=== PATIENT | female | born 1940 | race Caucasian/White ===

== ENCOUNTER 2019-05-05 06:55 | Inpatient (IN) ==
[2019-05-05] MEDS ORDERED: ONDANSETRON INJ 2 MG/ML 2 ML VIAL IV STA (07:12)
[2019-05-05] MEDS ORDERED: ASPIRIN CHEW 324 MG PO STA (07:12)
--- NOTE | 2019-05-05 07:17 | Emergency Department Note ---
History of Present Illness General Chief complaint: Arm Pain Stated complaint: LFT ARM PAIN Time Seen by Provider: 05/05/19 07:04 History of Present Illness Maximum Pain Intensity: 6 This 78-year-old female with a history of CAD with bypass and stent placement presents the ER with chief complaint of left arm and jaw pain and chest pain. The patient states that the chest pain is minimal. She is unable to give it a number on a scale of 1-10. The patient states that the pain is mainly at her elbow but also points to her shoulder and into her hand. She states the pain started at 5:00 this morning. The patient is not on any blood thinners. She normally takes an aspirin in the morning but did not take it this morning. The patient denies any increased shortness of breath. The daughter states that the patient was dizzy yesterday but the patient is not dizzy today. The patient is diabetic and after she ate yesterday she felt better. The patient denies any leg pain or swelling in her legs. The patient is followed by Dr. Gupta. The patient denies tobacco use. She has a history of hypertension and hyperlipidemia. Home Medications Home Medications Medication Instructions Recorded Confirmed Type aspirin [Aspir-81] 81 mg PO HS 06/12/18 05/05/19 History famotidine 10 mg PO BIDM 06/12/18 05/05/19 History omega 0-dty-xmu-fish oil [Fish Oil] 1,000 mg PO BIDM 06/12/18 05/05/19 History rosuvastatin 40 mg PO HS 06/12/18 05/05/19 History blood sugar diagnostic #10 ea 09/25/18 04/10/19 History blood-glucose meter #1 ea 09/25/18 04/10/19 History ranolazine 500 mg tablet,extended 500 mg PO Q12H #180 tab 11/13/18 05/05/19 Rx release,12 hr furosemide 20 mg tablet 10 mg PO QAM #30 tab 01/30/19 05/05/19 Rx insulin glargine 100 unit/mL (3 14 units SUBCUT BID #3 ml 01/30/19 05/05/19 Rx mL) subcutaneous pen insulin lispro 100 unit/mL 9 unit SUBCUT TID #3 ml 01/30/19 05/05/19 Rx subcutaneous pen levothyroxine 50 mcg tablet 50 mcg PO .COMPLEX #30 tab 01/30/19 05/05/19 Rx pen needle, diabetic 32 gauge x #600 ea 04/10/19 04/10/19 Rx 5/32" amlodipine 2.5 mg PO QAM 05/05/19 05/05/19 History losartan 50 mg PO QAM 05/05/19 05/05/19 History metoprolol succinate 50 mg PO HS 05/05/19 05/05/19 History Allergies Allergy/AdvReac Type Severity Reaction Status Date / Time risperidone [From Risperdal] Allergy Unknown ON [facility] Verified 05/05/19 07:41 LIST Past Med/Surg History Medical History Anemia Chronic kidney disease, stage IV (severe) CKD (chronic kidney disease) Coronary artery disease involving coronary bypass graft 1995 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 Diabetes Diabetic retinopathy, nonproliferative GERD without esophagitis History of breast cancer Lumpectomy plus radiation Hyperlipidemia Hypothyroidism Mild cardiomegaly 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 Surgical History H/O lumpectomy left breast 1984 History of appendectomy History of lumbar surgery Family History Brother Alcohol abuse Heart disease Diabetes Hypertension Kidney disease Myocardial infarction Father Myocardial infarction Hypertension Diabetes Heart disease Stroke, Onset Age: 56 of stroke at age 56 Mother Heart disease Diabetes Gallbladder disease Myocardial infarction Unknown Breast cancer Other Family history non-contributory Social History Preferred Language: Polish Communication Ability: Effective Visual Impairment: No Limitations Hearing Ability: Normal Beliefs That Will Affect Care: None marital status: / Current Living Situation: Alone current occupational status: retired Other Information That Helps Us Care for You: No Feels Safe at Home: Yes Safety Concerns: Feels Safe At This Time Smoking Status: Never smoker Hx Alcohol Use: No Hx Substance Use: No Childhood Exposure to Second-Hand Smoke: No Dental Care, Regularly: No Physical Activity Frequency: Daily Seatbelt Use: always Sunscreen Use: No Review of Systems A total of 10 systems reviewed and were otherwise negative Physical Exam Vital Signs Vital Signs - 24 hr 05/05/19 06:57 05/05/19 07:35 05/05/19 07:40 Temperature 36.7 C Temperature Source Oral Pulse Rate 64 63 Pulse Rate from SpO2 Sensor 64 Respiratory Rate 18 19 Respiratory Effort / Characteristics Non-Labored Respiratory Depth Normal Blood Pressure 157/80 H 149/73 H Blood Pressure Mean 105 115 Pulse Oximetry 99 99 97 Oxygen Delivery Method Room Air Room Air Room Air Sepsis Recent Fever Within 48 Hours No Sepsis Action Taken by Nursing No Action Required 05/05/19 08:00 05/05/19 08:30 05/05/19 09:00 Temperature Temperature Source Pulse Rate 62 63 62 Pulse Rate from SpO2 Sensor 69 63 62 Respiratory Rate 12 21 22 Respiratory Effort / Characteristics Respiratory Depth Blood Pressure 177/64 H 140/93 154/91 H Blood Pressure Mean 104 119 119 Pulse Oximetry 98 99 98 Oxygen Delivery Method Room Air Room Air Room Air Sepsis Recent Fever Within 48 Hours Sepsis Action Taken by Nursing 05/05/19 09:30 Temperature Temperature Source Pulse Rate 64 Pulse Rate from SpO2 Sensor 63 Respiratory Rate 17 Respiratory Effort / Characteristics Respiratory Depth Blood Pressure 135/62 Blood Pressure Mean 92 Pulse Oximetry 100 Oxygen Delivery Method Sepsis Recent Fever Within 48 Hours Sepsis Action Taken by Nursing GENERAL: 78-year-old female appears in no acute distress. MENTAL Status: Alert and oriented x3. Thought processes good. The patient answers questions appropriately. No slurring of speech. EYES: PERRLA. EOMs intact. EARS: Canals clear. TMs without fluid level noted. NECK: Supple, no lymphadenopathy noted. No carotid bruits noted. LUNGS: Clear auscultation without wheezes rales or rhonchi. CARDIAC: Regular rate and rhythm 2 out of 6 murmur noted at the right sternal border. Pulses is full and equal throughout. ABDOMEN: Positive bowel sounds all 4 quadrants. Soft, nontender to palpation without organomegaly or masses. LOWER EXTREMITIES: No cyanosis or edema noted. Mild tenderness palpation over both calves. NEURO:Cranial nerves two through 12 intact. Cerebellar function intact with [id number]. Fine motor intact with alternating finger motions. Course Administered Medications [facility]ip[facility] ([facility]asc) [facility] [place] Stop: 06/04/19 10:28 Last Admin: 05/05/19 11:22 Dose: 2.5 mg Documented by: [id number] Aspirin (Ecotrin Ectab) 81 mg PO HS [facility] Stop: 06/04/19 20:59 Last Admin: 05/05/19 20:36 Dose: 81 mg Documented by: [id number] Famotidine (Pepcid) 10 mg PO BIDM [facility] Stop: 06/04/19 16:59 Last Admin: 05/05/19 16:45 Dose: 10 mg Documented by: [id number] Fish Oil (Raymond-3 (Purified Fish Oil)) 1 gm PO BIDM [facility] Stop: 06/04/19 16:59 Last Admin: 05/05/19 16:45 Dose: 1 gm Documented by: [id number] Sodium Chloride (Nss 1000ml) 1,000 mls @ 75 mls/hr IV .[id number] [facility] Stop: 06/04/19 10:59 Last Admin: 05/06/19 00:58 Dose: 75 mls/hr Documented by: [id number] Infusion: 05/06/19 00:42 Dose: 75 mls/hr Documented by: [id number] Admin: 05/05/19 11:22 Dose: 75 mls/hr Documented by: [id number] Heparin Sodium/Dextrose (Heparin Sodium/Dextrose) 25,000 units in 500 mls @ 23 mls/hr IV .[id number] [facility]; Protocol Stop: 06/04/19 12:29 Last Admin: 05/05/19 13:24 Dose: 1,150 units/hr, 23 mls/hr Documented by: [id number] Cosigned by: [id number] Insulin Aspart (Novolog Flexpen) 0 units SC ACHS [facility] Stop: 06/04/19 11:29 Last Admin: 05/05/19 20:37 Dose: Not Given Documented by: [id number] Cosigned by: [id number] Admin: 05/05/19 16:47 Dose: 13 units Documented by: [id number] Cosigned by: [id number] Admin: 05/05/19 12:09 Dose: 5 units Documented by: [id number] Cosigned by: [id number] Levothyroxine Sodium (Synthroid) 50 mcg PO DAILYBB [facility] Stop: 06/04/19 10:28 Last Admin: 05/06/19 05:33 Dose: 50 mcg Documented by: [id number] Admin: 05/05/19 11:23 Dose: 50 mcg Documented by: [id number] Losartan Potassium (Cozaar) [facility] [place] Stop: 06/04/19 10:28 Last Admin: 05/05/19 11:23 Dose: 50 mg Documented by: [id number] Metoprolol Succinate (Toprol Xl) 50 mg PO [facility] Stop: 06/04/19 20:59 Last Admin: 05/05/19 20:36 Dose: 50 mg Documented by: [id number] Ranolazine (Ranexa) 500 mg PO Q12 [facility] Stop: 06/04/19 10:28 Last Admin: 05/05/19 20:36 Dose: 500 mg Documented by: [id number] Admin: 05/05/19 11:23 Dose: 500 mg Documented by: [id number] Rosuvastatin Calcium (Crestor) 40 mg PO [facility] Stop: 06/04/19 20:59 Last Admin: 05/05/19 20:36 Dose: 40 mg Documented by: [id number] Discontinued Medications Aspirin (Aspirin) 324 mg PO NOW STA Stop: 05/05/19 07:13 Last Admin: 05/05/19 07:42 Dose: 324 mg Documented by: [id number] Clopidogrel Bisulfate (Plavix) 300 mg PO NOW ONE Stop: 05/05/19 12:33 Last Admin: 05/05/19 14:33 Dose: 300 mg Documented by: [id number] Heparin Sodium/Dextrose () 1 ea IV Q1H [facility]; Protocol Stop: 06/04/19 12:24 Last Admin: 05/05/19 14:50 Dose: Not Given Documented by: [id number] Admin: 05/05/19 14:33 Dose: 1 ea Documented by: [id number] Admin: 05/05/19 13:24 Dose: Not Given Documented by: [id number] Nitroglycerin (Nitro-Bid 2%) 1 inch EXT NOW ONE Stop: 05/05/19 07:22 Last Admin: 05/05/19 07:42 Dose: 1 inch Documented by: [id number] Ondansetron HCl (Zofran) 4 mg IV NOW STA Stop: 05/05/19 07:13 Last Admin: 05/05/19 07:42 Dose: 4 mg Documented by: [id number] Medical Decision Making Differential Diagnosis Acute MA, angina, cervical radiculopathy Medical Records Attestation: I reviewed the patient's medical records. Home Medications Current Medication List: was personally reviewed by me Laboratory Data Attestation: I reviewed the patient's lab results. Result diagrams: 05/06/19 05:42 05/05/19 07:34 Lab Results 05/05/19 05/05/19 05/05/19 Range/Units 07:15 07:34 07:34 WBC 8.30 (4.8-10.8) K/uL RBC 3.68 L (4.2-5.4) M/uL Hgb 11.0 L (12.0-16.0) g/dL Hct 33.4 L (37-47) % MCV 90.8 (80-100) fL MCH 29.9 (25-34) pg MCHC 32.9 (32-36) g/dL RDW Std Deviation 45.1 (36.4-46.3) fL RDW Coeff of Shelli 13.6 (11.5-14.5) % Plt Count 212 (130-400) K/uL MPV 10.6 H (7.4-10.4) fL Immature Gran % (Auto) 0.5 % Neut % (Auto) 60.9 % Lymph % (Auto) 26.6 % Borden % (Auto) 8.2 % Eos % (Auto) 3.7 % Baso % (Auto) 0.1 % Immature Gran # (Auto) 0.04 H (0.00-0.02) K/uL Neut # (Auto) 5.05 (1.4-6.5) K/uL Lymph # (Auto) 2.21 (1.2-3.4) K/uL Borden # (Auto) 0.68 H (0.11-0.59) K/uL Eos # (Auto) 0.31 (0-0.5) K/uL Baso # (Auto) 0.01 (0-0.2) K/uL PT 10.9 (9.0-12.0) Seconds INR 1.0 (0.9-1.1) APTT 29.2 (21.0-31.0) Seconds PTT Ratio 1.0 Sodium (136-145) mmol/L Potassium (3.5-5.1) mmol/L Chloride (98-107) mmol/L Carbon Dioxide (21-32) mmol/L Anion Gap (3-11) BUN (7-18) mg/dl Creatinine (0.6-1.2) mg/dl Est Cr Clr Drug Dosing Est GFR ( Amer) Est GFR (Non-Af Amer) BUN/Creatinine Ratio (10-20) Glucose (70-99) mg/dl POC Glucose 211 H (70-99) mg/dl Calcium (8.5-10.1) mg/dl Total Bilirubin (0.2-1) mg/dl AST (15-37) U/L ALT (12-78) U/L Alkaline Phosphatase (45-117) U/L CK-MB (CK-2) (0.5-3.6) ng/ml Troponin I (0-0.045) ng/ml Total Protein (6.4-8.2) gm/dl Albumin (3.4-5.0) gm/dl Globulin (2.5-4.0) gm/dl Albumin/Globulin Ratio (0.9-2) Lipase (73-393) U/L 05/05/19 Range/Units 07:34 WBC (4.8-10.8) K/uL RBC (4.2-5.4) M/uL Hgb (12.0-16.0) g/dL Hct (37-47) % MCV (80-100) fL MCH (25-34) pg MCHC (32-36) g/dL RDW Std Deviation (36.4-46.3) fL RDW Coeff of Shelli (11.5-14.5) % Plt Count (130-400) K/uL MPV (7.4-10.4) fL Immature Gran % (Auto) % Neut % (Auto) % Lymph % (Auto) % Borden % (Auto) % Eos % (Auto) % Baso % (Auto) % Immature Gran # (Auto) (0.00-0.02) K/uL Neut # (Auto) (1.4-6.5) K/uL Lymph # (Auto) (1.2-3.4) K/uL Borden # (Auto) (0.11-0.59) K/uL Eos # (Auto) (0-0.5) K/uL Baso # (Auto) (0-0.2) K/uL PT (9.0-12.0) Seconds INR (0.9-1.1) APTT (21.0-31.0) Seconds PTT Ratio Sodium 136 (136-145) mmol/L Potassium 4.9 (3.5-5.1) mmol/L Chloride 101 (98-107) mmol/L Carbon Dioxide 28 (21-32) mmol/L Anion Gap 7.0 (3-11) BUN 43 H (7-18) mg/dl Creatinine 2.25 H (0.6-1.2) mg/dl Est Cr Clr Drug Dosing Not Reportable Est GFR ( Amer) 23.4 Est GFR (Non-Af Amer) 20.2 BUN/Creatinine Ratio 19.1 (10-20) Glucose 230 H (70-99) mg/dl POC Glucose (70-99) mg/dl Calcium 9.7 (8.5-10.1) mg/dl Total Bilirubin 0.5 (0.2-1) mg/dl AST 16 (15-37) U/L ALT 15 (12-78) U/L Alkaline Phosphatase 66 (45-117) U/L CK-MB (CK-2) < 1.0 (0.5-3.6) ng/ml Troponin I 0.099 H* (0-0.045) ng/ml Total Protein 8.5 H (6.4-8.2) gm/dl Albumin 3.2 L (3.4-5.0) gm/dl Globulin 5.2 H (2.5-4.0) gm/dl Albumin/Globulin Ratio 0.6 L (0.9-2) Lipase 94 (73-393) U/L Imaging Data Attestation: I personally reviewed and interpreted this imaging study as follows: My Impression: No acute infiltrate noted Radiologist's Impression: XR chest 1V portable CLINICAL HISTORY: 78 years-old Female presenting with Chest Pain. TECHNIQUE: Portable upright AP view of the chest was obtained. COMPARISON: 06/12/2018. FINDINGS: Median sternotomy wires and mediastinal surgical clips noted. Atherosclerosis of the thoracic aorta. Mitral annular calcification noted. Cardiac silhouette normal in size. Mildly low lung volumes and heterogeneity of lung parenchyma. Minimal peripheral left basilar opacity. No large effusion or pneumothorax. Degenerative changes of the thoracic spine. Upper abdomen normal. IMPRESSION: 1. Minimal left basilar opacity, possibly atelectasis or scarring. No convincing evidence of acute cardiopulmonary disease. ACT 112: Negative or not required by law. Electronically signed by: Jeff Gilbert M.D. 05/05/2019 7:45 AM Dictated: 05/05/1943 Transcribed: 05/05/19742 ECG Data Indication: + chest pain Rate (beats per minute): 64 Rhythm: + normal sinus ECG ST segments: + Nonspecific ST abnormalities Comparison ECG Date: from (June 12, 2018) Change: the following changes noted Additional Comments: New right bundle branch block MDM Narrative The patient was evaluated. The patient was placed on a manager cardiac with a rate of 68. Patient was placed on continuous pulse ox. IV access was obtained. EKG was ordered interpreted as above with new right bundle ramu block but no ST changes as compared to prior EKG of June 122018 see above. The patient was given 1 inch of Nitropaste. Patient was given 324 mg of chewable aspirin. She was given Zofran 4 mg IV for nausea. CBC differential, renal profile, LFTs, coags, troponin, CK-MB were ordered. Portable chest x-ray was ordered turbid by the radiologist and myself as above without any acute findings. White count was normal at 8.3, hemoglobin slightly low 11.0 hematocrit low at 33.4. Coags were normal. The patient was reevaluated and states that her chest pain was still intermittent but not current at this time. The patient also stated that this felt similar to when she had angina prior to her bypass surgery many years ago. The patient's troponin was bumped at 0.099. BUN was elevated at 43 and creatinine was 2.25. This is consistent with her chronic renal disease. , drinking water technician was contacted as well as the not any hospitalist for admission. The patient was independently evaluated by Dr. aPrker who agrees with treatment plan. Repeat EKG was ordered without any change from the first EKG. Impression & Plan Chest pain, CAD (coronary artery disease), Elevated troponin Discharge Plan Visit Data *Final* Discharge Date/Time: 05/05/19 10:00 Chief Complaint: Arm Pain Stated Complaint: LFT ARM PAIN ED Provider: [facility] ED Midlevel Provider: Sumaya Dunne Discharge Problem: Chest pain, CAD (coronary artery disease), Elevated troponin Patient Disposition: Admitted As Inpatient Condition: Good Discharge Instructions Interventions: ED Discharge Assessment Last Done: 05/05/19 10:00 Discharge Problem: Chest pain Qualifiers: Chest pain type: unspecified Qualified Code(s): R07.9 - Chest pain, unspecified CAD (coronary artery disease) Qualifiers: Coronary Disease-Associated Artery/Lesion type: unspecified vessel or lesion type [place] vs. transplanted heart: [place] heart Associated angina: angina presence unspecified Qualified Code(s): I25.10 - Atherosclerotic heart disease of [place] coronary artery without angina pectoris
[2019-05-05] MEDS ORDERED: NITROGLYCERIN 2% OINTMENT 30GM TUBE EXT ONE (07:21)
[2019-05-05 07:43] LABS: Basophils # (auto) 0.01 K/uL (0-0.2); Basophils % (auto) 0.1 %; Eosinophils # (auto) 0.31 K/uL (0-0.5); Eosinophils % (auto) 3.7 %; Hematocrit (blood only) 33.4 % (37-47); Immature Granulocytes # (auto) 0.04 K/uL (0.00-0.02); Immature Granulocytes % (auto) 0.5 %; Lymphocytes # (auto) 2.21 K/uL (1.2-3.4); Lymphocytes % (auto) 26.6 %; Mean Corpuscular Hemoglobin 29.9 pg (25-34); Mean Corpuscular Hgb Conc 32.9 g/dL (32-36); Mean Corpuscular Volume 90.8 fL (80-100); Mean Platelet Volume 10.6 fL (7.4-10.4); Monocytes # (auto) 0.68 K/uL (0.11-0.59); Monocytes % (auto) 8.2 %; Neutrophils # (auto) 5.05 K/uL (1.4-6.5); Neutrophils % (auto) 60.9 %; Platelet Count 212 K/uL (130-400); RDW Coefficient of Variation 13.6 % (11.5-14.5); RDW Standard Deviation 45.1 fL (36.4-46.3); Red Blood Count 3.68 M/uL (4.2-5.4)
--- NOTE | 2019-05-05 07:46 | XRay Report ---
XR chest 1V portable CLINICAL HISTORY: 78 years-old Female presenting with Chest Pain. TECHNIQUE: Portable upright AP view of the chest was obtained. COMPARISON: 06/12/2018. FINDINGS: Median sternotomy wires and mediastinal surgical clips noted. Atherosclerosis of the thoracic aorta. Mitral annular calcification noted. Cardiac silhouette normal in size. Mildly low lung volumes and he terogeneity of lung parenchyma. Minimal peripheral left basilar opacity. No large effusion or pneumot horax. Degenerative changes of the thoracic spine. Upper abdomen normal. IMPRESSION: 1. Minimal left basilar opacity, possibly atelectasis or scarring. No convincing evidence of acute c ardiopulmonary disease. ACT 112: Negative or not required by law. Electronically signed by: Jeff Gilbert M.D. 05/05/2019 7:45 AM
[2019-05-05 07:54] LABS: Partial Thromboplastin Time 29.2 Seconds (21.0-31.0); Prothrombin Time 10.9 Seconds (9.0-12.0)
[2019-05-05 08:01] LABS: Alanine Aminotransferase 15 U/L (12-78); Albumin Level 3.2 gm/dl (3.4-5.0); Aspartate Aminotransferase 16 U/L (15-37); BUN Creatinine Ratio 19.1 (10-20); Blood Urea Nitrogen 43 mg/dl (7-18); Calcium 9.7 mg/dl (8.5-10.1); Carbon Dioxide 28 mmol/L (21-32); Chloride 101 mmol/L (98-107); Est GFR (African American) 23.4; Est GFR (Non-African American) 20.2; Glucose 230 mg/dl (70-99); Lipase 94 U/L (73-393); Potassium 4.9 mmol/L (3.5-5.1); Sodium 136 mmol/L (136-145)
[2019-05-05 08:11] LABS: Albumin Globulin Ratio 0.6 (0.9-2); Alkaline Phosphatase 66 U/L (45-117); Bilirubin,Total 0.5 mg/dl (0.2-1); Creatine Kinase MB < 1.0 ng/ml (0.5-3.6); Globulin 5.2 gm/dl (2.5-4.0); Total Protein 8.5 gm/dl (6.4-8.2); Troponin I 0.099 ng/ml (0-0.045)
--- NOTE | 2019-05-05 08:25 | Emergency Department Note ---
ED Visit Note Patient was seen by our PA/ORTHOPEDIC PHYSICAL THERAPIST. I was involved in the patient's care and did evaluate the patient myself. I was involved in the care throughout the ER stay. Patient presents with chest and left arm pain. She does have a coronary history. She has a mild elevation to her cardiac troponin, her EKG does not show any acute ST changes. Hospitalization is warranted. She has received aspirin and nitroglycerin paste. .
--- NOTE | 2019-05-05 08:31 | History & Physical Report ---
Date of Service May 05, 2019 History of Present Illness Primary Care Provider: JERONIMO Raines Allergies Allergy/AdvReac Type Severity Reaction Status Date / Time risperidone [From Risperdal] Allergy Unknown ON [facility] Verified 05/05/19 07:41 LIST Home Medications Home Medications Medication Instructions Recorded Confirmed Type aspirin [Aspir-81] 81 mg PO HS 06/12/18 05/05/19 History famotidine 10 mg PO BIDM 06/12/18 05/05/19 History omega 2-ziy-zfs-fish oil [Fish Oil] 1,000 mg PO BIDM 06/12/18 05/05/19 History rosuvastatin 40 mg PO HS 06/12/18 05/05/19 History blood sugar diagnostic #10 ea 09/25/18 04/10/19 History blood-glucose meter #1 ea 09/25/18 04/10/19 History ranolazine 500 mg tablet,extended 500 mg PO Q12H #180 tab 11/13/18 05/05/19 Rx release,12 hr furosemide 20 mg tablet 10 mg PO QAM #30 tab 01/30/19 05/05/19 Rx insulin glargine 100 unit/mL (3 14 units SUBCUT BID #3 ml 01/30/19 05/05/19 Rx mL) subcutaneous pen insulin lispro 100 unit/mL 9 unit SUBCUT TID #3 ml 01/30/19 05/05/19 Rx subcutaneous pen levothyroxine 50 mcg tablet 50 mcg PO .COMPLEX #30 tab 01/30/19 05/05/19 Rx pen needle, diabetic 32 gauge x #600 ea 04/10/19 04/10/19 Rx 5/32" amlodipine 2.5 mg PO QAM 05/05/19 05/05/19 History losartan 50 mg PO QAM 05/05/19 05/05/19 History metoprolol succinate 50 mg PO HS 05/05/19 05/05/19 History Past Med/Surg History Medical History Anemia Chronic kidney disease, stage IV (severe) CKD (chronic kidney disease) Coronary artery disease involving coronary bypass graft 1995 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 Diabetes Diabetic retinopathy, nonproliferative GERD without esophagitis Hyperlipidemia Hypothyroidism Mild cardiomegaly 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 Surgical History H/O lumpectomy left breast 1985 History of appendectomy History of lumbar surgery Family History Brother Alcohol abuse Heart disease Diabetes Hypertension Kidney disease Myocardial infarction Father Myocardial infarction Hypertension Diabetes Heart disease Mother Heart disease Diabetes Gallbladder disease Myocardial infarction Unknown Breast cancer Other Family history non-contributory Social History Preferred Language: [place] Communication Ability: Effective Visual Impairment: No Limitations Hearing Ability: Normal Beliefs That Will Affect Care: None marital status: / Current Living Situation: Alone current occupational status: retired Feels Safe at Home: Yes Smoking Status: Never smoker Hx Alcohol Use: No Hx Substance Use: No Childhood Exposure to Second-Hand Smoke: No Dental Care, Regularly: No Physical Activity Frequency: Daily Seatbelt Use: always Sunscreen Use: No Results & Data Vital Signs (Past 12 Hours) Vital Signs Temp Pulse Resp BP Pulse Ox 05/05/19 07:40 97 05/05/19 07:35 63 19 149/73 H 99 05/05/19 06:57 36.7 C 64 18 157/80 H 99 PG Care Time/CCT Total # of Minutes Spent Total Time Spent with Patient: Total time spent is greater than 50% in coordination of care (as documented) at patient's floor/unit and/or counseling patient: Coding
--- NOTE | 2019-05-05 09:30 | History & Physical Report ---
Date of Service May 05, 2019 Assessment & Plan (1) Chest pain: Patient presents with chest pain which started this morning. Currently Nitropaste in place and chest pain is resolved Elevated troponin at 0.099 EKG with new right bundle branch block and some J-point transition Check serial isodose Consult cardiology for evaluation and is much as patient has had previous history of four-vessel CABG and subsequent stent placement CT head is negative We will discuss heparin drip with Dr. Echavarria. In the meantime we will start heparin every 8 hours (2) CAD (coronary artery disease): History of four-vessel CABG 24 years ago Patient then reports catheterization with PCI with multiple stents placed approximately 12 years ago No further intervention over the last 10 years Continue cardioprotective meds including metoprolol, aspirin Patient states that she has never been on an anticoagulant or antiplatelet agent other than aspirin. Monitor on telemetry (3) Hypertension: Home medications include metoprolol, amlodipine, losartan. We will give a.m. doses of those medications now Follow on telemetry Cardiology consult pending. (4) Type 2 diabetes mellitus with complications: Poorly controlled with diabetic complications including retinopathy, neph ropathy, cardiomyopathy Most previous hemoglobin A1c was from 11/2018 and was 9.6 Check hemoglobin A1c with 1:00 labs Continue with NovoLog sliding scale insulin Continue with baseline insulin other than Lantus. We will resume Lantus tomorrow morning once patient's diet is resumed if no catheterization is needed. (5) GERD without esophagitis: Continue on famotidine (6) Chronic kidney disease, stage IV (severe): Patient reports that this is secondary to her poorly controlled diabetes Currently creatinine is 2.25 We will start normal saline solution at 75 mL an hour and follow serial labs Follow urine output Potassium is currently 4.9 No history of dialysis or consideration of dialysis in the past (7) Anemia: MCV is within normal limits Hemoglobin is currently stable above 11 Follow serial labs (8) Hypothyroidism: Continue levothyroxine (9) Hyperlipidemia: Continue rosuvastatin (10) DVT prophylaxis: Patient may require heparin drip For now, heparin 5000 units subcu every 8 hours History of Present Illness Primary Care Provider: JERONIMO Raines Attending: Dr. Lee This is a 78-year-old female with a past medical history of CAD with four-vessel CABG, subsequent stenting, chronic anemia, hypertension, diabetes mellitus type 2 requiring insulin, elevated hemoglobin A1c of 9.6, hypertension, hyperlipidemia, hypothyroidism, CKD stage IV, diabetic retinopathy, and GERD. She states that she woke up this morning with chest pain that was intermittent.She reports that yesterday she had some confusion in the morning that was transient. She states that she had a headache at that time. This morning she states that she woke up about 530 and had chest pain rated 6 out of 10 with pain radiating into the left arm. She denied any shortness of breath. She had no increase of chest pain with ambulation this morning. The patient denies any fever or chills. No recent travel or illness. She called her daughter at home who suggested that she call 911. The patient refused. The daughter then came to the house evaluated the patient and drove her to the emergency room for further evaluation. On arrival the patient was found to have an elevated troponin of 0.099. She also had an EKG which shows new right bundle branch block as well as some J-point transition. The patient is chest point has been transient since arrival in the emergency department. She does have Nitropaste applied which seems to help. The patient currently has no pain of any sort. She has no shortness of breath. She reports no diuresis. There is no sense of impending doom. The patient has a past medical history which includes coronary artery disease with four-vessel CABG 24 years ago. Approximately 12 years ago she had cardiac catheterization with stent placement. She has had no new cardiac events over the last decade. She has no history of carotid bruits or stenosis. She has no pulmonary disease. She states that she smoked for a brief period but did not inhale. She denies tobacco abuse for the past 50 years. The patient has no thromboembolic disease history. She does have a history of breast cancer with lumpectomy greater than 10 years ago. She has no other history of malignancy. Allergies Allergy/AdvReac Type Severity Reaction Status Date / Time risperidone [From Risperdal] Allergy Unknown ON [facility] Verified 05/05/19 07:41 LIST Home Medications Home Medications Medication Instructions Recorded Confirmed Type aspirin [Aspir-81] 81 mg PO HS 06/12/18 05/05/19 History famotidine 10 mg PO BIDM 06/12/18 05/05/19 History omega 7-frs-vjt-fish oil [Fish Oil] 1,000 mg PO BIDM 06/12/18 05/05/19 History rosuvastatin 40 mg PO HS 06/12/18 05/05/19 History blood sugar diagnostic #10 ea 09/25/18 04/10/19 History blood-glucose meter #1 ea 09/25/18 04/10/19 History ranolazine 500 mg tablet,extended 500 mg PO Q12H #180 tab 11/13/18 05/05/19 Rx release,12 hr furosemide 20 mg tablet 10 mg PO QAM #30 tab 01/30/19 05/05/19 Rx insulin glargine 100 unit/mL (3 14 units SUBCUT BID #3 ml 01/30/19 05/05/19 Rx mL) subcutaneous pen insulin lispro 100 unit/mL 9 unit SUBCUT TID #3 ml 01/30/19 05/05/19 Rx subcutaneous pen levothyroxine 50 mcg tablet 50 mcg PO .COMPLEX #30 tab 01/30/19 05/05/19 Rx pen needle, diabetic 32 gauge x #600 ea 04/10/19 04/10/19 Rx 5/32" amlodipine 2.5 mg PO QAM 05/05/19 05/05/19 History losartan 50 mg PO QAM 05/05/19 05/05/19 History metoprolol succinate 50 mg PO HS 05/05/19 05/05/19 History Past Med/Surg History Medical History Anemia Chronic kidney disease, stage IV (severe) CKD (chronic kidney disease) Coronary artery disease involving coronary bypass graft 1995 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 Diabetes Diabetic retinopathy, nonproliferative GERD without esophagitis History of breast cancer Lumpectomy plus radiation Hyperlipidemia Hypothyroidism Mild cardiomegaly 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 Surgical History H/O lumpectomy left breast 1984 History of appendectomy History of lumbar surgery Family History Brother Alcohol abuse Heart disease Diabetes Hypertension Kidney disease Myocardial infarction Father Myocardial infarction Hypertension Diabetes Heart disease Stroke, Onset Age: 56 of stroke at age 56 Mother Heart disease Diabetes Gallbladder disease Myocardial infarction Unknown Breast cancer Other Family history non-contributory Social History Preferred Language: [place] Communication Ability: Effective Visual Impairment: No Limitations Hearing Ability: Normal Beliefs That Will Affect Care: None marital status: / Current Living Situation: Alone current occupational status: retired Other Information That Helps Us Care for You: No Feels Safe at Home: Yes Safety Concerns: Feels Safe At This Time Smoking Status: Never smoker Hx Alcohol Use: No Hx Substance Use: No Childhood Exposure to Second-Hand Smoke: No Dental Care, Regularly: No Physical Activity Frequency: Daily Seatbelt Use: always Sunscreen Use: No Review of Systems Review of Systems: All systems reviewed & are unremarkable except as noted in HPI & below Physical Exam Physical Exam: GENERAL : No acute distress EYES: No icterus, gaze conjugate NOSE: No evidence of epistaxis MOUTH: No lesions or candidiasis. Dentures in place NECK: Supple LUNGS: CTA B/L, no wheezes, rales or rhonchi HEART: Regular, rate controlled ABDOMEN: Soft, NT, ND, BS Present EXTREMITIES: No LE edema, pedal pulses intact NEURO: A&OX3 Results & Data Vital Signs (Past 12 Hours) Vital Signs Temp Pulse Resp BP Pulse Ox 05/05/19 09:00 62 22 154/91 H 98 05/05/19 08:30 63 21 140/93 99 05/05/19 08:00 62 12 177/64 H 98 05/05/19 07:40 97 05/05/19 07:35 63 19 149/73 H 99 05/05/19 06:57 36.7 C 64 18 157/80 H 99 Laboratory Results 05/05/19 07:34 05/05/19 07:34 Abnormal lab results 05/05/19 05/05/19 05/05/19 Range/Units 07:15 07:34 07:34 RBC 3.68 L (4.2-5.4) M/uL Hgb 11.0 L (12.0-16.0) g/dL Hct 33.4 L (37-47) % MPV 10.6 H (7.4-10.4) fL Immature Gran # (Auto) 0.04 H (0.00-0.02) K/uL [place] # (Auto) 0.68 H (0.11-0.59) K/uL BUN 43 H (7-18) mg/dl Creatinine 2.25 H (0.6-1.2) mg/dl Glucose 230 H (70-99) mg/dl POC Glucose 211 H (70-99) mg/dl Troponin I 0.099 H* (0-0.045) ng/ml Total Protein 8.5 H (6.4-8.2) gm/dl Albumin 3.2 L (3.4-5.0) gm/dl Globulin 5.2 H (2.5-4.0) gm/dl Albumin/Globulin Ratio 0.6 L (0.9-2) Diagnostic Findings HEAD CT NONCONTRAST CT DOSE: 537.48 mGy.cm HISTORY: Memory lapse, may need heparin gtt TECHNIQUE: Multiaxial CT images of the head were performed without the use of intravenous contrast. Automated exposure control was utilized for this study. A dose lowering technique was utilized adhering to the principles of ALARA. Comparison: None. Findings: The paranasal sinuses and mastoid air cells are clear. The calvarium and skull base are intact. The ventricles and sulci are within normal limits. There is no mass, hematoma, midline shift, or acute infarct. Impression: No acute intracranial abnormality. Electronically signed by: Cesar Morrison M.D. 05/05/2019 9:55 AM XR chest 1V portable CLINICAL HISTORY: 78 years-old Female presenting with Chest Pain. TECHNIQUE: Portable upright AP view of the chest was obtained. COMPARISON: 06/12/2018. FINDINGS: Median sternotomy wires and mediastinal surgical clips noted. Atherosclerosis of the thoracic aorta. Mitral annular calcification noted. Cardiac silhouette normal in size. Mildly low lung volumes and heterogeneity of lung parenchyma. Minimal peripheral left basilar opacity. No large effusion or pneumothorax. Degenerative changes of the thoracic spine. Upper abdomen normal. IMPRESSION: 1. Minimal left basilar opacity, possibly atelectasis or scarring. No convincing evidence of acute cardiopulmonary disease. Electronically signed by: Jeff Gilbert M.D. 05/05/2019 7:45 AM Code Status & VTE Plan Code Status DNR/DNI. Discussion with patient with daughter in room. VTE Prophylaxis Plan VTE Prophylaxis will be ordered: Yes Supervising Physician Co-Signing Physician Notes Attending Attestation and Admission Note: Pt seen/examined, chart reviewed, care plan d/w PA Boone Cisse. I agree w/ the sebastian components of his documentation. 78yo female with known CAD s/p remote CABG, CKD stage 4, uncontrolled T2DM - presenting with chest pain. Initial troponin positive, and troponin has continued to rise modestly. Given her medical history her presentation is concerning for NSTEMI. During my assessment on the tele unit she denied any cp, dyspnea, or abdominal complaints. PMH, PSH, allergies, meds, sochx, famhx, ros - reviewed VSS gen - NAD neck - no JVD heart - RRR, s1 s2, 2/6 systolic murmur LSB lungs - cta b/l abd - soft NT ext - no edema labs reviewed - elevated Cr, elevated troponin EKG - my reading - NSR, RBBB, j-point elevation inferior leads and anterolateral leads cxr reviewed A/P: 1. probable NSTEMI 2. known CAD 3. h/o CABG 4. uncontrolled T2DM serial troponins appreciate cardiology consultation heparin drip ?cath vs medical management - poor candidate for cath due to CKD serial BMPs titrate lantus and novolog echo results noted w/ preserved EF Jorgito Lee MD PG Care Time/CCT Total # of Minutes Spent Total Time Spent with Patient: Total time spent is greater than 50% in coordination of care (as documented) at patient's floor/unit and/or counseling patient:50 minutes Coding Level of Care Code 55267 Initial Inpt Care Lvl 3 Diagnoses Chest pain R07.9 Chest pain type: unspecified CAD (coronary artery disease) I25.10 Associated angina: angina presence unspecified Coronary Disease-Associated Artery/Lesion type: unspecified vessel or lesion type [place] vs. transplanted heart: [place] heart Hypertension I10 Type 2 diabetes mellitus with complications E11.8 GERD without esophagitis K21.9 Chronic kidney disease, stage IV (severe) N18.4 Anemia D64.9 Hypothyroidism E03.9 Hyperlipidemia E78.5 DVT prophylaxis Z29.9 Time Spent (min) 50 (1) CAD (coronary artery disease) Associated angina: angina presence unspecified Coronary Disease-Associated Artery/Lesion type: unspecified vessel or lesion type [place] vs. transplanted heart: [place] heart Qualified Code(s): I25.10 - Atherosclerotic heart disease of [place] coronary artery without angina pectoris (2) Chest pain Chest pain type: unspecified Qualified Code(s): R07.9 - Chest pain, unspecified
--- NOTE | 2019-05-05 09:56 | CT Scan Report ---
HEAD CT NONCONTRAST CT DOSE: 537.48 mGy.cm HISTORY: Memory lapse, may need heparin gtt TECHNIQUE: Multiaxial CT images of the head were performed without the use of intravenous contrast. A utomated exposure control was utilized for this study. A dose lowering technique was utilized adheri ng to the principles of ALARA. Comparison: None. Findings: The paranasal sinuses and mastoid air cells are clear. The calvarium and skull base are int act. The ventricles and sulci are within normal limits. There is no mass, hematoma, midline shift, or acute infarct. Impression: No acute intracranial abnormality. ACT 112: Negative or not required by law. Electronically signed by: Cesar Morrison M.D. 05/05/2019 9:55 AM
[2019-05-05] MEDS ORDERED: ACETAMINOPHEN 325 MG TAB PO PRN (10:29)
[2019-05-05] MEDS ORDERED: MoRPHine SULFATE 2 MG/ML CARP IV PRN (10:29)
[2019-05-05] MEDS ORDERED: DEXTROSE 50% 50 ML SYRINGE IV PRN (10:29)
[2019-05-05] MEDS ORDERED: MAGNESIUM HYDROXIDE SUSP 30 ML UDC PO PRN (10:29)
[2019-05-05] MEDS ORDERED: CARBOHYDRATES FOR HYPOGLYCEMIA PO PRN (10:29)
[2019-05-05] MEDS ORDERED: PROMETHAZINE HCL 12.5 MG in SODIUM CHLORIDE 0.9% 50 ML IV PRN (10:29)
[2019-05-05] MEDS ORDERED: ALUMINUM/MAGNESIUM SUSP 30 ML UDC PO PRN (10:29)
[2019-05-05] MEDS ORDERED: POLYETHYLENE (MIRALAX) 17 GM PACK PO PRN (10:29)
[2019-05-05] MEDS ORDERED: LOSARTAN POTASSIUM 50 MG TAB PO SCH (10:29)
[2019-05-05] MEDS ORDERED: NITROGLYCERIN SL 0.4 MG/TAB TAB SL PRN (10:29)
[2019-05-05] MEDS ORDERED: GLUCAGON FOR INJ 1 MG VIAL SQ PRN (10:29)
[2019-05-05] MEDS ORDERED: GLUCOSE 10 TABS/TUBE PO PRN (10:29)
[2019-05-05] MEDS ORDERED: GLUCOSE 40% GEL 15 GM TUBE PO PRN (10:29)
[2019-05-05] MEDS: AMLODIPINE BESYLATE 5 MG TAB PO SCH (11:22)
[2019-05-05] MEDS: SODIUM CHLORIDE 0.9% 1000ML 1,000 ML IV SCH (11:22)
[2019-05-05] MEDS: RANOLAZINE 500 MG ER TAB PO SCH ×2 (11:23→20:36)
[2019-05-05] MEDS: LEVOTHYROXINE SODIUM 50 MCG TABLET PO SCH (11:23)
[2019-05-05] MEDS: INSULIN ASPART 100 UNITS/ML 3 ML PEN SC SCH ×3 (12:09→20:37)
[2019-05-05] MEDS ORDERED: CLOPIDOGREL BISULFATE 300 MG TAB PO ONE (12:32)
--- NOTE | 2019-05-05 12:45 | Cardiology Consultation ---
Date of Consultation May 05, 2019 Assessment & Plan (1) Chest pain: Given the patient's history, her symptoms are concerning for unstable angina. She has a very mild elevation in cardiac biomarkers which is different from values obtained previously. Her symptoms lasted well over an hour and I would expect a more significant rise in her markers over the next few hours that this truly represented ischemia. I think would be prudent to put her on a heparin infusion and provide her with some Plavix currently. She is currently pain-free and will continue nitrates. If she truly has unstable angina or evidence of an acute coronary syndrome the general recommendation is for coronary angiography. However, given her renal dysfunction she is at risk of contrast nephropathy and possibly the need for dialysis. I discussed this with her today. The patient in the past has refused dialysis. She seems to be at the mind set that she would not utilize dialysis even if she was in a life-threatening situation. At this point I have stops short of recommending angiography awaiting the results of her additional blood tests. Noninvasive options would include employment of nitrates and dual anti- platelet therapy. This is generally less satisfactory but may be an option if the patient chooses to avoid a catheterization. (2) CAD (coronary artery disease): She has previously undergone surgical and percutaneous intervention. We do not have any records of the interventions performed or her coronary anatomy. I did contact old early head start teacher but his office is closed today and tomorrow. She has been maintained on aspirin, metoprolol and rosuvastatin. She is also on ranolazine presumably for occasional symptoms of chest discomfort. (3) Mitral stenosis: She has moderate mitral stenosis on her echocardiogram today. There is no old echocardiogram to compare with her current study. Do not believe this is contributing to any symptoms currently. With her degree of mitral stenosis and left atrial dilation she is certainly at risk for atrial fibrillation. 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 Again, no old studies of which to compare. She was not familiar with this diagnosis. I do not believe this is an acute finding. Overall LV function remains normal. Occasionally this can be a focus for arrhythmia. However, she does not describe symptoms consistent with ventricular arrhythmias. Will continue her on her current medical regimen both for blood pressure control and placement of beta-blockade. Do not believe this currently represents an indication for anticoagulation long-term. History of Present Illness Reason for Consultation: Chest pain Requesting Physician: Tanna Attending Physician: Jorgito Lee History of Present Illness The patient is a 70-year-old woman with a history of coronary artery disease having previously undergone both surgical and percutaneous revascularization. According to the patient she was woken from sleep early this morning symptoms of left arm discomfort. This discomfort was primarily located in the left elbow. There is also some very mild chest pressure and left jaw discomfort. The symptoms were persistent in nature in fairly mild in severity. It did not appear to change with changes in position or any other intervention. The patient rested but her symptoms persisted for approximately 1 hour before she contacted her daughter who suggested transport to the emergency room. She arrived by private vehicle. At the time of arrival her symptoms were fairly minimal but she did have recurrence in the emergency room that appeared respond to application of topical nitroglycerin. Patient states she has otherwise been feeling well. She has not experienced this symptom since prior to her bypass over 25 years ago. She is fairly sedentary and limited primarily by leg weakness and discomfort. She does not report exertional dyspnea or symptoms of exertional chest pain. She has not been aware of any dizziness or lightheadedness. No syncope. She has rare palpitations which last for approximately 1 minute and are not associated with other symptoms. She claims to be compliant with her medical therapy. She has not noticed any swelling in her lower extremities. She denies orthopnea or paroxysmal nocturnal dyspnea. Currently she claims to be feeling well. No current chest pain. Allergies Allergy/AdvReac Type Severity Reaction Status Date / Time risperidone [From Risperdal] Allergy Unknown ON [facility] Verified 05/05/19 07:41 LIST Home Medications Home Medications Medication Instructions Recorded Confirmed Type aspirin [Aspir-81] 81 mg PO HS 06/12/18 05/05/19 History famotidine 10 mg PO BIDM 06/12/18 05/05/19 History omega 3-qdo-wio-fish oil [Fish Oil] 1,000 mg PO BIDM 06/12/18 05/05/19 History rosuvastatin 40 mg PO HS 06/12/18 05/05/19 History blood sugar diagnostic #10 ea 09/25/18 04/10/19 History blood-glucose meter #1 ea 09/25/18 04/10/19 History ranolazine 500 mg tablet,extended 500 mg PO Q12H #180 tab 11/13/18 05/05/19 Rx release,12 hr furosemide 20 mg tablet 10 mg PO QAM #30 tab 01/30/19 05/05/19 Rx insulin glargine 100 unit/mL (3 14 units SUBCUT BID #3 ml 01/30/19 05/05/19 Rx mL) subcutaneous pen insulin lispro 100 unit/mL 9 unit SUBCUT TID #3 ml 01/30/19 05/05/19 Rx subcutaneous pen levothyroxine 50 mcg tablet 50 mcg PO .COMPLEX #30 tab 01/30/19 05/05/19 Rx pen needle, diabetic 32 gauge x #600 ea 04/10/19 04/10/19 Rx 5/32" amlodipine 2.5 mg PO QAM 05/05/19 05/05/19 History losartan 50 mg PO QAM 05/05/19 05/05/19 History metoprolol succinate 50 mg PO HS 05/05/19 05/05/19 History Patient History Medical History Anemia Chronic kidney disease, stage IV (severe) CKD (chronic kidney disease) Coronary artery disease involving coronary bypass graft 1995 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 Diabetes Diabetic retinopathy, nonproliferative GERD without esophagitis History of breast cancer Lumpectomy plus radiation Hyperlipidemia Hypothyroidism Mild cardiomegaly 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 Surgical History H/O lumpectomy left breast 1984 History of appendectomy History of lumbar surgery Family History Brother Alcohol abuse Heart disease Diabetes Hypertension Kidney disease Myocardial infarction Father Myocardial infarction Hypertension Diabetes Heart disease Stroke, Onset Age: 56 of stroke at age 56 Mother Heart disease Diabetes Gallbladder disease Myocardial infarction Unknown Breast cancer Other Family history non-contributory Social History Preferred Language: Sudanese Communication Ability: Effective Visual Impairment: No Limitations Hearing Ability: Normal Beliefs That Will Affect Care: None marital status: / Current Living Situation: Alone current occupational status: retired Other Information That Helps Us Care for You: No Feels Safe at Home: Yes Safety Concerns: Feels Safe At This Time Smoking Status: Never smoker Hx Alcohol Use: No Hx Substance Use: No Childhood Exposure to Second-Hand Smoke: No Dental Care, Regularly: No Physical Activity Frequency: Daily Seatbelt Use: always Sunscreen Use: No Review of Systems Review of Systems: All systems reviewed & are unremarkable except as noted in HPI & below No recent fevers or chills. Physical Exam Physical Exam: She is alert and oriented x3. Mood affect appear normal. She answered all questions appropriately. HEENT: Sclerae are anicteric. Pupils are equal and reactive to light and accommodation. Extraocular movements were intact. Neuro: Cranial nerves intact Neck: Examination of the submandibular region did not reveal any significant lymphadenopathy. Carotids are palpable bilaterally and free of bruits on auscultation. There was no evidence of jugular venous distention. The thyroid was not enlarged. Lungs: Lungs are clear to auscultation bilaterally. There are no rales wheezes or rhonchi. She has normal respiratory effort without use of accessory muscles. There is normal pulmonary excursion. Cardiac: The rhythm was regular. S1 and S2 were normal. Holosystolic murmur. The PMI was not markedly displaced on palpation. Abdomen: The abdomen was soft and nontender. Extremities: Patient has bilateral radial pulses that are equal in intensity. There is no evidence cyanosis or clubbing. There was no evidence of significant peripheral edema bilaterally, just trace. Skin: There are no rashes noted on examination today. Results & Data ([facility]) Vital Signs (Past 12 Hours) Vital Signs Temp Pulse Pulse Resp BP BP Pulse Ox 05/05/19 12:00 36.6 C 61 18 137/61 100 05/05/19 10:22 36.6 C 67 18 176/68 H 99 05/05/19 09:51 66 17 140/98 96 05/05/19 09:30 64 17 135/62 100 05/05/19 09:00 62 22 154/91 H 98 05/05/19 08:30 63 21 140/93 99 05/05/19 08:00 62 12 177/64 H 98 05/05/19 07:40 97 05/05/19 07:35 63 19 149/73 H 99 05/05/19 06:57 36.7 C 64 18 157/80 H 99 Laboratory Results Abnormal Lab Results 05/05/19 05/05/19 05/05/19 07:15 07:34 07:34 WBC 8.30 RBC 3.68 L Hgb 11.0 L Hct 33.4 L MCV 90.8 MCH 29.9 MCHC 32.9 RDW Std Deviation 45.1 RDW Coeff of Shelli 13.6 Plt Count 212 MPV 10.6 H Immature Gran % (Auto) 0.5 Neut % (Auto) 60.9 Lymph % (Auto) 26.6 [place] % (Auto) 8.2 Eos % (Auto) 3.7 Baso % (Auto) 0.1 Immature Gran # (Auto) 0.04 H Neut # (Auto) 5.05 Lymph # (Auto) 2.21 [place] # (Auto) 0.68 H Eos # (Auto) 0.31 Baso # (Auto) 0.01 PT 10.9 INR 1.0 APTT 29.2 PTT Ratio 1.0 Sodium Potassium Chloride Carbon Dioxide Anion Gap BUN Creatinine Est Cr Clr Drug Dosing Est GFR ( Amer) Est GFR (Non-Af Amer) BUN/Creatinine Ratio Glucose POC Glucose 211 H Calcium Total Bilirubin AST ALT Alkaline Phosphatase CK-MB (CK-2) Troponin I Total Protein Albumin Globulin Albumin/Globulin Ratio Lipase 05/05/19 05/05/19 07:34 12:03 WBC RBC Hgb Hct MCV MCH MCHC RDW Std Deviation RDW Coeff of Shelli Plt Count MPV Immature Gran % (Auto) Neut % (Auto) Lymph % (Auto) [place] % (Auto) Eos % (Auto) Baso % (Auto) Immature Gran # (Auto) Neut # (Auto) Lymph # (Auto) [place] # (Auto) Eos # (Auto) Baso # (Auto) PT INR APTT PTT Ratio Sodium 136 Potassium 4.9 Chloride 101 Carbon Dioxide 28 Anion Gap 7.0 BUN 43 H Creatinine 2.25 H Est Cr Clr Drug Dosing Not Reportable Est GFR ( Amer) 23.4 Est GFR (Non-Af Amer) 20.2 BUN/Creatinine Ratio 19.1 Glucose 230 H POC Glucose 278 H Calcium 9.7 Total Bilirubin 0.5 AST 16 ALT 15 Alkaline Phosphatase 66 CK-MB (CK-2) < 1.0 Troponin I 0.099 H* Total Protein 8.5 H Albumin 3.2 L Globulin 5.2 H Albumin/Globulin Ratio 0.6 L Lipase 94 Diagnostic Findings Chest x-ray obtained the time of admission not reveal any acute cardiopulmonary findings His CT obtained at the time admission not reveal any acute intracranial process. ECG Additional Comments: EKG obtained the time admission reveals normal sinus rhythm with right bundle branch block. No significant ST or T-wave abnormalities. PG Care Time/CCT Total # of Minutes Spent Total Time Spent with Patient: Total time spent is greater than 50% in coordination of care (as documented) at patient's floor/unit and/or counseling patient: Coding Level of Care Code 93496 Initial Inpt Care Lvl 3 Diagnoses Chest pain R07.9 Chest pain type: unspecified CAD (coronary artery disease) I25.10 Associated angina: angina presence unspecified Coronary Disease-Associated Artery/Lesion type: unspecified vessel or lesion type [place] vs. transplanted heart: [place] heart Mitral stenosis I05.0 Ventricular aneurysm I25.3 (1) CAD (coronary artery disease) Associated angina: angina presence unspecified Coronary Disease-Associated Artery/Lesion type: unspecified vessel or lesion type [place] vs. transplanted heart: [place] heart Qualified Code(s): I25.10 - Atherosclerotic heart disease of [place] coronary artery without angina pectoris (2) Chest pain Chest pain type: unspecified Qualified Code(s): R07.9 - Chest pain, unspecified
--- NOTE | 2019-05-05 12:55 | XCELERA ---
[id number] \\[id number]
[2019-05-05] MEDS: HEPARIN SODIUM/DEXTROSE 25,000 UNITS/500 ML BAG IV SCH (13:24)
[2019-05-05] MEDS: Heparin IV Standard *NO* Bolus IV SCH ×3 (13:24→14:50)
[2019-05-05 13:38] LABS: Troponin I 0.183 ng/ml (0-0.045)
[2019-05-05 13:47] LABS: Estimated Average Glucose 252 mg/dl; Hemoglobin A1C 10.4 % (4.5-5.6)
[2019-05-05] MEDS ORDERED: HEPARIN SOD 5,000 UNIT/0.5 ML VIAL SQ SCH (14:00)
[2019-05-05] MEDS ORDERED: INSULIN LISPRO 9 UNIT SQ SCH (14:00)
--- NOTE | 2019-05-05 16:25 | Electrocardiogram Report ---
Test Reason : Blood Pressure : / mmHG Vent. 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
--- NOTE | 2019-05-05 16:25 | Electrocardiogram Report ---
Test Reason : Blood Pressure : / mmHG Vent. 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
[2019-05-05] MEDS: FAMOTIDINE 10 MG TABLET PO SCH (16:45)
[2019-05-05] MEDS: OMEGA-3 (PURIFIED FISH OIL) 1 GM CAP PO SCH (16:45)
[2019-05-05 20:15] LABS: Creatine Kinase MB 1.2 ng/ml (0.5-3.6); Troponin I 0.223 ng/ml (0-0.045)
[2019-05-05] MEDS: METOPROLOL SUCC 50MG EXT REL TAB PO SCH (20:36)
[2019-05-05] MEDS: ASPIRIN 81 MG ECTAB PO SCH (20:36)
[2019-05-05] MEDS: ROSUVASTATIN CALCIUM 20 MG TAB PO SCH (20:36)
[2019-05-06] MEDS: SODIUM CHLORIDE 0.9% 1000ML 1,000 ML IV SCH (00:58)
[2019-05-06] MEDS: LEVOTHYROXINE SODIUM 50 MCG TABLET PO SCH (05:33)
[2019-05-06 06:12] LABS: Basophils # (auto) 0.01 K/uL (0-0.2); Basophils % (auto) 0.1 %; Eosinophils # (auto) 0.11 K/uL (0-0.5); Eosinophils % (auto) 1.3 %; Hematocrit (blood only) 28.5 % (37-47); Hemoglobin 9.1 g/dL (12.0-16.0); Immature Granulocytes # (auto) 0.03 K/uL (0.00-0.02); Immature Granulocytes % (auto) 0.3 %; Lymphocytes # (auto) 2.36 K/uL (1.2-3.4); Lymphocytes % (auto) 27.2 %; Mean Corpuscular Hemoglobin 29.3 pg (25-34); Mean Corpuscular Hgb Conc 31.9 g/dL (32-36); Mean Corpuscular Volume 91.6 fL (80-100); Mean Platelet Volume 10.7 fL (7.4-10.4); Monocytes # (auto) 0.91 K/uL (0.11-0.59); Monocytes % (auto) 10.5 %; Neutrophils # (auto) 5.27 K/uL (1.4-6.5); Neutrophils % (auto) 60.6 %; Platelet Count 171 K/uL (130-400); RDW Coefficient of Variation 13.5 % (11.5-14.5); RDW Standard Deviation 45.2 fL (36.4-46.3); Red Blood Count 3.11 M/uL (4.2-5.4); White Blood Count 8.69 K/uL (4.8-10.8)
[2019-05-06 06:37] LABS: Partial Thromboplastin Ratio 3.7
[2019-05-06 06:38] LABS: BUN Creatinine Ratio 17.9 (10-20); Calcium 8.5 mg/dl (8.5-10.1); Creatinine Clr Calc Pharmacy 17.9 ml/min; Est GFR (African American) 19.5; Est GFR (Non-African American) 16.8
[2019-05-06 06:46] LABS: Partial Thromboplastin Time 103.5 Seconds (21.0-31.0)
[2019-05-06 06:49] LABS: Beta-Hydroxybutyrate 4.2 mg/dl (0.2-2.81)
[2019-05-06] MEDS: FUROSEMIDE 20 MG TAB PO SCH (08:57)
[2019-05-06] MEDS: AMLODIPINE BESYLATE 5 MG TAB PO SCH (08:57)
[2019-05-06] MEDS: OMEGA-3 (PURIFIED FISH OIL) 1 GM CAP PO SCH ×2 (08:57→16:55)
[2019-05-06] MEDS: RANOLAZINE 500 MG ER TAB PO SCH ×2 (08:57→21:23)
[2019-05-06] MEDS: INSULIN GLARGINE SOLOSTAR 100 UNITS/ML 3 ML PEN SQ SCH ×2 (08:58→21:22)
[2019-05-06] MEDS: FAMOTIDINE 10 MG TABLET PO SCH ×2 (08:58→16:55)
[2019-05-06] MEDS: INSULIN ASPART 100 UNITS/ML 3 ML PEN SC SCH ×4 (08:58→21:22)
[2019-05-06] MEDS ORDERED: INSULIN GLARGINE SOLOSTAR 100 UNITS/ML 3 ML PEN SQ SCH (09:00)
--- NOTE | 2019-05-06 11:37 | Cardiology Progress Note ---
Date of Service May 06, 2019 Assessment & Plan (1) Chest pain: Her symptoms likely result from an acute coronary syndrome, unstable angina. The nature of her prior interventions is not documented in her current record. My attempts to obtain her records from her physician's office have been unsuccessful as it is currently closed. I had several discussions with the patient regarding options for evaluation and treatment. Generally speaking cardiac catheterization would be the preferred evaluation and percutaneous intervention the preferred treatment for unstable angina. However, given her renal dysfunction she is at significant risk of contrast nephropathy. Her renal function is slightly worse today. She does appear to have an element of proteinuria in the setting of diabetes which also puts her at higher risk. She asked me to contact her touch up painter's which I have attempted to do. However, he is also out of the office for a few days. The main concern is the risk of renal failure and the need for dialysis. She has stated emphatically that she does not want dialysis. Therefore, in the setting of renal failure from contrast nephropathy she has a risk of . He would be possible to treat her with medical therapy such as heparin for another 24 hours and continued use of Plavix. (2) CAD (coronary artery disease): She has previously undergone surgical and percutaneous intervention. We do not have any records of the interventions performed or her coronary anatomy. Continue aspirin, Plavix, rosuvastatin and ranolazine. She cannot recall why she was placed on ranolazine. She cannot recall symptoms of chest discomfort prior to her current admission. (3) Mitral stenosis: She has moderate mitral stenosis on her echocardiogram. 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 No old records for comparison. (5) Anemia: Her hemoglobin did drop after admission. Unclear if this is entirely dilutional. Given our use of anticoagulants and anti-platelet agents there is some concern regarding bleeding. No obvious bleeding on examination today. Will continue cautiously. Admission and Anticipated Discharge Date Admission Date: May 06, 2019 Subjective This morning patient claims feeling tired. She did not report any additional episodes of left arm, chest or jaw discomfort. She was ambulatory to the bathroom and back without the symptoms. She did report some mild dyspnea. No dizziness. No palpitations. Review of Systems Review of Systems: Per HPI Physical Exam Physical Exam: She is alert and oriented x3. Mood affect appear normal. She answered all questions appropriately. HEENT: Sclerae are anicteric. Pupils are equal and reactive to light and accommodation. Extraocular movements were intact. Neuro: Cranial nerves intact Lungs: Lungs are clear to auscultation bilaterally. There are no rales wheezes or rhonchi. She has normal respiratory effort without use of accessory muscles. There is normal pulmonary excursion. Cardiac: The rhythm was regular. S1 and S2 were normal. Holosystolic murmur. The PMI was not markedly displaced on palpation. Extremities: Patient has bilateral radial pulses that are equal in intensity. There is no evidence cyanosis or clubbing. There was no evidence of significant peripheral edema bilaterally, just trace. Skin: There are no rashes noted on examination today. Results & Data ([facility]) Vital Signs (Past 12 Hours) Vital Signs Temp Pulse Pulse Resp BP Pulse Ox 05/06/19 11:30 37.3 C 63 18 104/57 L 99 05/06/19 07:35 37.1 C 70 19 86/54 L 93 05/06/19 03:56 37.5 C 85 18 103/67 93 05/06/19 00:15 79 05/05/19 23:50 37 C 81 17 124/65 94 Laboratory Results Abnormal Lab Results 05/05/19 05/05/19 05/05/19 12:03 12:48 12:48 WBC RBC Hgb Hct MCV MCH MCHC RDW Std Deviation RDW Coeff of Shelli Plt Count MPV Immature Gran % (Auto) Neut % (Auto) Lymph % (Auto) [place] % (Auto) Eos % (Auto) Baso % (Auto) Immature Gran # (Auto) Neut # (Auto) Lymph # (Auto) [place] # (Auto) Eos # (Auto) Baso # (Auto) APTT PTT Ratio Sodium Potassium Chloride Carbon Dioxide Anion Gap BUN Creatinine Est Cr Clr Drug Dosing Est GFR ( Amer) Est GFR (Non-Af Amer) BUN/Creatinine Ratio Glucose POC Glucose 278 H Estimat Average Glucose 252 Hemoglobin A1c 10.4 H Calcium Total Creatine Kinase 33 CK-MB (CK-2) 1.0 CK/CKMB % Calc 3.0 Troponin I 0.183 H* Beta-Hydroxybutyric Acd 05/05/19 05/05/19 05/05/19 16:16 19:09 19:09 WBC RBC Hgb Hct MCV MCH MCHC RDW Std Deviation RDW Coeff of Shelli Plt Count MPV Immature Gran % (Auto) Neut % (Auto) Lymph % (Auto) [place] % (Auto) Eos % (Auto) Baso % (Auto) Immature Gran # (Auto) Neut # (Auto) Lymph # (Auto) [place] # (Auto) Eos # (Auto) Baso # (Auto) APTT 56.0 H* PTT Ratio 2.0 Sodium Potassium Chloride Carbon Dioxide Anion Gap BUN Creatinine Est Cr Clr Drug Dosing Est GFR ( Amer) Est GFR (Non-Af Amer) BUN/Creatinine Ratio Glucose POC Glucose 302 H* Estimat Average Glucose Hemoglobin A1c Calcium Total Creatine Kinase 39 CK-MB (CK-2) 1.2 CK/CKMB % Calc 3.1 H Troponin I 0.223 H* Beta-Hydroxybutyric Acd 05/05/19 05/06/19 05/06/19 20:11 05:42 05:42 WBC 8.69 RBC 3.11 L Hgb 9.1 L Hct 28.5 L MCV 91.6 MCH 29.3 MCHC 31.9 L RDW Std Deviation 45.2 RDW Coeff of Shelli 13.5 Plt Count 171 MPV 10.7 H Immature Gran % (Auto) 0.3 Neut % (Auto) 60.6 Lymph % (Auto) 27.2 [place] % (Auto) 10.5 Eos % (Auto) 1.3 Baso % (Auto) 0.1 Immature Gran # (Auto) 0.03 H Neut # (Auto) 5.27 Lymph # (Auto) 2.36 [place] # (Auto) 0.91 H Eos # (Auto) 0.11 Baso # (Auto) 0.01 APTT PTT Ratio Sodium 134 L Potassium 5.0 Chloride 103 Carbon Dioxide 24 Anion Gap 7.0 BUN 47 H Creatinine 2.62 H D Est Cr Clr Drug Dosing 17.9 Est GFR ( Amer) 19.5 Est GFR (Non-Af Amer) 16.8 BUN/Creatinine Ratio 17.9 Glucose 304 H* POC Glucose 151 H Estimat Average Glucose Hemoglobin A1c Calcium 8.5 Total Creatine Kinase CK-MB (CK-2) CK/CKMB % Calc Troponin I Beta-Hydroxybutyric Acd 4.20 H 05/06/19 05/06/19 05/06/19 05:42 07:37 07:38 WBC RBC Hgb Hct MCV MCH MCHC RDW Std Deviation RDW Coeff of Shelli Plt Count MPV Immature Gran % (Auto) Neut % (Auto) Lymph % (Auto) [place] % (Auto) Eos % (Auto) Baso % (Auto) Immature Gran # (Auto) Neut # (Auto) Lymph # (Auto) [place] # (Auto) Eos # (Auto) Baso # (Auto) APTT 103.5 H* PTT Ratio 3.7 Sodium Potassium Chloride Carbon Dioxide Anion Gap BUN Creatinine Est Cr Clr Drug Dosing Est GFR ( Amer) Est GFR (Non-Af Amer) BUN/Creatinine Ratio Glucose POC Glucose 309 H* 293 H Estimat Average Glucose Hemoglobin A1c Calcium Total Creatine Kinase CK-MB (CK-2) CK/CKMB % Calc Troponin I Beta-Hydroxybutyric Acd 05/06/19 09:32 WBC RBC Hgb Hct MCV MCH MCHC RDW Std Deviation RDW Coeff of Shelli Plt Count MPV Immature Gran % (Auto) Neut % (Auto) Lymph % (Auto) [place] % (Auto) Eos % (Auto) Baso % (Auto) Immature Gran # (Auto) Neut # (Auto) Lymph # (Auto) [place] # (Auto) Eos # (Auto) Baso # (Auto) APTT PTT Ratio Sodium Potassium Chloride Carbon Dioxide Anion Gap BUN Creatinine Est Cr Clr Drug Dosing Est GFR ( Amer) Est GFR (Non-Af Amer) BUN/Creatinine Ratio Glucose POC Glucose Estimat Average Glucose Hemoglobin A1c Calcium Total Creatine Kinase CK-MB (CK-2) CK/CKMB % Calc Troponin I 0.373 H* Beta-Hydroxybutyric Acd PG Care Time/CCT Total # of Minutes Spent Total Time Spent with Patient: Total time spent is greater than 50% in coordination of care (as documented) at patient's floor/unit and/or counseling patient: Coding Level of Care Code 25099 Subseq Hosp Care Lvl 3 Diagnoses Chest pain R07.9 Chest pain type: unspecified CAD (coronary artery disease) I25.10 Associated angina: angina presence unspecified Coronary Disease-Associated Artery/Lesion type: unspecified vessel or lesion type [place] vs. transplanted heart: [place] heart Mitral stenosis I05.0 Ventricular aneurysm I25.3 Anemia D64.9 (1) Chest pain Chest pain type: unspecified Qualified Code(s): R07.9 - Chest pain, unspecified (2) CAD (coronary artery disease) Associated angina: angina presence unspecified Coronary Disease-Associated Artery/Lesion type: unspecified vessel or lesion type [place] vs. transplanted heart: [place] heart Qualified Code(s): I25.10 - Atherosclerotic heart disease of [place] coronary artery without angina pectoris
[2019-05-06] MEDS: HEPARIN SODIUM/DEXTROSE 25,000 UNITS/500 ML BAG IV SCH (12:48)
[2019-05-06 14:15] LABS: Hematocrit (blood only) 30.1 % (37-47); Hemoglobin 9.7 g/dL (12.0-16.0)
[2019-05-06 14:27] LABS: Creatinine Clr Calc Pharmacy 18.3 ml/min; Est GFR (African American) 20.1; Est GFR (Non-African American) 17.3
--- NOTE | 2019-05-06 14:30 | Electrocardiogram Report ---
Test Reason : Blood Pressure : / mmHG Vent. 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 lead placement vs. LVH Abnormal ECG When compared with ECG of 05-MAY-2019 08:25, Vent. rate has increased BY 32 BPM QRS duration has decreased Confirmed by Danilo Echavarria ([id number]) on 05/06/2019 2:29:58 PM Referred By: REFERRED SELF Confirmed By:Ry Echavarria
[2019-05-06 14:50] LABS: Partial Thromboplastin Ratio 1.8
[2019-05-06 15:22] LABS: Partial Thromboplastin Time 50.7 Seconds (21.0-31.0)
[2019-05-06] MEDS ORDERED: CLOPIDOGREL BISULFATE 75 MG TAB PO ONE (17:28)
--- NOTE | 2019-05-06 20:02 | Hospitalist Progress Note ---
Date of Service May 06, 2019 Assessment & Plan (1) NSTEMI (non-ST elevated myocardial infarction): Mild troponin elevation, symptoms at presentation, and known CAD with remote CABG all concerning for mild NSTEMI. Spoke with Dr Echavarria today - plan is for conservative Rx at this time rather than cardiac cath (largest risk is kidney injury from contrast load during cath in the setting of CKD stage 4). Cont heparin x 48 hrs (stop tomorrow). cont BB, ranexa. hold ARB due to mild rise in creatinine overnight. asa, plavix, statin. (2) CAD (coronary artery disease): s/p CABG 20+ years ago. now with probable mild NSTEMI. conservative Rx for now. deferring on cath. heparin x 48 hours. appreciate cardiology assistance. (3) Hypertension: controlled. hold ARB for now due to rise in creatinine overnight. 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 she got off phone - offered no complaints. just tired. denied any cp or dyspnea. tele overnight wnl. expressed sadness that she couldn't have visitors because of COVID-19. hasn't been out of bed much. Review of Systems Respiratory: no cough, no dyspnea and no dyspnea on exertion Cardiovascular: no chest pain Gastrointestinal: no abdominal pain, no nausea and no vomiting Physical Exam Constitutional: well developed and well nourished; no acute distress and no altered mental status ENMT: external ear and nose normal, oropharynx normal Respiratory: normal respiratory effort, lungs clear to auscultation Cardiovascular: Rate/Rhythm: regular rate and regular rhythm Heart Sounds: normal S1, normal S2 and + murmur (2/6 LLSB) Vessels: posterior tibial pulses present and dorsalis pedis pulses present; no JVD Extremities: no edema Gastrointestinal (Abdomen): normal bowel sounds, soft, nontender, no hepatosplenomegaly Psychiatric: Orientation: alert and oriented x 3 Results & Data ([facility]) Vital Signs (Past 12 Hours) Vital Signs Temp Pulse Resp BP BP Pulse Ox 05/06/19 19:49 36.7 C 61 19 129/73 96 05/06/19 15:32 36.7 C 74 20 164/72 H 98 05/06/19 11:30 37.3 C 63 18 104/57 L 99 Laboratory Results Laboratory Results - last 24 hr 05/05/19 05/05/19 05/06/19 19:09 20:11 05:42 WBC 8.69 RBC 3.11 L Hgb 9.1 L Hct 28.5 L MCV 91.6 MCH 29.3 MCHC 31.9 L RDW Std Deviation 45.2 RDW Coeff of [place]lli 13.5 Plt Count 171 MPV 10.7 H Immature Gran % (Auto) 0.3 Neut % (Auto) 60.6 Lymph % (Auto) 27.2 [place] % (Auto) 10.5 Eos % (Auto) 1.3 Baso % (Auto) 0.1 Immature Gran # (Auto) 0.03 H Neut # (Auto) 5.27 Lymph # (Auto) 2.36 [place] # (Auto) 0.91 H Eos # (Auto) 0.11 Baso # (Auto) 0.01 APTT PTT Ratio Sodium Potassium Chloride Carbon Dioxide Anion Gap BUN Creatinine Est Cr Clr Drug Dosing Est GFR ( Amer) Est GFR (Non-Af Amer) BUN/Creatinine Ratio Glucose POC Glucose 151 H Calcium Total Creatine Kinase 39 CK-MB (CK-2) 1.2 CK/CKMB % Calc 3.1 H Troponin I 0.223 H* Beta-Hydroxybutyric Acd 05/06/19 05/06/19 05/06/19 05:42 05:42 07:37 WBC RBC Hgb Hct MCV MCH MCHC RDW Std Deviation RDW Coeff of Shelli Plt Count MPV Immature Gran % (Auto) Neut % (Auto) Lymph % (Auto) [place] % (Auto) Eos % (Auto) Baso % (Auto) Immature Gran # (Auto) Neut # (Auto) Lymph # (Auto) [place] # (Auto) Eos # (Auto) Baso # (Auto) APTT 103.5 H* PTT Ratio 3.7 Sodium 134 L Potassium 5.0 Chloride 103 Carbon Dioxide 24 Anion Gap 7.0 BUN 47 H Creatinine 2.62 H D Est Cr Clr Drug Dosing 17.9 Est GFR ( Amer) 19.5 Est GFR (Non-Af Amer) 16.8 BUN/Creatinine Ratio 17.9 Glucose 304 H* POC Glucose 309 H* Calcium 8.5 Total Creatine Kinase CK-MB (CK-2) CK/CKMB % Calc Troponin I Beta-Hydroxybutyric Acd 4.20 H 05/06/19 05/06/19 05/06/19 07:38 09:32 11:31 WBC RBC Hgb Hct MCV MCH MCHC RDW Std Deviation RDW Coeff of Shelli Plt Count MPV Immature Gran % (Auto) Neut % (Auto) Lymph % (Auto) [place] % (Auto) Eos % (Auto) Baso % (Auto) Immature Gran # (Auto) Neut # (Auto) Lymph # (Auto) [place] # (Auto) Eos # (Auto) Baso # (Auto) APTT PTT Ratio Sodium Potassium Chloride Carbon Dioxide Anion Gap BUN Creatinine Est Cr Clr Drug Dosing Est GFR ( Amer) Est GFR (Non-Af Amer) BUN/Creatinine Ratio Glucose POC Glucose 293 H 188 H Calcium Total Creatine Kinase CK-MB (CK-2) CK/CKMB % Calc Troponin I 0.373 H* Beta-Hydroxybutyric Acd 05/06/19 05/06/19 05/06/19 14:04 14:04 14:17 WBC RBC Hgb 9.7 L Hct 30.1 L MCV MCH MCHC RDW Std Deviation RDW Coeff of Shelli Plt Count MPV Immature Gran % (Auto) Neut % (Auto) Lymph % (Auto) [place] % (Auto) Eos % (Auto) Baso % (Auto) Immature Gran # (Auto) Neut # (Auto) Lymph # (Auto) [place] # (Auto) Eos # (Auto) Baso # (Auto) APTT 50.7 H* PTT Ratio 1.8 Sodium Potassium Chloride Carbon Dioxide Anion Gap BUN Creatinine 2.56 H Est Cr Clr Drug Dosing 18.3 Est GFR ( Amer) 20.1 Est GFR (Non-Af Amer) 17.3 BUN/Creatinine Ratio Glucose POC Glucose Calcium Total Creatine Kinase CK-MB (CK-2) CK/CKMB % Calc Troponin I Beta-Hydroxybutyric Acd 05/06/19 16:02 WBC RBC Hgb Hct MCV MCH MCHC RDW Std Deviation RDW Coeff of Shelli Plt Count MPV Immature Gran % (Auto) Neut % (Auto) Lymph % (Auto) [place] % (Auto) Eos % (Auto) Baso % (Auto) Immature Gran # (Auto) Neut # (Auto) Lymph # (Auto) [place] # (Auto) Eos # (Auto) Baso # (Auto) APTT PTT Ratio Sodium Potassium Chloride Carbon Dioxide Anion Gap BUN Creatinine Est Cr Clr Drug Dosing Est GFR ( Amer) Est GFR (Non-Af Amer) BUN/Creatinine Ratio Glucose POC Glucose 115 H Calcium Total Creatine Kinase CK-MB (CK-2) CK/CKMB % Calc Troponin I Beta-Hydroxybutyric Acd PG Care Time/CCT Total # of Minutes Spent Total Time Spent with Patient: Total time spent is greater than 50% in coordination of care (as documented) at patient's floor/unit and/or counseling patient: Coding Level of Care Code 96512 Subseq Hosp Care Lvl 3 Diagnoses NSTEMI (non-ST elevated myocardial infarction) I21.4 CAD (coronary artery disease) I25.10 Associated angina: angina presence unspecified Coronary Disease-Associated Artery/Lesion type: unspecified vessel or lesion type [place] vs. transplanted heart: [place] heart Hypertension I10 Type 2 diabetes mellitus with complications E11.8 GERD without esophagitis K21.9 Chronic kidney disease, stage IV (severe) N18.4 Anemia D64.9 Hypothyroidism E03.9 Hyperlipidemia E78.5 Ventricular aneurysm I25.3 DVT prophylaxis Z29.9 (1) CAD (coronary artery disease) Associated angina: angina presence unspecified Coronary Disease-Associated Artery/Lesion type: unspecified vessel or lesion type [place] vs. transplanted heart: [place] heart Qualified Code(s): I25.10 - Atherosclerotic heart disease of [place] coronary artery without angina pectoris
[2019-05-06] MEDS: ASPIRIN 81 MG ECTAB PO SCH (21:22)
[2019-05-06] MEDS: METOPROLOL SUCC 50MG EXT REL TAB PO SCH (21:23)
[2019-05-06] MEDS: ROSUVASTATIN CALCIUM 20 MG TAB PO SCH (21:24)
[2019-05-07 05:42] LABS: Hematocrit (blood only) 29.7 % (37-47); Hemoglobin 9.8 g/dL (12.0-16.0); Mean Corpuscular Hemoglobin 29.7 pg (25-34); Mean Platelet Volume 10.2 fL (7.4-10.4); Platelet Count 182 K/uL (130-400); RDW Coefficient of Variation 13.4 % (11.5-14.5); RDW Standard Deviation 44.1 fL (36.4-46.3)
[2019-05-07 06:09] LABS: BUN Creatinine Ratio 17.9 (10-20); Calcium 9.2 mg/dl (8.5-10.1); Creatinine Clr Calc Pharmacy 17.3 ml/min; Est GFR (African American) 18.5; Est GFR (Non-African American) 15.9; Potassium 4.9 mmol/L (3.5-5.1)
[2019-05-07 06:18] LABS: Troponin I 0.502 ng/ml (0-0.045)
[2019-05-07] MEDS: LEVOTHYROXINE SODIUM 50 MCG TABLET PO SCH (06:41)
[2019-05-07 07:54] LABS: Partial Thromboplastin Ratio 2.2
[2019-05-07 07:57] LABS: Partial Thromboplastin Time 62.5 Seconds (21.0-31.0)
[2019-05-07] MEDS: INSULIN GLARGINE SOLOSTAR 100 UNITS/ML 3 ML PEN SQ SCH (08:06)
[2019-05-07] MEDS: INSULIN ASPART 100 UNITS/ML 3 ML PEN SC SCH ×4 (08:07→21:01)
[2019-05-07] MEDS: OMEGA-3 (PURIFIED FISH OIL) 1 GM CAP PO SCH ×2 (08:08→16:51)
[2019-05-07] MEDS: AMLODIPINE BESYLATE 5 MG TAB PO SCH (08:08)
[2019-05-07] MEDS: FAMOTIDINE 10 MG TABLET PO SCH ×2 (08:09→16:51)
[2019-05-07] MEDS: CLOPIDOGREL BISULFATE 75 MG TAB PO SCH (08:09)
[2019-05-07] MEDS: FUROSEMIDE 20 MG TAB PO SCH (08:09)
[2019-05-07] MEDS: RANOLAZINE 500 MG ER TAB PO SCH ×2 (08:13→21:03)
--- NOTE | 2019-05-07 11:31 | Cardiology Progress Note ---
Date of Service May 07, 2019 Assessment & Plan (1) Chest pain: Patient appears to have unstable angina. He had been on heparin for nearly 48 hours. We started Plavix daily. Will continue on aspirin therapy as well. 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 She is certainly at risk of contrast nephropathy. Given her reluctance to consider dialysis this places her at high risk of serious complication from angiography. Therefore, think we will try to treat her more conservatively. Will continue medical therapy. We will have her ambulate. We can consider perfusion imaging prior to discharge. If jackie mcdaniel has recurrent symptoms or evidence of recurrent ischemia with more activity, perhaps re-evaluation will be necessary. (2) CAD (coronary artery disease): She has previously undergone surgical and percutaneous intervention. We do not have any records of the interventions performed or her coronary anatomy. Continue aspirin, Plavix, rosuvastatin and ranolazine. She cannot recall why she was placed on ranolazine. She cannot recall symptoms of chest discomfort prior to her current admission. (3) Mitral stenosis: She has moderate mitral stenosis on her echocardiogram. 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 No old records for comparison. (5) Anemia: Hemoglobin dropped after admission. Stable. No clinical evidence of bleeding. Admission and Anticipated Discharge Date Admission Date: May 06, 2019 Subjective This morning patient claims to be feeling well. She has not report any recurrence of her index symptoms. No symptoms of chest discomfort. She has been ambulatory around her room without recurrent symptoms. No breathing difficulty. No dizziness or lightheadedness. No sense of palpitation. Review of Systems Review of Systems: The per HPI Physical Exam Physical Exam: She is alert and oriented x3. Mood affect appear normal. She answered all questions appropriately. HEENT: Sclerae are anicteric. Pupils are equal and reactive to light and accommodation. Extraocular movements were intact. Neuro: Cranial nerves intact Lungs: Lungs are clear to auscultation bilaterally. There are no rales wheezes or rhonchi. She has normal respiratory effort without use of accessory muscles. There is normal pulmonary excursion. Cardiac: The rhythm was regular. S1 and S2 were normal. Holosystolic murmur. The PMI was not markedly displaced on palpation. Extremities: Patient has bilateral radial pulses that are equal in intensity. There is no evidence cyanosis or clubbing. There was no evidence of significant peripheral edema bilaterally. Skin: There are no rashes noted on examination today. Results & Data ([facility]) Vital Signs (Past 12 Hours) Vital Signs Temp Pulse Resp BP BP Pulse Ox 05/07/19 10:56 36.8 C 62 17 102/63 97 05/07/19 07:26 37.0 C 66 17 107/56 L 96 05/07/19 03:01 37.1 C 65 18 120/72 96 05/07/19 00:05 36.9 C 68 17 103/63 97 Laboratory Results Abnormal Lab Results 05/06/19 05/06/19 05/06/19 14:04 14:04 14:17 WBC RBC Hgb 9.7 L Hct 30.1 L MCV MCH MCHC RDW Std Deviation RDW Coeff of Shelli Plt Count MPV APTT 50.7 H* PTT Ratio 1.8 Sodium Potassium Chloride Carbon Dioxide Anion Gap BUN Creatinine 2.56 H Est Cr Clr Drug Dosing 18.3 Est GFR ( Amer) 20.1 Est GFR (Non-Af Amer) 17.3 BUN/Creatinine Ratio Glucose POC Glucose Calcium Troponin I Triglycerides Cholesterol LDL Cholesterol, Calc VLDL Cholesterol, Calc HDL Cholesterol Cholesterol/HDL Ratio 05/06/19 05/06/19 05/07/19 16:02 20:04 05:27 WBC RBC Hgb Hct MCV MCH MCHC RDW Std Deviation RDW Coeff of Shelli Plt Count MPV APTT PTT Ratio Sodium 133 L Potassium 4.9 Chloride 103 Carbon Dioxide 25 Anion Gap 5.0 BUN 49 H Creatinine 2.74 H Est Cr Clr Drug Dosing 17.3 Est GFR ( Amer) 18.5 Est GFR (Non-Af Amer) 15.9 BUN/Creatinine Ratio 17.9 Glucose 160 H POC Glucose 115 H 132 H Calcium 9.2 Troponin I 0.502 H* Triglycerides 96 Cholesterol 147 LDL Cholesterol, Calc 69 VLDL Cholesterol, Calc 19 HDL Cholesterol 59 Cholesterol/HDL Ratio 3 05/07/19 05/07/19 05/07/19 05:27 07:22 07:24 WBC 10.70 RBC 3.30 L Hgb 9.8 L Hct 29.7 L MCV 90.0 MCH 29.7 MCHC 33.0 RDW Std Deviation 44.1 RDW Coeff of Shelli 13.4 Plt Count 182 MPV 10.2 APTT 62.5 H* PTT Ratio 2.2 Sodium Potassium Chloride Carbon Dioxide Anion Gap BUN Creatinine Est Cr Clr Drug Dosing Est GFR ( Amer) Est GFR (Non-Af Amer) BUN/Creatinine Ratio Glucose POC Glucose 176 H Calcium Troponin I Triglycerides Cholesterol LDL Cholesterol, Calc VLDL Cholesterol, Calc HDL Cholesterol Cholesterol/HDL Ratio 05/07/19 11:35 WBC RBC Hgb Hct MCV MCH MCHC RDW Std Deviation RDW Coeff of Shelli Plt Count MPV APTT PTT Ratio Sodium Potassium Chloride Carbon Dioxide Anion Gap BUN Creatinine Est Cr Clr Drug Dosing Est GFR ( Amer) Est GFR (Non-Af Amer) BUN/Creatinine Ratio Glucose POC Glucose 210 H Calcium Troponin I Triglycerides Cholesterol LDL Cholesterol, Calc VLDL Cholesterol, Calc HDL Cholesterol Cholesterol/HDL Ratio PG Care Time/CCT Total # of Minutes Spent Total Time Spent with Patient: Total time spent is greater than 50% in coordination of care (as documented) at patient's floor/unit and/or counseling patient: Coding Level of Care Code 05063 Subseq Hosp Care Lvl 3 Diagnoses Chest pain R07.9 Chest pain type: unspecified CAD (coronary artery disease) I25.10 Associated angina: angina presence unspecified Coronary Disease-Associated Artery/Lesion type: unspecified vessel or lesion type [place] vs. transplanted heart: [place] heart Mitral stenosis I05.0 Ventricular aneurysm I25.3 Anemia D64.9 (1) Chest pain Chest pain type: unspecified Qualified Code(s): R07.9 - Chest pain, unspecified (2) CAD (coronary artery disease) Associated angina: angina presence unspecified Coronary Disease-Associated Artery/Lesion type: unspecified vessel or lesion type [place] vs. transplanted heart: [place] heart Qualified Code(s): I25.10 - Atherosclerotic heart disease of [place] coronary artery without angina pectoris
--- NOTE | 2019-05-07 11:42 | Family Medicine Progress Note ---
Date of Service May 07, 2019 Assessment & Plan (1) NSTEMI (non-ST elevated myocardial infarction): Mrs Nash is a 78 year old female with history significant for CAD s/p 4 vessel CABG, HTN, DM with complications including retinopathy, nephropathy, and cardiomyopathy, CKD 1) NSTEMI (non-ST elevated myocardial infarction): Mild troponin elevation, symptoms at presentation, and known CAD with remote CABG all concerning for mild NSTEMI. Continue with medical management in the setting of CKD Stage 4 given the risk for kidney injury from contrast load during cath is quite high and patient does not want dialysis, even temporarily. Plan to stop heparin this afternoon (will have received heparin x 48 hours) continue metoprolol, ranexa, rosuvastatin, ASA and plavix. Holding Losartan in the setting of her increased Cr and decreased eGFR. Appreciate cardiology recommendations 2) CAD (coronary artery disease): s/p CABG 20+ years ago. now with mild NSTEMI. see above 3) Hypertension: controlled. Continue with home metoprolol, holding losartan given increasing Cr 4) Type 2 diabetes mellitus with complications: uncontrolled Hemoglobin A1C 10.4 on May 04 Continue basal (20U BID)/bolus (lantus and novolog( appreciate DM educator consult/recs 5) GERD without esophagitis: continue H2 [place] 6) Chronic kidney disease, stage IV (severe): at baseline now with mild Cr rise and decrease in eGFR since admission follows with nephrology as an outpatient--she is quite adamant that she does not want to have to do dialysis. Continue to monitor electrolytes. 7) Anemia: 2 gram drop since admission, but coming back up, ?dilutional. Hgb 9.8. no overt GI bleeding, FOBT pending although based on history no evidence of new upper or lower GI bleed. 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 Will need close follow up with PCP, cardiology (sees Dr. Gupta as an outpatient) and nephrology. Admission and Anticipated Discharge Date Admission Date: May 06, 2019 Subjective "Doing ok" Denies any further chest pain, shortness of breath. Denies nausea, vomiting. Denies dark stool or bright red blood in the stool. Feels that she is safe to return home. Most of her limitation in activity are due to chronic back pain for which she has had two different surgeries. She was told that her back pain is due to muscle spasms. She is not able to do things quite as fast as she used to which is frustrating. She has a large family. She and her , who is now , had adopted several children in addition to their own daughters. She has many grandchildren as well as great-grandchildren. She enjoys watching her grandchildren and great-grandchildren and tells me that her family is a source of hope for her. Review of Systems Review of Systems: All systems reviewed & are unremarkable except as noted in HPI & below Physical Exam Constitutional: WD/WN, vitals as above + well hydrated; no acute distress Eyes: PERRL, conjunctivae normal, anicteric sclerae ENMT: external ear and nose normal, oropharynx normal Neck: normal visual inspection Respiratory: normal respiratory effort, lungs clear to auscultation normal respiratory effort; no respiratory distress Cardiovascular: RRR, no murmur, no edema Skin: no rashes, warm and dry Neurologic: awake; no focal motor deficits Psychiatric: sad appearing, flat affect Results & Data ([facility]) Vital Signs (Past 12 Hours) Vital Signs Temp Pulse Resp BP BP Pulse Ox 05/07/19 10:56 36.8 C 62 17 102/63 97 05/07/19 07:26 37.0 C 66 17 107/56 L 96 05/07/19 03:01 37.1 C 65 18 120/72 96 05/07/19 00:05 36.9 C 68 17 103/63 97 PG Care Time/CCT Total # of Minutes Spent Total Time Spent with Patient: Total time spent is greater than 50% in coordination of care (as documented) at patient's floor/unit and/or counseling patient: Coding Level of Care Code 42312 Subseq Hosp Care Lvl 3 Diagnoses NSTEMI (non-ST elevated myocardial infarction) I21.4
[2019-05-07] MEDS ORDERED: PHARMACY GLYCEMIC MGMT CONSULT PRN (12:01)
[2019-05-07] MEDS: HEPARIN SODIUM/DEXTROSE 25,000 UNITS/500 ML BAG IV SCH (13:23)
--- NOTE | 2019-05-07 13:40 | Pharmacy Report ---
Glycemic Control Consultation - Date of Service May 07, 2019 - Scope Scope: Glycemic Pharmacist consulted for glycemic control and to write orders per [facility] inpatient glycemic control protocol. - Objective Weight: 83.5 kg Accshilpaecks BSG (last 24hrs): 05/06/19 05/06/19 05/07/19 16:02 20:04 05:27 Glucose 160 H POC Glucose 115 H 132 H 05/07/19 05/07/19 07:24 11:35 Glucose POC Glucose 176 H 210 H Laboratory Data (last 24hrs): 05/06/19 05/07/19 14:04 05:27 Potassium 4.9 Carbon Dioxide 25 Anion Gap 5.0 Creatinine 2.56 H 2.74 H Est Cr Clr Drug Dosing 18.3 17.3 HbA1c: Hemoglobin A1c 10.4 % (4.5-5.6) H 05/05/19 12:48 - Recent Pertinent Medications Outpatient Anti-diabetic Regimen: * Lantus 14 units SQ BID * Humalog 9 units SQ TID * A1c = 10.4% on 05/05/19 (difficult to interpret secondary to chronic anemia) The patient is currently receiving: * Basal insulin: Lantus 20 units every 12 hours * Correctional Insulin: Novolog Correction per scale ACHS Goal Range: Low 120 mg/dL - High 160 mg/dL Correction Factor: 15 mg/dL/unit * Prandial insulin: Per carb ratio of 1 unit per 5 grams CHO consumed Risk Factors for Insulin Resistance: * IVF: * Heparin gtt in D5W * Diet: * T2DM - Assessment & Plan Assessment & Plan: ASSESSMENT: * 78 yo F admitted secondary to chest pain, subsequently diagnosed with NSTEMI * A1c during this admission was increased as compared to previous level in November 2018: 9.6% --> 10.4% * However, this result is likely somewhat unreliable secondary to chronic anemia * Patient missed both doses of Lantus on 05/04 * BSGs ranged 115 - 309 mg/dL yesterday, received 74 units of insulin, 40 units basal * CF and CR were tightened yesterday to account for basal deficiency secondary to missed doses * Fasting BSG this AM was 176 mg/dL, Lunchtime was 210 mg/dL, pharmacy glycemic management consult initiated at this time * Patient's Fasting BSG down quickly from 309 mg/dL on 05/05 to 176 mg/dL on 05/06 * May require decrease in basal insulin needs PLAN FOR INPATIENT GLYCEMIC CONTROL: * Basal insulin * Lantus 8 units SQ HS (for BSG < 110 mg/dL) * Lantus 14 units SQ HS (for BSG 110-180 mg/dL) * Lantus 20 units SQ HS (for BSG > 180 mg/dL) * Bolus insulin * NovoLog per scale ACHS or Q6hrs while NPO * Goal Range: Low 120 mg/dL - High 160 mg/dL * Correction Factor: 15 mg/dL/unit * Nutritional / Prandial insulin per carb ratio of 1 unit per 5 grams CHO consumed * Please note that the plan above was derived based on current level of insulin resistance and hospital stress. These recommendations are appropriate for inpatient admission only. Plan of care upon discharge will need to be reassessed to avoid potential outpatient hypo/hyperglycemia. Thank you.
--- NOTE | 2019-05-07 13:57 | Electrocardiogram Report ---
Test Reason : Blood Pressure : / mmHG Vent. Rate : 067 BPM Atrial Rate : 067 BPM P-R Int : 186 ms QRS Dur : 130 ms QT Int : 458 ms P-R-T Axes : 052 046 054 degrees QTc Int : 483 ms Normal sinus rhythm Right bundle branch block Abnormal ECG When compared with ECG of 06-MAY-2019 06:40, QT has shortened Confirmed by Danilo Echavarria ([id number]) on 05/07/2019 1:57:41 PM Referred By: REFERRED SELF Confirmed By:Ry Echavarria
[2019-05-07] MEDS ORDERED: INSULIN GLARGINE SOLOSTAR 100 UNITS/ML 3 ML PEN SQ SCH (21:00)
[2019-05-07] MEDS: ASPIRIN 81 MG ECTAB PO SCH (21:03)
[2019-05-07] MEDS: METOPROLOL SUCC 50MG EXT REL TAB PO SCH (21:04)
[2019-05-07] MEDS: ROSUVASTATIN CALCIUM 20 MG TAB PO SCH (21:04)
[2019-05-08 05:47] LABS: Basophils # (auto) 0.01 K/uL (0-0.2); Basophils % (auto) 0.1 %; Eosinophils # (auto) 0.29 K/uL (0-0.5); Eosinophils % (auto) 3.7 %; Hematocrit (blood only) 26.8 % (37-47); Hemoglobin 8.8 g/dL (12.0-16.0); Immature Granulocytes # (auto) 0.05 K/uL (0.00-0.02); Immature Granulocytes % (auto) 0.6 %; Lymphocytes # (auto) 2.78 K/uL (1.2-3.4); Lymphocytes % (auto) 35.5 %; Mean Corpuscular Hemoglobin 29.5 pg (25-34); Mean Corpuscular Hgb Conc 32.8 g/dL (32-36); Mean Corpuscular Volume 89.9 fL (80-100); Mean Platelet Volume 10.5 fL (7.4-10.4); Monocytes # (auto) 0.77 K/uL (0.11-0.59); Monocytes % (auto) 9.8 %; Neutrophils # (auto) 3.93 K/uL (1.4-6.5); Neutrophils % (auto) 50.3 %; Platelet Count 168 K/uL (130-400); RDW Coefficient of Variation 13.5 % (11.5-14.5); RDW Standard Deviation 44.6 fL (36.4-46.3); Red Blood Count 2.98 M/uL (4.2-5.4); White Blood Count 7.83 K/uL (4.8-10.8)
[2019-05-08 05:56] LABS: Partial Thromboplastin Ratio 1.1
[2019-05-08 06:19] LABS: BUN Creatinine Ratio 19.4 (10-20); Calcium 8.7 mg/dl (8.5-10.1); Creatinine Clr Calc Pharmacy 19.2 ml/min; Est GFR (African American) 20.9; Est GFR (Non-African American) 18.1; Potassium 4.4 mmol/L (3.5-5.1)
[2019-05-08] MEDS: LEVOTHYROXINE SODIUM 50 MCG TABLET PO SCH (06:36)
[2019-05-08] MEDS: INSULIN ASPART 100 UNITS/ML 3 ML PEN SC SCH ×4 (08:44→20:50)
--- NOTE | 2019-05-08 09:37 | Pharmacy Report ---
Pharmacy Glycemic Short Note 2 - Date of Service May 08, 2019 - Glycemic Short BSG Results (Last 24 hours): 05/07/19 05/07/19 05/07/19 11:35 16:04 20:21 Glucose POC Glucose 210 H 153 H 186 H 05/07/19 05/08/19 05/08/19 20:30 05:31 07:16 Glucose 85 POC Glucose 199 H 96 OUTPATIENT ANTIDIABETIC REGIMEN: * Lantus 14 units SQ BID * Humalog 9 units SQ TID * A1c = 10.4% on 05/05/19 (difficult to interpret secondary to chronic anemia) ASSESSMENT: 05/08/19: * BSGs ranging 153 - 210 mg/dL yesterday * Received 71 units of insulin total, 40 units basal * Fasting BSG today well controlled at 96 mg/dL * Patient is NPO this AM for nuclear med testing * Basal insulin to be decreased today, prandial needs may need tightened if lunch and bedtime BSG trend continue 05/07/19: * 78 yo F admitted secondary to chest pain, subsequently diagnosed with NSTEMI * A1c during this admission was increased as compared to previous level in November 2018: 9.6% --> 10.4% * However, this result is likely somewhat unreliable secondary to chronic anemia * Patient missed both doses of Lantus on 05/04 * BSGs ranged 115 - 309 mg/dL yesterday, received 74 units of insulin, 40 units basal * CF and CR were tightened yesterday to account for basal deficiency secondary to missed doses * Fasting BSG this AM was 176 mg/dL, Lunchtime was 210 mg/dL, pharmacy glycemic management consult initiated at this time * Patient's Fasting BSG down quickly from 309 mg/dL on 05/05 to 176 mg/dL on 05/06 * May require decrease in basal insulin needs PLAN FOR INPATIENT GLYCEMIC CONTROL: * Basal insulin * Lantus 10 units SQ BID (for BSG < 110 mg/dL) * Lantus 15 units SQ BID (for BSG 110 - 180 mg/dL) * Lantus 20 units SQ BID (for BSG > 180 mg/dL) * Bolus insulin * NovoLog per scale ACHS or Q6hrs while NPO * ADJUSTED: Goal Range: Low 110 mg/dL - High 140 mg/dL * Correction Factor: 15 mg/dL/unit * Nutritional / Prandial insulin per carb ratio of 1 unit per 5 grams CHO consumed PLAN FOR DISCHARGE: * Despite that HbA1c level is tough to interpret in this patient secondary to h/o anemia, it still represents uncontrolled T2DM as an outpatient. PCP note from 04/10/2019 indicates Lantus dose was just increased to 14 units BID so would hold off on further adjustments for now. Patient education and assessment of injection technique may need evaluated.
[2019-05-08] MEDS: FAMOTIDINE 10 MG TABLET PO SCH ×2 (12:12→16:42)
[2019-05-08] MEDS: FUROSEMIDE 20 MG TAB PO SCH (12:12)
[2019-05-08] MEDS: CLOPIDOGREL BISULFATE 75 MG TAB PO SCH (12:12)
[2019-05-08] MEDS: AMLODIPINE BESYLATE 5 MG TAB PO SCH (12:13)
[2019-05-08] MEDS: OMEGA-3 (PURIFIED FISH OIL) 1 GM CAP PO SCH ×2 (12:13→16:42)
[2019-05-08] MEDS: RANOLAZINE 500 MG ER TAB PO SCH ×2 (12:13→20:49)
[2019-05-08] MEDS: INSULIN GLARGINE SOLOSTAR 100 UNITS/ML 3 ML PEN SQ SCH ×2 (12:13→20:50)
--- NOTE | 2019-05-08 13:11 | Myocardial Perfusion Study ---
Date of Service May 08, 2019 Myocardial Perfusion Study k Myocardial Perfusion Study Report [place] Act 112: Negative Procedure: 1. Myocardial perfusion study performed in multiple views/images 2. Lexiscan pharmacologic stress ECG Indications: 1. NSTEMI Ordering physician: Dr. Echavarria Procedural details: For the stress portion of the study, Lexiscan 0.4 mg was intravenously administered followed by a saline flush. This was followed by 32.3 mCi of technetium 99m Cardiolite, injected at 11:15 a.m. on 05/08/2019. 30 minutes following the injection, imaging of the heart was performed in multiple projections. For the rest portion of the study, 10.2 mCi technetium 99m Cardiolite was injected intravenously at 9:30 a.m. on 05/08/2019. 1 hour following the injection, imaging of the heart was performed in the same projections. Lexiscan stress ECG: Resting ECG demonstrated: Sinus bradycardia 54 bpm. RBBB. Possible septal infarct. Maximum heart rate: 73 bpm Maximal, age-predicted heart rate: 51 % Resting blood pressure: 166/71 mmHg Maximum blood pressure: 166/[address] changes: None Arrhythmia: None Symptoms: Nausea Findings: Rotating raw imaging demonstrated no significant lung uptake. There is no significant motion artifact. Heart size appeared normal. Myocardial perfusion demonstrated a small to moderate sized area of severely reduced uptake involving the distal anteroseptum and apex, which was fixed in post stress and rest imaging, suggesting infarct. There was no significant reversible defect to suggest ischemia. Ejection fraction: Calculated EF was 83%. Visually, LV systolic function appeared normal. Wall motion: Akinesis of the distal anteroseptum and apex. Other wall motion segments appear to have normal wall motion. No significant transient ischemic dilation. Impression: 1. Negative myocardial perfusion study for significant ischemic changes. 2. Distal LAD infarct (distal anteroseptum and apex). 3. Normal LV systolic function. 4. Akinesis of the distal anteroseptum and apex. 5. Lexiscan induced nausea. 6. Nondiagnostic Lexiscan ECG. [facility] [place] Myocardial perfusion code Indication for Procedure (1) NSTEMI (non-ST elevated myocardial infarction): Procedure Code Procedure 1: Myocardial Perfusion Codes: 13310 Cardiovascular Stress Test, multiple Procedure 2: Myocardial Perfusion Codes: 61681 Cardiovascular Stress Test, supervision only Procedure 3: Myocardial Perfusion Codes: 56411 Cardiovascular Stress Test, interpretation and report
[2019-05-08] MEDS ORDERED: ONDANSETRON 4 MG OD TAB PO PRN (14:04)
[2019-05-08] MEDS ORDERED: COUGH DROP (SUGAR FREE) LOZ 24 LOZ/1 BOX BUCCAL STA (14:09)
--- NOTE | 2019-05-08 15:16 | Cardiology Progress Note ---
Date of Service May 08, 2019 Assessment & Plan (1) Chest pain: Her symptoms were consistent with unstable angina. She has done well since admission. No recurrent symptoms. We elected a conservative approach based on her degree of renal dysfunction the risks of contrast nephropathy. Her perfusion study did not reveal any large areas of ischemia or any areas of ischemia. I think this represents a low risk situation. She can be discharged on Plavix, aspirin in the remainder of her outpatient medical regimen. (2) CAD (coronary artery disease): She has previously undergone surgical and percutaneous intervention. We do not have any records of the interventions performed or her coronary anatomy. Continue aspirin, Plavix, rosuvastatin and ranolazine. (3) Mitral stenosis: She has moderate mitral stenosis on her echocardiogram. 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 No old records for comparison. This is consistent with her perfusion study performed today. (5) Anemia: Hemoglobin dropped after admission. Stable. No clinical evidence of bleeding. Admission and Anticipated Discharge Date Admission Date: May 06, 2019 Subjective This afternoon the patient had some nausea and some diffuse abdominal complaints. This seemed to start when she had her Lexiscan administered earlier today. No recurrent chest discomfort. She claims to have been ambulatory around her room without recurrent symptoms. Review of Systems Review of Systems: Per HPI Physical Exam Physical Exam: She is alert and oriented x3. Mood affect appear normal. She answered all questions appropriately. HEENT: Sclerae are anicteric. Pupils are equal and reactive to light and accommodation. Extraocular movements were intact. Neuro: Cranial nerves intact Lungs: Lungs are clear to auscultation bilaterally. There are no rales wheezes or rhonchi. She has normal respiratory effort without use of accessory muscles. There is normal pulmonary excursion. Cardiac: The rhythm was regular. S1 and S2 were normal. Holosystolic murmur. The PMI was not markedly displaced on palpation. Extremities: Patient has bilateral radial pulses that are equal in intensity. There is no evidence cyanosis or clubbing. There was no evidence of significant peripheral edema bilaterally. Skin: There are no rashes noted on examination today. Results & Data ([facility]) Vital Signs (Past 12 Hours) Vital Signs Temp Pulse Pulse Resp BP Pulse Ox 05/08/19 12:11 36.2 C L 61 18 154/74 H 100 05/08/19 07:40 36.7 C 62 20 121/75 99 05/08/19 03:49 36.6 C 58 L 20 127/72 97 Laboratory Results Abnormal Lab Results 05/07/19 05/07/19 05/07/19 15:38 16:04 20:21 WBC RBC Hgb Hct MCV MCH MCHC RDW Std Deviation RDW Coeff of Shelli Plt Count MPV Immature Gran % (Auto) Neut % (Auto) Lymph % (Auto) Branch % (Auto) Eos % (Auto) Baso % (Auto) Immature Gran # (Auto) Neut # (Auto) Lymph # (Auto) Branch # (Auto) Eos # (Auto) Baso # (Auto) APTT PTT Ratio Sodium Potassium Chloride Carbon Dioxide Anion Gap BUN Creatinine Est Cr Clr Drug Dosing Est GFR ( Amer) Est GFR (Non-Af Amer) BUN/Creatinine Ratio Glucose POC Glucose 153 H 186 H Calcium Phosphorus Troponin I 0.328 H* 05/07/19 05/08/19 05/08/19 20:30 05:31 05:31 WBC 7.83 RBC 2.98 L Hgb 8.8 L Hct 26.8 L MCV 89.9 MCH 29.5 MCHC 32.8 RDW Std Deviation 44.6 RDW Coeff of Shelli 13.5 Plt Count 168 MPV 10.5 H Immature Gran % (Auto) 0.6 Neut % (Auto) 50.3 Lymph % (Auto) 35.5 Branch % (Auto) 9.8 Eos % (Auto) 3.7 Baso % (Auto) 0.1 Immature Gran # (Auto) 0.05 H Neut # (Auto) 3.93 Lymph # (Auto) 2.78 Branch # (Auto) 0.77 H Eos # (Auto) 0.29 Baso # (Auto) 0.01 APTT 31.0 PTT Ratio 1.1 Sodium Potassium Chloride Carbon Dioxide Anion Gap BUN Creatinine Est Cr Clr Drug Dosing Est GFR ( Amer) Est GFR (Non-Af Amer) BUN/Creatinine Ratio Glucose POC Glucose 199 H Calcium Phosphorus Troponin I 05/08/19 05/08/19 05/08/19 05:31 07:16 12:10 WBC RBC Hgb Hct MCV MCH MCHC RDW Std Deviation RDW Coeff of Shelli Plt Count MPV Immature Gran % (Auto) Neut % (Auto) Lymph % (Auto) Branch % (Auto) Eos % (Auto) Baso % (Auto) Immature Gran # (Auto) Neut # (Auto) Lymph # (Auto) Branch # (Auto) Eos # (Auto) Baso # (Auto) APTT PTT Ratio Sodium 137 Potassium 4.4 Chloride 105 Carbon Dioxide 27 Anion Gap 4.0 BUN 48 H Creatinine 2.47 H Est Cr Clr Drug Dosing 19.2 Est GFR ( Amer) 20.9 Est GFR (Non-Af Amer) 18.1 BUN/Creatinine Ratio 19.4 Glucose 85 POC Glucose 96 119 H Calcium 8.7 Phosphorus 4.0 Troponin I Diagnostic Findings Cardiac perfusion study performed earlier today did reveal fixed anterior defect consistent with old myocardial infarction. No ischemia. Normal LV function on gated images. ECG Additional Comments: Normal sinus rhythm whith right bundle branch block PG Care Time/CCT Total # of Minutes Spent Total Time Spent with Patient: Total time spent is greater than 50% in coordination of care (as documented) at patient's floor/unit and/or counseling patient: Coding Level of Care Code 50167 Subseq Hosp Care Lvl 3 Diagnoses Chest pain R07.9 Chest pain type: unspecified CAD (coronary artery disease) I25.10 Associated angina: angina presence unspecified Coronary Disease-Associated Artery/Lesion type: unspecified vessel or lesion type [place] vs. transplanted heart: [place] heart Mitral stenosis I05.0 Ventricular aneurysm I25.3 Anemia D64.9 (1) Chest pain Chest pain type: unspecified Qualified Code(s): R07.9 - Chest pain, unspecified (2) CAD (coronary artery disease) Associated angina: angina presence unspecified Coronary Disease-Associated Artery/Lesion type: unspecified vessel or lesion type [place] vs. transplanted heart: [place] heart Qualified Code(s): I25.10 - Atherosclerotic heart disease of [place] coronary artery without angina pectoris
[2019-05-08 16:21] LABS: Hematocrit (blood only) 29.5 % (37-47); Hemoglobin 9.6 g/dL (12.0-16.0)
--- NOTE | 2019-05-08 18:01 | Family Medicine Progress Note ---
Date of Service May 08, 2019 Assessment & Plan (1) NSTEMI (non-ST elevated myocardial infarction): Mrs Nash is a 78 year old female with history significant for CAD s/p 4 vessel CABG, HTN, DM with complications including retinopathy, nephropathy, and cardiomyopathy, CKD 1) NSTEMI (non-ST elevated myocardial infarction): Mild troponin elevation, symptoms at presentation, and known CAD with remote CABG all concerning for mild NSTEMI. Continue with medical management in the setting of CKD Stage 4 given the risk for kidney injury from contrast load during cath is quite high and patient does not want dialysis, even temporarily. Plan to stop heparin this afternoon (will have received heparin x 48 hours) Lexiscan on 05/08/2019: - negative for significant ischemic changes, distal LAD infarct, normal LV systolic function, akinesis of distal anterospetum and apex. Lexiscan did induce nausea. continue metoprolol, ranexa, rosuvastatin, ASA and plavix. Holding Losartan in the setting of her increased Cr and decreased eGFR, but we can restart this on discharge. Appreciate cardiology recommendations 2) CAD (coronary artery disease): s/p CABG 20+ years ago. now with NSTEMI. see above 3) Hypertension: controlled. 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 - On discharge, note increased lantus to 20U BID (prior home dose was 14U BID). appreciate DM educator consult/recs 5) GERD without esophagitis: continue H2 [place] 6) Chronic kidney disease, stage IV (severe): at baseline now with mild Cr rise and decrease in eGFR since admission follows with nephrology as an outpatient--she is quite adamant that she does not want to have to do dialysis. Continue to monitor electrolytes. 7) Anemia: 2 gram drop since admission, but coming back up and now waffling between mid 8's and mid 9's. no overt GI bleeding, FOBT pending although based on history no evidence of new upper or lower GI bleed. 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 Will need close follow up with PCP, cardiology (sees Dr. Gupta as an outpatient) and nephrology. Admission and Anticipated Discharge Date Admission Date: May 06, 2019 Subjective Patient seen after her nuclear stress test this morning. Reports that she is generally feeling ok, but having some abdominal discomfort after she was given the medication for the stress test. Denies nausea or vomiting. Did ok with lunch. Reports that she has been doing a bit of ambulation around the room. Denies chest pain or dyspnea. Has not had a bowel movement, but denies blood in the toilet. Physical Exam Constitutional: WD/WN, vitals as above + well hydrated; no acute distress Eyes: PERRL, conjunctivae normal, anicteric sclerae ENMT: external ear and nose normal, oropharynx normal Neck: normal visual inspection Respiratory: normal respiratory effort, lungs clear to auscultation normal respiratory effort; no respiratory distress Cardiovascular: RRR, no murmur, no edema Skin: no rashes, warm and dry Neurologic: awake; no focal motor deficits Results & Data ([facility]) Vital Signs (Past 12 Hours) Vital Signs Temp Pulse Pulse Pulse Resp BP BP 05/08/19 15:36 65 05/08/19 15:11 36.1 C L 64 20 134/79 05/08/19 12:11 36.2 C L 61 18 154/74 H 05/08/19 07:40 36.7 C 62 20 121/75 Pulse Ox 05/08/19 15:36 05/08/19 15:11 98 05/08/19 12:11 100 05/08/19 07:40 99 PG Care Time/CCT Total # of Minutes Spent Total Time Spent with Patient: Total time spent is greater than 50% in coordination of care (as documented) at patient's floor/unit and/or counseling patient: Coding Level of Care Code 76384 Subseq Hosp Care Lvl 3 Diagnoses NSTEMI (non-ST elevated myocardial infarction) I21.4
[2019-05-08] MEDS: ASPIRIN 81 MG ECTAB PO SCH (20:48)
[2019-05-08] MEDS: METOPROLOL SUCC 50MG EXT REL TAB PO SCH (20:48)
[2019-05-08] MEDS: ROSUVASTATIN CALCIUM 20 MG TAB PO SCH (20:48)
[2019-05-09] MEDS: LEVOTHYROXINE SODIUM 50 MCG TABLET PO SCH (06:30)
[2019-05-09] MEDS: RANOLAZINE 500 MG ER TAB PO SCH (07:33)
[2019-05-09] MEDS: AMLODIPINE BESYLATE 5 MG TAB PO SCH (07:33)
[2019-05-09] MEDS: FUROSEMIDE 20 MG TAB PO SCH (07:33)
[2019-05-09] MEDS: OMEGA-3 (PURIFIED FISH OIL) 1 GM CAP PO SCH (07:34)
[2019-05-09] MEDS: CLOPIDOGREL BISULFATE 75 MG TAB PO SCH (07:34)
[2019-05-09] MEDS: FAMOTIDINE 10 MG TABLET PO SCH (07:34)
[2019-05-09] MEDS: INSULIN GLARGINE SOLOSTAR 100 UNITS/ML 3 ML PEN SQ SCH (07:35)
[2019-05-09] MEDS: INSULIN ASPART 100 UNITS/ML 3 ML PEN SC SCH ×2 (07:51→12:04)
--- NOTE | 2019-05-09 09:47 | Pharmacy Report ---
Pharmacy Glycemic Short Note 2 - Date of Service May 09, 2019 - Glycemic Short BSG Results (Last 24 hours): 05/08/19 05/08/19 05/08/19 12:10 16:15 20:03 POC Glucose 119 H 188 H 147 H 05/09/19 07:34 POC Glucose 127 H OUTPATIENT ANTIDIABETIC REGIMEN: * Lantus 14 units SQ BID * Humalog 9 units SQ TID * A1c = 10.4% on 05/05/19 (difficult to interpret secondary to chronic anemia) ASSESSMENT: 05/09/19: * BSGs ranging 96 - 188 mg/dL yesterday, received 32 units of insulin total, 15 units basal * Patient's BSGs did rise throughout the day which can be attributed to refusal of Lantus dose in AM * Fasting BSG this AM is 127 mg/dL * Received 11 units of Lantus this AM as she told the RN that's what she takes at home, outpatient records do not align with this * Was supposed to receive 15 units 05/08/19: * 78 yo F admitted secondary to chest pain, subsequently diagnosed with NSTEMI * A1c during this admission was increased as compared to previous level in November 2018: 9.6% --> 10.4% * However, this result is likely somewhat unreliable secondary to chronic anemia * BSGs ranging 153 - 210 mg/dL yesterday * Received 71 units of insulin total, 40 units basal * Fasting BSG today well controlled at 96 mg/dL * Patient is NPO this AM for nuclear med testing * Basal insulin to be decreased today, prandial needs may need tightened if lunch and bedtime BSG trend continue PLAN FOR INPATIENT GLYCEMIC CONTROL: * Basal insulin * Lantus 10 units SQ BID (for BSG < 110 mg/dL) * Lantus 15 units SQ BID (for BSG 110 mg/dL or above) * Bolus insulin * NovoLog per scale ACHS or Q6hrs while NPO * Goal Range: Low 120 mg/dL - High 160 mg/dL * Correction Factor: 15 mg/dL/unit * Nutritional / Prandial insulin per carb ratio of 1 unit per 5 grams CHO consumed PLAN FOR DISCHARGE: * Despite that HbA1c level is tough to interpret in this patient secondary to h/o anemia, it still represents uncontrolled T2DM as an outpatient. PCP note from 04/10/2019 indicates Lantus dose was just increased to 14 units BID so would hold off on further adjustments for now. Patient education and asses sment of injection technique may need evaluated.
--- NOTE | 2019-05-09 11:18 | Discharge Summary ---
Date of Service May 09, 2019 Admission HPI Per Admitting Provider Attending: Dr. Lee This is a 78-year-old female with a past medical history of CAD with four-vessel CABG, subsequent stenting, chronic anemia, hypertension, diabetes mellitus type 2 requiring insulin, elevated hemoglobin A1c of 9.6, hypertension, hyperlipidemia, hypothyroidism, CKD stage IV, diabetic retinopathy, and GERD. She states that she woke up this morning with chest pain that was intermittent. She reports that yesterday she had some confusion in the morning that was transient. She states that she had a headache at that time. This morning she states that she woke up about 530 and had chest pain rated 6 out of 10 with pain radiating into the left arm. She denied any shortness of breath. She had no increase of chest pain with ambulation this morning. The patient denies any fever or chills. No recent travel or illness. She called her daughter at home who suggested that she call 911. The patient refused. The daughter then came to the house evaluated the patient and drove her to the emergency room for further evaluation. On arrival the patient was found to have an elevated troponin of 0.099. She also had an EKG which shows new right bundle branch block as well as some J-point transition. The patient is chest point has been transient since arrival in the emergency department. She does have Nitropaste applied which seems to help. The patient currently has no pain of any sort. She has no shortness of breath. She reports no diuresis. There is no sense of impending doom. The patient has a past medical history which includes coronary artery disease with four-vessel CABG 24 years ago. Approximately 12 years ago she had cardiac catheterization with stent placement. She has had no new cardiac events over the last decade. She has no history of carotid bruits or stenosis. She has no pulmonary disease. She states that she smoked for a brief period but did not inhale. She denies tobacco abuse for the past 50 years. The patient has no thromboembolic disease history. She does have a history of breast cancer with lumpectomy greater than 10 years ago. She has no other history of malignancy. Discharge Data Consultations 05/05/19 08:20 ED Decision to Admit Stat 05/05/19 10:29 Consult Cardiology Routine Diabetes Follow Up Diabetes Follow Up: Diabetes Follow-up Needed for HgbA1c >9% Hospital Course (1) NSTEMI (non-ST elevated myocardial infarction): Mrs Nash is a 78 year old female with history significant for CAD s/p 4 vessel CABG, HTN, DM with complications including retinopathy, nephropathy, and cardiomyopathy, CKD. On day of discharge, she reports feeling well and is able to tolerate ambulation without symptoms. She reports no CHAPARRO, lightheadedness, n/v/d/c, abd pain, CP/SOB, palpitations, numbness/tingling/weakness, brusing, bleeding. On examination: GEN: AAOx3, NAD CV: S1/S2 nl RRR no MCG. trace b/l LE edema to the ankle RESP: CTAB without rales, rhonchi, wheezing Abd: NT/ND BS +ve Non-ST elevation Mycocardial Infarction w/ h/o CAD s/p CABG: managed medically in the setting of CKD IV with heparin - cardiology consultation - on discharge, continue metoprolol, ranexa, rosuvastatin, ASA and Plavix. Restarting losartan HTN - as above DMII - A1c 10.4% on 05/05/19 - increased lantus to 20U BID. Basal/bolus regimen. GERD - continue famotidine CKDIV - follow up with nephrology as routine. Patient does not want dialysis for any reason. Anemia - stable on discharge, would repeat CBC at outpatient follow up. Ventricular aneurysm - noted on echocardiogram - chronic and small, no further evaluation at this time Will need close follow up with PCP, cardiology (sees Dr. Gupta as an outpatient) and nephrology.
--- NOTE | 2019-05-09 12:15 | Cardiology Progress Note ---
Date of Service May 09, 2019 Assessment & Plan (1) Chest pain: He appears to be doing well. No recurrent symptoms. She is ambulatory without symptoms. She had a low risk stress test performed yesterday. I think she can be discharged on dual anti-platelet therapy and the remainder of her usual medical regimen. (2) CAD (coronary artery disease): No prior records of her coronary anatomy or interventions. Perfusion study yesterday demonstrated old anterior infarct and she is known to have an anterior apical aneurysm on her echocardiogram. (3) Mitral stenosis: She has moderate mitral stenosis on her echocardiogram. 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 (5) Anemia: Hemoglobin dropped after admission. Stable. No clinical evidence of bleeding. Admission and Anticipated Discharge Date Admission Date: May 06, 2019 Subjective This more the patient felt well. She has not had any recurrence of her presenti ng symptoms since admission. She is ambulatory around the grady with physical therapy earlier today and outside of some mild fatigue and dyspnea did not have any symptoms of chest pain. Review of Systems Review of Systems: Per HPI Physical Exam Physical Exam: She is alert and oriented x3. Mood affect appear normal. She answered all questions appropriately. HEENT: Sclerae are anicteric. Pupils are equal and reactive to light and accommodation. Extraocular movements were intact. Neuro: Cranial nerves intact Lungs: Lungs are clear to auscultation bilaterally. There are no rales wheezes or rhonchi. She has normal respiratory effort without use of accessory muscles. There is normal pulmonary excursion. Cardiac: The rhythm was regular. S1 and S2 were normal. Holosystolic murmur. The PMI was not markedly displaced on palpation. Extremities: Patient has bilateral radial pulses that are equal in intensity. There is no evidence cyanosis or clubbing. There was no evidence of significant peripheral edema bilaterally. Skin: There are no rashes noted on examination today. Results & Data ([facility]) Vital Signs (Past 12 Hours) Vital Signs Temp Pulse Pulse Resp BP BP Pulse Ox 05/09/19 11:54 37.3 C 63 16 149/72 H 97 05/09/19 11:40 36.7 C 76 20 154/74 H 133/71 96 05/09/19 08:53 49 L 05/09/19 07:03 36.7 C 76 20 133/71 96 05/09/19 04:00 36.8 C 62 18 116/63 97 Laboratory Results Abnormal Lab Results 05/08/19 05/08/19 05/08/19 12:10 15:48 16:15 Hgb 9.6 L Hct 29.5 L POC Glucose 119 H 188 H 05/08/19 05/09/19 05/09/19 20:03 07:34 11:14 Hgb Hct POC Glucose 147 H 127 H 266 H PG Care Time/CCT Total # of Minutes Spent Total Time Spent with Patient: Total time spent is greater than 50% in coordination of care (as documented) at patient's floor/unit and/or counseling patient: Coding Level of Care Code 54869 Subseq Obs Care Lvl 2 Diagnoses Chest pain R07.9 Chest pain type: unspecified CAD (coronary artery disease) I25.10 Associated angina: angina presence unspecified Coronary Disease-Associated Artery/Lesion type: unspecified vessel or lesion type [place] vs. transplanted heart: [place] heart Mitral stenosis I05.0 Ventricular aneurysm I25.3 Anemia D64.9 (1) Chest pain Chest pain type: unspecified Qualified Code(s): R07.9 - Chest pain, unspecified (2) CAD (coronary artery disease) Associated angina: angina presence unspecified Coronary Disease-Associated Artery/Lesion type: unspecified vessel or lesion type [place] vs. transplanted heart: [place] heart Qualified Code(s): I25.10 - Atherosclerotic heart disease of [place] coronary artery without angina pectoris
== END 2019-05-09 13:12 | disposition home health service (06) | DRG 281 ==
LOC: ED 06:55 → 2S 06:55 → SUATTDRO 05-06 09:59 → 2S 05-08 17:59

== ENCOUNTER 2020-09-30 00:22 | Inpatient (IN) ==
[2020-09-30] MEDS ORDERED: ASPIRIN CHEW 324 MG PO STA (00:41)
[2020-09-30] MEDS ORDERED: NITROGLYCERIN 2% OINTMENT 30GM TUBE EXT ONE (00:44)
[2020-09-30 01:18] LABS: Basophils # (auto) 0.01 K/uL (0-0.2); Basophils % (auto) 0.1 %; Eosinophils # (auto) 0.19 K/uL (0-0.5); Eosinophils % (auto) 2.7 %; Hematocrit (blood only) 30.2 % (37-47); Hemoglobin 9.7 g/dL (12.0-16.0); Immature Granulocytes # (auto) 0.02 K/uL (0.00-0.02); Immature Granulocytes % (auto) 0.3 %; Lymphocytes # (auto) 1.93 K/uL (1.2-3.4); Mean Corpuscular Hemoglobin 29.7 pg (25-34); Mean Corpuscular Hgb Conc 32.1 g/dL (32-36); Mean Corpuscular Volume 92.4 fL (80-100); Mean Platelet Volume 10.7 fL (7.4-10.4); Monocytes # (auto) 0.57 K/uL (0.11-0.59); Neutrophils # (auto) 4.43 K/uL (1.4-6.5); Neutrophils % (auto) 61.9 %; Platelet Count 235 K/uL (130-400); RDW Coefficient of Variation 14.3 % (11.5-14.5); RDW Standard Deviation 48.5 fL (36.4-46.3); Red Blood Count 3.27 M/uL (4.2-5.4); White Blood Count 7.15 K/uL (4.8-10.8)
[2020-09-30 01:33] LABS: Partial Thromboplastin Ratio 1.1; Partial Thromboplastin Time 28.9 Seconds (21.0-31.0)
[2020-09-30 01:37] LABS: Alanine Aminotransferase 12 U/L (12-78); Albumin Level 3.1 gm/dl (3.4-5.0); Aspartate Aminotransferase 16 U/L (15-37); BUN Creatinine Ratio 11.5 (10-20); Blood Urea Nitrogen 33 mg/dl (7-18); Calcium 9.2 mg/dl (8.5-10.1); Carbon Dioxide 28 mmol/L (21-32); Chloride 104 mmol/L (98-107); Est GFR (African American) 17.1 ml/min; Est GFR (Non-African American) 14.7 ml/min; Glucose 288 mg/dl (70-99); Lipase 63 U/L (73-393); Potassium 4.6 mmol/L (3.5-5.1); Sodium 135 mmol/L (136-145)
[2020-09-30 02:08] LABS: Albumin Globulin Ratio 0.6 (0.9-2); Alkaline Phosphatase 61 U/L (45-117); Bilirubin,Total 0.5 mg/dl (0.2-1); Globulin 4.9 gm/dl (2.5-4.0); Troponin I 0.271 ng/ml (0-0.045)
[2020-09-30] MEDS ORDERED: Heparin IV Adult Wt-Based Low-Dose WITH Bolus Protocol STA (02:23)
[2020-09-30] MEDS ORDERED: HEPARIN SOD (PORCINE) 1000 UNIT/ML IV ONE (02:38)
[2020-09-30] MEDS ORDERED: HEPARIN SODIUM/DEXTROSE 25,000 UNITS/500 ML BAG IV SCH (02:45)
--- NOTE | 2020-09-30 02:51 | History & Physical Report ---
Date of Service September 30, 2020 Assessment & Plan (1) Stable angina pectoris: Plan: 1. Elevated Troponin - most likely secondary to CHF exacerbation - weight up to 207 lbs from dry weight of [address] Gupta's note in July 2020 - chronically elevated, decreased today at 0.2 from previous 0.3, additionally likely to be elevated given CKD4 - mild EKG changes? from right bundle to bifascicular block - cardiology consult - continue antiplatelet agents [asa, plavix] - trend trop - nitropaste, EKG for chest pain PRN 2. CHF exacerbation - ECHO may 2020 showing EF 60-65%, defer repeating echo at this time - increased lasix past previous 20 daily to 20 mg po bid - intake/output - proBNP Hx CABG, Angina - continue metoprolol, ranolazine, statin DM2 - on 15 u glargine bid, 12 u lantus TID - SSI - a1c AM - BSG elevated on admission due to not having evening dose of glargine at home hypothyroidism - levothyroxine dvt ppx: heparin sq bid fen/gi: npo code status: DNR/DNI dispo: med/tele (2) Elevated troponin: (3) CHF exacerbation: (4) Chronic kidney disease, stage IV (severe): (5) Hx of CABG: (6) Chronic diastolic CHF (congestive heart failure): (7) Lower extremity edema: (8) LVH (left ventricular hypertrophy): (9) Mitral valve disorder: (10) Ventricular aneurysm: (11) Mitral stenosis: (12) Hypertension: (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 Normally she is able to walk around her apartment without issue, but has difficulty sweep ing or cleaning. Not being able to stand and cook was odd for her. She describes a chest pressure in her central chest that radiated to her back. She said that she normally takes a nitro tab and it makes that kind of pain go away but this time it didn't go away. She notes that she's also gained about 20 pounds during the pandemic and feels that much of it is water weight. She denies any shortness of breath at rest. No new numbness/tingling, lightheadedness, nausea, vomiting. Allergies Allergy/AdvReac Type Severity Reaction Status Date / Time risperidone [From Risperdal] Allergy Unknown ON [facility] Verified 09/30/20 00:46 LIST Home Medications Medication Instructions Recorded Confirmed Type famotidine 10 mg tablet 10 mg PO BIDM 06/12/18 09/30/20 History omega 8-ngk-tji-fish oil 1,000 mg 1,000 mg PO BIDM 06/12/18 09/30/20 History (120 mg-180 mg) capsule (Fish Oil) blood-glucose meter (Contour Next #1 ea 09/25/18 05/03/20 History One Meter) pen needle, diabetic 32 gauge x #600 ea 04/10/19 05/03/20 Rx 5/32" (BD Ultra-Fine Karolina Pen Needle) insulin lispro 100 unit/mL 12 units SUBCUT TID #3 ml 08/06/19 09/30/20 Rx subcutaneous pen (Humalog KwikPen (U-100) Insulin) blood sugar diagnostic (Contour #100 ea 08/15/19 05/03/20 Rx Next Test Strips) insulin glargine 100 unit/mL (3 15 unit SUBCUT BID #3 ml 03/04/20 09/30/20 Rx mL) subcutaneous pen (Lantus Solostar U-100 Insulin) nitroglycerin 0.4 mg sublingual 0.4 mg SUBLINGUAL UD PRN #25 tab 03/04/20 09/30/20 Rx tablet (Nitrostat) furosemide 20 mg tablet (Lasix) 20 mg PO QAM #90 tab 06/03/20 09/30/20 Rx ranolazine 1,000 mg 1,000 mg PO BID #180 tab 06/03/20 09/30/20 Rx tablet,extended release,12 hr clopidogrel 75 mg tablet (Plavix) 75 mg PO DAILY #90 tab 06/21/20 09/30/20 Rx rosuvastatin 40 mg tablet 40 mg PO HS #90 tab 06/21/20 09/30/20 Rx metoprolol succinate 50 mg 50 mg PO HS #90 tab 08/11/20 09/30/20 Rx tablet,extended release 24 hr aspirin 81 mg tablet,delayed 81 mg PO HS 09/30/20 09/30/20 History release (Aspirin Low Dose) levothyroxine 50 mcg tablet 50 mcg PO DAILYBB 09/30/20 09/30/20 History Past Med/Surg History Medical History (Updated 09/30/20 @ 20:47 by Stefani Robbins MD) Anemia CAD (coronary artery disease) Chronic kidney disease, stage IV (severe) 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 Diabetic retinopathy, nonproliferative GERD without esophagitis History of breast cancer Lumpectomy plus radiation Hyperlipidemia Hypertension Hypothyroidism Mild cardiomegaly Mitral stenosis 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 Surgical History H/O lumpectomy left breast 1985 History of appendectomy History of lumbar surgery S/P CABG x 4 (1994) Family History Brother Alcohol abuse Heart disease Diabetes Hypertension Kidney disease Myocardial infarction Father Myocardial infarction Hypertension Diabetes Heart disease Stroke, Onset Age: 56 of stroke at age 56 Mother Heart disease Diabetes Gallbladder disease Myocardial infarction Unknown Breast cancer Other Family history non-contributory Social History Smoking Status: Never smoker Second Hand Exposure: No; Do You Dip or Chew Tobacco: No; Tobacco Cessation Education Requested by Patient: No Hx Alcohol Use: No Hx Substance Use: No Preferred Language: Lao Communication Ability: Effective Visual Impairment: No Limitations 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 living in "[facility]. current occupational status: retired How many Children do You have: 7 How many Children do You have Comment: 3 biological and adopted 4 Other Information That Helps Us Care for You: Yes (pt requires more help in cl eaning and cooking at home- does not have help.) Feels Safe at Home: Yes Safety Concerns: Feels Safe At This Time Childhood Exposure to Second-Hand Smoke: No caffeine: Yes (Soda occasional intake) during the past year weight has: remained stable Dental Care, Regularly: No Physical Activity Frequency: Daily Seatbelt Use: always Sunscreen Use: No Assistive Devices: Glasses Review of Systems Review of Systems: All systems reviewed & are unremarkable except as noted in Subjective Physical Exam Physical Exam: Constitutional: elderly female in no apparent distress, sitting comfortably in bed. Eyes: EOMI, pupils equal and reactive bilaterally, no scleral icterus Cardiac: RRR, no murmurs, gallops or rubs. Normal S1, S2 Pulm: poor inspiratory effort, breathing easily on room air, no retractions or nasal flaring Abd: soft, nontender, nondistended, normal bowel sounds, no rebound or guarding Extremities: 1+ peripheral pulses, 2+ pitting edema to knees bilaterally, chronic venous stasis changes Neuro: no focal deficits, moving all 4 limbs, A&Ox3 Results & Data Results & Data ([facility]) Vital Signs (Past 12 Hours) Vital Signs Temp Pulse Resp BP Pulse Ox 09/30/20 02:00 73 18 175/74 H 97 09/30/20 01:30 73 17 165/85 H 96 09/30/20 01:06 75 23 178/110 H 96 09/30/20 00:26 36.6 C 78 18 191/86 H 97 Laboratory Results Laboratory Results WBC 7.15 K/uL (4.8-10.8) 09/30/20 00:52 RBC 3.27 M/uL (4.2-5.4) L 09/30/20 00:52 Hgb 9.7 g/dL (12.0-16.0) L 09/30/20 00:52 Hct 30.2 % (37-47) L 09/30/20 00:52 MCV 92.4 fL (80-100) 09/30/20 00:52 MCH 29.7 pg (25-34) 09/30/20 00:52 MCHC 32.1 g/dL (32-36) 09/30/20 00:52 RDW Std Deviation 48.5 fL (36.4-46.3) H 09/30/20 00:52 RDW Coeff of Shelli 14.3 % (11.5-14.5) 09/30/20 00:52 Plt Count 235 K/uL (130-400) 09/30/20 00:52 MPV 10.7 fL (7.4-10.4) H 09/30/20 00:52 Immature Gran % (Auto) 0.3 % 09/30/20 00:52 Neut % (Auto) 61.9 % 09/30/20 00:52 Lymph % (Auto) 27.0 % 09/30/20 00:52 Carbon % (Auto) 8.0 % 09/30/20 00:52 Eos % (Auto) 2.7 % 09/30/20 00:52 Baso % (Auto) 0.1 % 09/30/20 00:52 Neut # (Auto) 4.43 K/uL (1.4-6.5) 09/30/20 00:52 Lymph # (Auto) 1.93 K/uL (1.2-3.4) 09/30/20 00:52 Carbon # (Auto) 0.57 K/uL (0.11-0.59) 09/30/20 00:52 Eos # (Auto) 0.19 K/uL (0-0.5) 09/30/20 00:52 Baso # (Auto) 0.01 K/uL (0-0.2) 09/30/20 00:52 Immature Gran # (Auto) 0.02 K/uL (0.00-0.02) 09/30/20 00:52 APTT 28.9 Seconds (21.0-31.0) 09/30/20 00:52 PTT Ratio 1.1 09/30/20 00:52 Sodium 135 mmol/L (136-145) L 09/30/20 00:52 Potassium 4.6 mmol/L (3.5-5.1) 09/30/20 00:52 Chloride 104 mmol/L (98-107) 09/30/20 00:52 Carbon Dioxide 28 mmol/L (21-32) 09/30/20 00:52 Anion Gap 3.0 (3-11) 09/30/20 00:52 BUN 33 mg/dl (7-18) H 09/30/20 00:52 Creatinine 2.89 mg/dl (0.6-1.2) H 09/30/20 00:52 Est Cr Clr Drug Dosing Not Reportable 09/30/20 00:52 Est GFR ( Amer) 17.1 ml/min 09/30/20 00:52 Est GFR (Non-Af Amer) 14.7 ml/min 09/30/20 00:52 BUN/Creatinine Ratio 11.5 (10-20) 09/30/20 00:52 Glucose 288 mg/dl (70-99) H 09/30/20 00:52 Calcium 9.2 mg/dl (8.5-10.1) 09/30/20 00:52 Total Bilirubin 0.5 mg/dl (0.2-1) 09/30/20 00:52 AST 16 U/L (15-37) 09/30/20 00:52 ALT 12 U/L (12-78) 09/30/20 00:52 Alkaline Phosphatase 61 U/L (45-117) 08 00:52 Troponin I 0.271 ng/ml (0-0.045) H* 09/30/20 00:52 Total Protein 8.0 gm/dl (6.4-8.2) 09/30/20 00:52 Albumin 3.1 gm/dl (3.4-5.0) L 09/30/20 00:52 Globulin 4.9 gm/dl (2.5-4.0) H 09/30/20 00:52 Albumin/Globulin Ratio 0.6 (0.9-2) L 09/30/20 00:52 Lipase 63 U/L (73-393) L 09/30/20 00:52 COVID-19 Eval Order Covid19 at [facility] 09/30/20 01:03 SARS-CoV-2 (PCR) NEGATIVE (Negative) 09/30/20 01:03 Medications Administered Discontinued Medications Aspirin (Aspirin Chew 324 Mg) 324 mg PO NOW STA Stop: 09/30/20 00:42 Last Admin: 09/30/20 00:45 Dose: 324 mg Documented by: [id number] Heparin Sodium (Porcine) (Heparin Sod (Porcine) 1000 Unit/Ml) 1 units IV NOW ONE Stop: 09/30/20 02:39 Last Admin: 09/30/20 03:37 Dose: Not Given Documented by: [id number] Heparin Sodium/Dextrose (Heparin Iv Adult Wt-Based Low-Dose With Bolus Protocol) 1 ea N/A NOW STA; Protocol Stop: 09/30/20 02:24 Last Admin: 09/30/20 03:36 Dose: Not Given Documented by: [id number] Heparin Sodium/Dextrose (Heparin Sodium/Dextrose) 25,000 units in 500 mls @ 0.02 mls/hr IV .Q24H ADE; Protocol Stop: 10/30/20 02:44 Last Admin: 09/30/20 03:37 Dose: Not Given Documented by: [id number] Nitroglycerin (Nitroglycerin 2% Ointment 30gm Tube) 1 inch EXT NOW ONE Stop: 09/30/20 00:45 Last Admin: 09/30/20 00:50 Dose: 1 inch Documented by: [id number] Supervising Physician Co-Signing Physician Notes Attending addendum: I have physically seen this patient, have supervised the medical residents activities, and agree with the H&P unless as otherwise noted. Assessment and Plan: Elevated troponin/CAD/hypertension/history of non-STEMI/acute on chronic diastolic CHF/moderate mitral stenosis/mild mitral regurgitation- The patient will be admitted to telemetry for serial cardiac enzymes, serial EKG's, cardiac rhythm monitoring. Last echo 08/05/2020 Troponin 0.271 upon admission, unclear if chronically elevated or had normalized last time he got back up again. Asymptomatic at this time If develops symptoms overnight would start heparin drip Continue ranolazine, metoprolol succinate, clopidogrel and aspirin Give Lasix 40 mg IV tonight, and repeat every morning. Diabetes mellitus- Placed on Accu-Cheks before meals and at bedtime with NovoLog coverage per scale Reduce Lantus from 15 to 12 units subcu twice daily Check hemoglobin A1c Remaining orders and notations as noted Resident Activity Tracking Resident Involvement: Resident Care Provided Care Provided: Adult Hospital Medicine (1) Hyperlipidemia Hyperlipidemia type: mixed hyperlipidemia Qualified Code(s): E78.2 - Mixed h yperlipidemia (2) Hypothyroidism Hypothyroidism type: acquired Qualified Code(s): E03.9 - Hypothyroidism, unspecified
--- NOTE | 2020-09-30 04:04 | Emergency Department Note ---
History of Present Illness General Chief complaint: Cardiac Assessment Stated complaint: CHEST HEAVY,ARM PAIN AND ELBOW Time Seen by Provider: 09/30/20 00:40 Source: patient, family (At the bedside) and RN notes reviewed Mode of arrival: ambulatory Limitations: no limitations History of Present Illness Provider complaint: Chest pain radiating to the left elbow and jaw Maximum Pain Intensity: 4 This patient is an 80-year-old female who presents to the emergency department with complaints of chest pressure that radiates to the left arm and jaw that has been intermittent for the last several months but today persisted despite 2 nitroglycerin tablets. Patient has known history of coronary artery disease and had a CABG many years ago. Patient is also had stents placed approximately 10 to 12 years ago. She follows with Dr. Gupta of cardiology as well as an outside compensation consulting manager. Patient states she was told she should not have a catheterization secondary to her kidney function. She has been on Ranexa due to angina with exertion. For the most part the chest discomfort resolves when she rests however today it persisted. Patient denies any shortness of breath or diaphoresis but admits to significant discomfort. Home Medications Medication Instructions Recorded Confirmed Type famotidine 10 mg tablet 10 mg PO BIDM 06/12/18 09/30/20 History omega 9-[id number]-fish oil 1,000 mg 1,000 mg PO BIDM 06/12/18 09/30/20 History (120 mg-180 mg) capsule (Fish Oil) blood-glucose meter (Contour Next #1 ea 09/25/18 05/03/20 History One Meter) pen needle, diabetic 32 gauge x #600 ea 04/10/19 05/03/20 Rx 32" (BD Ultra-Fine Karolina Pen Needle) insulin lispro 100 unit/mL 12 units SUBCUT TID #3 ml 08/06/19 09/30/20 Rx subcutaneous pen (Humalog KwikPen (U-100) Insulin) blood sugar diagnostic (Contour #100 ea 08/15/19 05/03/20 Rx Next Test Strips) insulin glargine 100 unit/mL (3 15 unit SUBCUT BID #3 ml 03/04/20 09/30/20 Rx mL) subcutaneous pen (Lantus Solostar U-100 Insulin) nitroglycerin 0.4 mg sublingual 0.4 mg SUBLINGUAL UD PRN #25 tab 03/04/20 09/30/20 Rx tablet (Nitrostat) furosemide 20 mg tablet (Lasix) 20 mg PO QAM #90 tab 06/03/20 09/30/20 Rx ranolazine 1,000 mg 1,000 mg PO BID #180 tab 06/03/20 09/30/20 Rx tablet,extended release,12 hr clopidogrel 75 mg tablet (Plavix) 75 mg PO DAILY #90 tab 06/21/20 09/30/20 Rx rosuvastatin 40 mg tablet 40 mg PO HS #90 tab 06/21/20 09/30/20 Rx metoprolol succinate 50 mg 50 mg PO HS #90 tab 08/11/20 09/30/20 Rx tablet,extended release 24 hr aspirin 81 mg tablet,delayed 81 mg PO HS 09/30/20 09/30/20 History release (Aspirin Low Dose) levothyroxine 50 mcg tablet 50 mcg PO DAILYBB 09/30/20 09/30/20 History Allergies Allergy/AdvReac Type Severity Reaction Status Date / Time risperidone [From Risperdal] Allergy Unknown ON [facility] Verified 09/30/20 00:46 LIST Past Med/Surg History Medical History (Updated 09/30/20 @ 20:47 by Stefani Robbins MD) Anemia CAD (coronary artery disease) Chronic kidney disease, stage IV (severe) 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 Diabetic retinopathy, nonproliferative GERD without esophagitis History of breast cancer Lumpectomy plus radiation Hyperlipidemia Hypertension Hypothyroidism Mild cardiomegaly Mitral stenosis 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 Surgical History H/O lumpectomy left breast 1985 History of appendectomy History of lumbar surgery S/P CABG x 4 (1994) Family History Brother Alcohol abuse Heart disease Diabetes Hypertension Kidney disease Myocardial infarction Father Myocardial infarction Hypertension Diabetes Heart disease Stroke, Onset Age: 56 of stroke at age 56 Mother Heart disease Diabetes Gallbladder disease Myocardial infarction Unknown Breast cancer Other Family history non-contributory Social History Smoking Status: Never smoker Second Hand Exposure: No; Do You Dip or Chew Tobacco: No; Tobacco Cessation Education Requested by Patient: No Hx Alcohol Use: No Hx Substance Use: No Preferred Language: Maltese Communication Ability: Effective Visual Impairment: No Limitations Hearing Ability: Normal Senior Backup Administrator Required: No Beliefs That Will Affect Care: None marital status: / Current Living Situation: Alone Current Living Situation Comment: alone with indep. living in "[facility]. current occupational status: retired How many Children do You have: 7 How many Children do You have Comment: 3 biological and adopted 4 Other Information That Helps Us Care for You: Yes (pt requires more help in cleaning and cooking at home- does not have help.) Feels Safe at Home: Yes Safety Concerns: Feels Safe At This Time Childhood Exposure to Second-Hand Smoke: No caffeine: Yes (Soda occasional intake) during the past year weight has: remained stable Dental Care, Regularly: No Physical Activity Frequency: Daily Seatbelt Use: always Sunscreen Use: No Assistive Devices: Glasses Review of Systems See HPI for pertinent positives & negatives. and A total of 10 systems reviewed and were otherwise negative Physical Exam Vital Signs Vital Signs - 24 hr 09/30/20 00:26 09/30/20 01:06 09/30/20 01:30 Temperature 36.6 C Temperature Source Temporal Artery Scan Pulse Rate 78 75 73 Pulse Rate from SpO2 Sensor 75 74 Respiratory Rate 18 23 17 Respiratory Depth Normal Blood Pressure 191/86 H 178/110 H 165/85 H Blood Pressure Mean 121 132 111 Pulse Oximetry 97 96 96 Oxygen Delivery Method Room Air Room Air Room Air Sepsis New/Unexplained Change in Mental Status N/A Sepsis Action Taken by Nursing No Action Required 09/30/20 02:00 09/30/20 02:31 Temperature Temperature Source Pulse Rate 73 71 Pulse Rate from SpO2 Sensor 73 Respiratory Rate 18 18 Respiratory Depth Blood Pressure 175/74 H 187/95 H Blood Pressure Mean 107 125 Pulse Oximetry 97 Oxygen Delivery Method Room Air Sepsis New/Unexplained Change in Mental Status Sepsis Action Taken by Nursing Vital signs reviewed. General: Well-appearing 80-year-old female, in no significant distress. HEENT: No scleral icterus, PERRLA, neck supple. Atraumatic. Cardiovascular: Regular rate and rhythm, no extra sounds. Pulmonary: Clear to auscultation bilaterally, normal work of breathing. Abdomen: Soft, obese, nontender, nondistended, positive bowel sounds. Musculoskeletal: Atraumatic, no peripheral edema. Neurologic: Patient awake alert and oriented x 3 Skin: Warm, dry, no rash Course Administered Medications Clopidogrel Bisulfate (Clopidogrel Bisulfate 75 Mg Tab) 75 mg PO DAILY [facility] Stop: 10/30/20 08:59 Last Admin: 09/30/20 07:17 Dose: 75 mg Documented by: [id number] Famotidine (Famotidine 10 Mg Tablet) 10 mg PO BIDM [facility] Stop: 10/30/20 07:59 Last Admin: 09/30/20 17:12 Dose: 10 mg Documented by: [id number] Admin: 09/30/20 07:17 Dose: 10 mg Documented by: [id number] Heparin Sodium (Porcine) (Heparin Sod 5,000 Unit/0.5 Ml Vial) 5,000 units SQ Q12 [facility] Stop: 10/30/20 08:59 Last Admin: 09/30/20 07:16 Dose: 5,000 units Documented by: [id number] Heparin Sodium/Dextrose (Heparin Sodium/Dextrose) 25,000 units in 500 mls @ 24 mls/hr IV .[id number] [facility]; Protocol Stop: 10/30/20 08:14 Last Titration: 09/30/20 19:07 Dose: 1,200 units/hr, 24 mls/hr Documented by: [id number] Cosigned by: [id number] Titration: 09/30/20 15:11 Dose: 1,200 units/hr, 24 mls/hr Documented by: [id number] Cosigned by: [id number] Admin: 09/30/20 08:27 Dose: 1,200 units/hr, 24 mls/hr Documented by: [id number] Cosigned by: [id number] Insulin Aspart (Insulin Aspart 100 Units/Ml 3 Ml Pen) 0 units SC ACHS [facility] Stop: 10/30/20 07:29 Last Admin: 09/30/20 17:12 Dose: 3 units Documented by: [id number] Cosigned by: [id number] Admin: 09/30/20 12:28 Dose: 7 units Documented by: [id number] Cosigned by: [id number] Admin: 09/30/20 08:04 Dose: 4 units Documented by: [id number] Cosigned by: [id number] Insulin Glargine (Insulin Glargine Solostar 100 Units/Ml 3 Ml Pen) 15 units SQ BID [facility] Stop: 10/30/20 08:59 Last Admin: 09/30/20 08:05 Dose: 15 units Documented by: [id number] Cosigned by: [id number] Levothyroxine Sodium (Levothyroxine Sodium 50 Mcg Tablet) 50 mcg PO DAILYBB [facility] Stop: 10/30/20 06:29 Last Admin: 09/30/20 05:51 Dose: 50 mcg Documented by: [id number] Ranolazine (Ranolazine 500 Mg Er Tab) 1,000 mg PO BID [facility] Stop: 10/30/20 08:59 Last Admin: 09/30/20 07:17 Dose: 1,000 mg Documented by: [id number] Discontinued Medications Aspirin (Aspirin Chew 324 Mg) 324 mg PO [facility] Stop: 09/30/20 00:42 Last Admin: 09/30/20 00:45 Dose: 324 mg Documented by: [id number] Furosemide (Furosemide 20 Mg Tab) 20 mg PO BID17 [facility] Stop: 10/30/20 08:59 Last Admin: 09/30/20 07:18 Dose: 20 mg Documented by: [id number] Heparin Sodium (Porcine) (Heparin Sod (Porcine) 1000 Unit/Ml) 1 units IV NOW ONE Stop: 09/30/20 02:39 Last Admin: 09/30/20 03:37 Dose: Not Given Documented by: [id number] Heparin Sodium/Dextrose (Heparin Iv Adult Wt-Based Low-Dose With Bolus Protocol) 1 ea N/A [facility]; Protocol Stop: 09/30/20 02:24 Last Admin: 09/30/20 03:36 Dose: Not Given Documented by: [id number] Heparin Sodium/Dextrose (Heparin Sodium/Dextrose) 25,000 units in 500 mls @ 0.02 mls/hr IV .Q24H [facility]; Protocol Stop: 10/30/20 02:44 Last Admin: 09/30/20 03:37 Dose: Not Given Documented by: [id number] Furosemide 40 mg/ Syringe 4 mls @ 4 mls/min IV ONE ONE Stop: 09/30/20 15:16 Last Admin: 09/30/20 15:33 Dose: 4 mls/min Documented by: [id number] Metoprolol Succinate (Metoprolol Succ 50mg Ext Rel Tab) 50 mg PO [facility] Stop: 10/30/20 04:59 Last Admin: 09/30/20 05:51 Dose: 50 mg Documented by: [id number] Metoprolol Tartrate (Metoprolol Tartrate 25 Mg Tab) 25 mg PO NOW ONE Stop: 09/30/20 14:55 Last Admin: 09/30/20 15:33 Dose: 25 mg Documented by: [id number] Nitroglycerin (Nitroglycerin 2% Ointment 30gm Tube) 1 inch EXT NOW ONE Stop: 09/30/20 00:45 Last Admin: 09/30/20 00:50 Dose: 1 inch Documented by: [id number] Nitroglycerin (Nitroglycerin Sl 0.4 Mg/Tab Tab) 0.4 mg SL NOW [facility] Stop: 09/30/20 08:08 Last Admin: 09/30/20 08:14 Dose: 0.4 mg Documented by: [id number] Critical Care Time Critical Care Time: Yes Total Critical Care Time: 35 I have personally spent 35 minutes of critical care time in the direct management of this patient. This was a life/limb threatening event. This 35 minutes is in excess of all separately billable procedures. Medical Decision Making Differential Diagnosis Cardiac ischemia, aortic dissection, pulmonary embolism, pneumothorax, pneumonia, pericarditis, myocarditis, esophageal rupture, GERD, cholecystitis, p ancreatitis, musculoskeletal, as well as other pathologies. Medical Records Attestation: I reviewed the patient's medical records. Home Medications Current Medication List: was personally reviewed by me Laboratory Data Attestation: I reviewed the patient's lab results. Result diagrams: 09/30/20 00:52 09/30/20 00:52 Lab Results 09/30/20 09/30/20 09/30/20 Range/Units 00:52 00:52 00:52 WBC 7.15 (4.8-10.8) K/uL RBC 3.27 L (4.2-5.4) M/uL Hgb 9.7 L (12.0-16.0) g/dL Hct 30.2 L (37-47) % MCV 92.4 (80-100) fL MCH 29.7 (25-34) pg MCHC 32.1 (32-36) g/dL RDW Std Deviation 48.5 H (36.4-46.3) fL RDW Coeff of Shelli 14.3 (11.5-14.5) % Plt Count 235 (130-400) K/uL MPV 10.7 H (7.4-10.4) fL Immature Gran % (Auto) 0.3 % Neut % (Auto) 61.9 % Lymph % (Auto) 27.0 % Graham % (Auto) 8.0 % Eos % (Auto) 2.7 % Baso % (Auto) 0.1 % Neut # (Auto) 4.43 (1.4-6.5) K/uL Lymph # (Auto) 1.93 (1.2-3.4) K/uL Graham # (Auto) 0.57 (0.11-0.59) K/uL Eos # (Auto) 0.19 (0-0.5) K/uL Baso # (Auto) 0.01 (0-0.2) K/uL Immature Gran # (Auto) 0.02 (0.00-0.02) K/uL PT (9.0-12.0) Seconds INR (0.9-1.1) APTT 28.9 (21.0-31.0) Seconds PTT Ratio 1.1 Sodium 135 L (136-145) mmol/L Potassium 4.6 (3.5-5.1) mmol/L Chloride 104 (98-107) mmol/L Carbon Dioxide 28 (21-32) mmol/L Anion Gap 3.0 (3-11) BUN 33 H (7-18) mg/dl Creatinine 2.89 H (0.6-1.2) mg/dl Est Cr Clr Drug Dosing Not Reportable Est GFR ( Amer) 17.1 ml/min Est GFR (Non-Af Amer) 14.7 ml/min BUN/Creatinine Ratio 11.5 (10-20) Glucose 288 H (70-99) mg/dl Calcium 9.2 (8.5-10.1) mg/dl Total Bilirubin 0.5 (0.2-1) mg/dl AST 16 (15-37) U/L ALT 12 (12-78) U/L Alkaline Phosphatase 61 (45-117) U/L Troponin I 0.271 H* (0-0.045) ng/ml Total Protein 8.0 (6.4-8.2) gm/dl Albumin 3.1 L (3.4-5.0) gm/dl Globulin 4.9 H (2.5-4.0) gm/dl Albumin/Globulin Ratio 0.6 L (0.9-2) Lipase 63 L (73-393) U/L COVID-19 Eval Order SARS-CoV-2 (PCR) (Negative) 09/30/20 09/30/20 09/30/20 Range/Units 00:52 01:03 01:03 WBC (4.8-10.8) K/uL RBC (4.2-5.4) M/uL Hgb (12.0-16.0) g/dL Hct (37-47) % MCV (80-100) fL MCH (25-34) pg MCHC (32-36) g/dL RDW Std Deviation (36.4-46.3) fL RDW Coeff of Shelli (11.5-14.5) % Plt Count (130-400) K/uL MPV (7.4-10.4) fL Immature Gran % (Auto) % Neut % (Auto) % Lymph % (Auto) % Graham % (Auto) % Eos % (Auto) % Baso % (Auto) % Neut # (Auto) (1.4-6.5) K/uL Lymph # (Auto) (1.2-3.4) K/uL Graham # (Auto) (0.11-0.59) K/uL Eos # (Auto) (0-0.5) K/uL Baso # (Auto) (0-0.2) K/uL Immature Gran # (Auto) (0.00-0.02) K/uL PT 10.4 (9.0-12.0) Seconds INR 1.0 (0.9-1.1) APTT (21.0-31.0) Seconds PTT Ratio Sodium (136-145) mmol/L Potassium (3.5-5.1) mmol/L Chloride (98-107) mmol/L Carbon Dioxide (21-32) mmol/L Anion Gap (3-11) BUN (7-18) mg/dl Creatinine (0.6-1.2) mg/dl Est Cr Clr Drug Dosing Est GFR ( Amer) ml/min Est GFR (Non-Af Amer) ml/min BUN/Creatinine Ratio (10-20) Glucose (70-99) mg/dl Calcium (8.5-10.1) mg/dl Total Bilirubin (0.2-1) mg/dl AST (15-37) U/L ALT (12-78) U/L Alkaline Phosphatase (45-117) U/L Troponin I (0-0.045) ng/ml Total Protein (6.4-8.2) gm/dl Albumin (3.4-5.0) gm/dl Globulin (2.5-4.0) gm/dl Albumin/Globulin Ratio (0.9-2) Lipase (73-393) U/L COVID-19 Eval Order Covid19 at [facility] SARS-CoV-2 (PCR) NEGATIVE (Negative) Imaging Data Radiologist's Impression: Chest X-Ray 09/30/20 00:41 SINGLE VIEW CHEST CLINICAL HISTORY: Atypical chest pain. FINDINGS: An AP, portable, upright chest radiograph is compared to study dated 05/05/2019. The patient is status post midline sternotomy. The heart is enlarged noting atherosclerotic calcification of the thoracic aorta. There is pulmonary vascular congestion. Scarring/atelectasis is noted at the lung bases. No airspace consolidation or large pleural effusion is identified. No pneumothorax is seen. The skeletal structures are osteopenic. The bony thorax is grossly intact. IMPRESSION: Cardiomegaly with pulmonary vascular congestion. ACT 112: Negative or not required by law. Electronically signed by: Boone Johnson M.D. 09/30/2020 8:24 AM ECG Data Attestation: I personally reviewed and interpreted this ECG as follows: Indication: + chest pain Rate (beats per minute): 83 Rhythm: + normal sinus ECG Intervals/blocks: + Left posterior fascicular block, + Right Bundle branch block and + Prolonged QT ECG ST segments: + Normal ST segments; no ST elevation ECG Findings: + Q waves (Inferior, anterior); no PACs or no PVCs Blood Pressure Blood Pressure Findings: Elevated blood pressure Blood Pressure Disposition: further management by hospitalist MARY Narrative This patient was evaluated and appeared to be in no significant distress. IV access was obtained and laboratory work was drawn. An order for cardiac monitoring was placed and the patient is noted to be in normal sinus rhythm at 73 bpm. Patient was given 3 baby aspirin to chew her she had taken 1 prior to arrival. 1 inch of nitroglycerin paste was applied to the anterior chest wall. Patient's EKG reveals no evidence of ST elevation NE. She does have a right bundle branch block with a left posterior fascicular block. Cardiac enzymes are elevated at 0.2. Patient was started on a heparin drip. Patient does have significant cardiac history as well as renal disease. Further cardiac evaluation is warranted. Case was discussed with the hospitalist service who will evaluate the patient for further management. Patient and family were made aware of plan and agreed. Impression & Plan NSTEMI (non-ST elevated myocardial infarction), Chronic kidney disease, stage IV (severe) Discharge Plan Visit Data Chief Complaint: Cardiac Assessment Stated Complaint: CHEST HEAVY,ARM PAIN AND ELBOW ED Provider: Stefani Robbins Discharge Problem: NSTEMI (non-ST elevated myocardial infarction), Chronic kidney disease, stage IV (severe) Patient Disposition: Admitted As Inpatient Discharge Instructions Interventions: ED Discharge Assessment Last Done: 09/30/20 03:59
[2020-09-30] MEDS ORDERED: ONDANSETRON INJ 2 MG/ML 2 ML VIAL IV PRN (05:00)
[2020-09-30] MEDS ORDERED: MAGNESIUM HYDROXIDE SUSP 30 ML UDC PO PRN (05:00)
[2020-09-30] MEDS ORDERED: METOPROLOL SUCC 50MG EXT REL TAB PO SCH (05:00)
[2020-09-30] MEDS ORDERED: MoRPHine SULFATE 2 MG/ML CARP IV PRN (05:00)
[2020-09-30] MEDS ORDERED: ACETAMINOPHEN 325 MG TAB PO PRN (05:00)
[2020-09-30] MEDS ORDERED: NITROGLYCERIN SL 0.4 MG/TAB TAB SL PRN (05:00)
[2020-09-30] MEDS ORDERED: CARBOHYDRATES FOR HYPOGLYCEMIA PO PRN ×2 (05:15)
[2020-09-30] MEDS ORDERED: GLUCOSE 10 TABS/TUBE PO PRN ×2 (05:15)
[2020-09-30] MEDS ORDERED: DEXTROSE 50% 50 ML SYRINGE IV PRN ×2 (05:15)
[2020-09-30] MEDS ORDERED: GLUCOSE 40% GEL 15 GM TUBE PO PRN ×2 (05:15)
[2020-09-30] MEDS ORDERED: GLUCAGON FOR INJ 1 MG VIAL SQ PRN (05:15)
[2020-09-30] MEDS ORDERED: GLUCAGON FOR INJ 1 MG VIAL IM PRN (05:15)
[2020-09-30] MEDS: LEVOTHYROXINE SODIUM 50 MCG TABLET PO SCH (05:51)
[2020-09-30] MEDS: HEPARIN SOD 5,000 UNIT/0.5 ML VIAL SQ SCH ×2 (07:16→22:25)
[2020-09-30] MEDS: FAMOTIDINE 10 MG TABLET PO SCH ×2 (07:17→17:12)
[2020-09-30] MEDS: RANOLAZINE 500 MG ER TAB PO SCH ×2 (07:17→20:37)
[2020-09-30] MEDS: CLOPIDOGREL BISULFATE 75 MG TAB PO SCH (07:17)
[2020-09-30] MEDS ORDERED: Heparin IV Adult Wt-Based Standard *NO* Bolus Protocol IV SCH (07:52)
[2020-09-30] MEDS: INSULIN ASPART 100 UNITS/ML 3 ML PEN SC SCH ×4 (08:04→20:40)
[2020-09-30] MEDS: INSULIN GLARGINE SOLOSTAR 100 UNITS/ML 3 ML PEN SQ SCH ×2 (08:05→20:38)
--- NOTE | 2020-09-30 08:05 | XRay Report ---
XR chest 1V portable HISTORY: elevated troponin COMPARISON: Chest 09/30/2020. FINDINGS: No pneumothorax. No pleural effusions. The heart remains mildly enlarged. Diffuse interstit ial thickening is again noted. This likely represents mild congestive change. No new focal lung conso lidations. There are poststernotomy changes. IMPRESSION: No change in the cardiomegaly and diffuse interstitial thickening suggestive of mild congestive cross e. ACT 112: Negative or not required by law. Electronically signed by: Cesar Morrison M.D. 09/30/2020 8:03 AM
[2020-09-30] MEDS ORDERED: NITROGLYCERIN SL 0.4 MG/TAB TAB SL STA (08:07)
--- NOTE | 2020-09-30 08:25 | XRay Report ---
SINGLE VIEW CHEST CLINICAL HISTORY: Atypical chest pain. FINDINGS: An AP, portable, upright chest radiograph is compared to study dated 05/05/2019. The patient is status post midline sternotomy. The heart is enlarged noting atherosclerotic calcification of the thoracic aorta. There is pulmonary vascular congestion. Scarring/atelectasis is noted at the lung ba ses. No airspace consolidation or large pleural effusion is identified. No pneumothorax is seen. The skeletal structures are osteopenic. The bony thorax is grossly intact. IMPRESSION: Cardiomegaly with pulmonary vascular congestion. ACT 112: Negative or not required by law. Electronically signed by: Boone Johnson M.D. 09/30/2020 8:24 AM
[2020-09-30] MEDS: HEPARIN SODIUM/DEXTROSE 25,000 UNITS/500 ML BAG IV SCH (08:27)
[2020-09-30 08:51] LABS: Prothrombin Time 10.4 Seconds (9.0-12.0)
[2020-09-30] MEDS ORDERED: NON-FORMULARY MEDICATION (Insulin Lispro [Humalog Kwikpen Insulin] 100 unit/mL insulin pen SQ SCH (09:00)
[2020-09-30] MEDS ORDERED: FUROSEMIDE 20 MG TAB PO SCH ×3 (09:00)
[2020-09-30] MEDS ORDERED: Nursing to Pharmacy Communication SCH (09:15)
--- NOTE | 2020-09-30 10:01 | Cardiology Consultation ---
Date of Consultation September 30, 2020 Assessment & Plan (1) NSTEMI (non-ST elevated myocardial infarction): - The patient had a prolonged episode of angina pectoris ( approximately 7 hours). - Troponin I level up to 10.0. - Agree with intravenous heparin. - Continue ranolazine, aspirin, and Plavix - Would increase metoprolol succinate. - Will follow conservative medical management for now. No cardiac catheterization at this time. (2) CAD (coronary artery disease): - History of 4 vessel bypass in 1994 . - History of chronic stable angina pectoris on Ranexa. - Continue medical management. (3) Chronic diastolic CHF (congestive heart failure): - Chest x-ray suggests a component of mild CHF. - Would use intravenous Lasix at 80 mg q.a.m.. - She follows daily weights and sliding-scale diuretics at home. (4) Hypertension: - As above, would increase metoprolol succinate. History of Present Illness Attending Physician: Zia Brewer DO History of Present Illness Mrs. Nash is an 80-year-old female admitted earlier today with a non ST elevation TN. This consultation was ordered to assist in her cardiac management. Of note, the patient is well known to me from the outpatient setting. Patient claims she is in usual state of health until late yesterday afternoon. The patient was attempting to make chile for dinner but began to experience her typical angina pectoris. She noted substernal chest heaviness that radiated to her neck and left elbow. The patient's symptoms lasted for approximately 30 minutes and then resolved with rest. She did not take sublingual nitroglycerin. There were no other associated symptoms such as shortness of breath, nausea, vomiting, or diaphoresis. The patient had a recurrent episode of her typical angina pectoris at approximately 8 p.m.. After approximately 45 minutes, she administered a sublingual nitroglycerin tablet. Her symptoms persisted for another 45 minutes and she took a 2nd nitroglycerin tablet. At approximately 11 p.m., the patient proceeded to the emergency room for further care. The patient explains that her symptoms improved on arrival here, however, waxed and waned until approximately 3 a.m.. She has had no further symptoms since that time. The patient has a longstanding history of coronary artery disease. She had an episode of unstable angina pectoris which prompted a cardiac catheterization and a 4 vessel bypass back in 1994. This was performed in L2 in a. the patient also has a history of chronic stable angina pectoris well controlled with ranolazine. The patient had an echocardiogram performed on August 05, 2020 which noted normal left ventricular systolic function with an apical wall motion abnormality. The patient also carries a history of chronic diastolic CHF. Her "dry" weight at home is approximately 200 pounds. Currently, patient is resting comfortably in bed without complaints. Past medical and surgical history 1. Coronary artery disease -see above 2. CABG times - 3. Chronic stable angina pectoris. 4. Hypertension 5. LVH 6. Chronic diastolic CHF 7. Moderate mitral stenosis 8. Mild mitral regurgitation 9. RBBB 10. Diabetes mellitus 11. Diabetic retinopathy 12. Chronic renal failure 13. GERD 14. Hypothyroidism 15. Appendectomy 16. Left breast lumpectomy and radiation therapy 17. Lumbar fusion 18. DNR Social history , lives alone daughter lives across the road. No tobacco alcohol Family history father at 56 from a CVA Mother at 88 with coronary disease and diabetes Bother at 42 from an TN Review of systems A 10 point review systems was negative except for that described above. Allergies Allergy/AdvReac Type Severity Reaction Status Date / Time risperidone [From Risperdal] Allergy Unknown ON [facility] Verified 09/30/20 00:46 LIST Home Medications Medication Instructions Recorded Confirmed Type famotidine 10 mg tablet 10 mg PO BIDM 06/12/18 09/30/20 History omega 9-nmz-zke-fish oil 1,000 mg 1,000 mg PO BIDM 06/12/18 09/30/20 History (120 mg-180 mg) capsule (Fish Oil) blood-glucose meter (Contour Next #1 ea 09/25/18 05/03/20 History One Meter) pen needle, diabetic 32 gauge x #600 ea 04/10/19 05/03/20 Rx 5/32" (BD Ultra-Fine Karolina Pen Needle) insulin lispro 100 unit/mL 12 units SUBCUT TID #3 ml 08/06/19 09/30/20 Rx subcutaneous pen (Humalog KwikPen (U-100) Insulin) blood sugar diagnostic (Contour #100 ea 08/15/19 05/03/20 Rx Next Test Strips) insulin glargine 100 unit/mL (3 15 unit SUBCUT BID #3 ml 03/04/20 09/30/20 Rx mL) subcutaneous pen (Lantus Solostar U-100 Insulin) nitroglycerin 0.4 mg sublingual 0.4 mg SUBLINGUAL UD PRN #25 tab 03/04/20 09/30/20 Rx tablet (Nitrostat) furosemide 20 mg tablet (Lasix) 20 mg PO QAM #90 tab 06/03/20 09/30/20 Rx ranolazine 1,000 mg 1,000 mg PO BID #180 tab 06/03/20 09/30/20 Rx tablet,extended release,12 hr clopidogrel 75 mg tablet (Plavix) 75 mg PO DAILY #90 tab 06/21/20 09/30/20 Rx rosuvastatin 40 mg tablet 40 mg PO HS #90 tab 06/21/20 09/30/20 Rx metoprolol succinate 50 mg 50 mg PO HS #90 tab 08/11/20 09/30/20 Rx tablet,extended release 24 hr aspirin 81 mg tablet,delayed 81 mg PO HS 09/30/20 09/30/20 History release (Aspirin Low Dose) levothyroxine 50 mcg tablet 50 mcg PO DAILYBB 09/30/20 09/30/20 History Patient History Medical History (Updated 09/30/20 @ 05:10 by Grecia Valle MD) Anemia CAD (coronary artery disease) Chronic kidney disease, stage IV (severe) 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 Diabetic retinopathy, nonproliferative GERD without esophagitis History of breast cancer Lumpectomy plus radiation Hyperlipidemia Hypertension Hypothyroidism Mild cardiomegaly Mitral stenosis 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 Surgical History (Updated 09/30/20 @ 05:08 by Grecia Valle MD) H/O lumpectomy left breast 1985 History of appendectomy History of lumbar surgery S/P CABG x 4 (1994) Family History Brother Alcohol abuse Heart disease Diabetes Hypertension Kidney disease Myocardial infarction Father Myocardial infarction Hypertension Diabetes Heart disease Stroke, Onset Age: 56 of stroke at age 56 Mother Heart disease Diabetes Gallbladder disease Myocardial infarction Unknown Breast cancer Other Family history non-contributory Social History (Updated 05/03/20 @ 17:05 by Katie Grayson) Smoking Status: Never smoker Second Hand Exposure: No; Do You Dip or Chew Tobacco: No; Tobacco Cessation Education Requested by Patient: No Hx Alcohol Use: No Hx Substance Use: No Preferred Language: Albanian Communication Ability: Effective Visual Impairment: No Limitations Hearing Ability: Normal Flight Follower Required: No Beliefs That Will Affect Care: None marital status: / Current Living Situation: Alone Current Living Situation Comment: alone with indep. living in "[facility]" [facility]. current occupational status: retired How many Children do You have: 7 How many Children do You have Comment: 3 biological and adopted 4 Other Information That Helps Us Care for You: Yes (pt requires more help in cleaning and cooking at home- does not have help.) Feels Safe at Home: Yes Safety Concerns: Feels Safe At This Time Childhood Exposure to Second-Hand Smoke: No caffeine: Yes (Soda occasional intake) during the past year weight has: remained stable Dental Care, Regularly: No Physical Activity Frequency: Daily Seatbelt Use: always Sunscreen Use: No Assistive Devices: Glasses Physical Exam Physical Exam: In general this is a well-developed well-nourished white female in no acute distress. HEENT exam is negative. Neck is supple with full carotid upstrokes. There are no carotid bruits. No jugular venous distension. There is no thyromegaly. Cardiovascular exam reveals a regular rhythm with a normal S1 and S2. A 1/6 basal systolic ejection murmur is noted. No S3 or S4. Chest reveals a well-healed midline scar. Lungs are clear without rales, rhonchi, or wheezes. Abdomen is soft and nontender without bruits. Extremities reveal intact radial artery and posterior tibial pulses bilaterally. There is 1-2+ pretibial edema bilaterally. Results & Data ([facility]) Vital Signs (Past 12 Hours) Vital Signs Temp Pulse Pulse Resp BP BP Pulse Ox 09/30/20 08:03 36.5 C 64 20 159/78 H 94 09/30/20 05:03 36.5 C 70 16 151/81 H 96 09/30/20 05:00 36.5 C 70 17 151/81 H 96 09/30/20 03:58 66 18 185/67 H 97 09/30/20 02:31 71 18 187/95 H 09/30/20 02:00 73 18 175/74 H 97 09/30/20 01:30 73 17 165/85 H 96 09/30/20 01:06 75 23 178/110 H 96 09/30/20 00:26 36.6 C 78 18 191/86 H 97 Laboratory Results CBC notes hemoglobin 9.7, crit 30.2, white count 7.15, and platelet count [id number]. Electrolytes note a sodium of 135, potassium 4.6, chloride 104, bicarb 20, BUN 33, creatinine 2.89, glucose of 288. Initial troponin was 0.271 with a follow-up value of 10.0. Diagnostic Findings EKG notes normal sinus rhythm with a complete right bundle branch block. Chest x-ray notes cardiomegaly and mild congestive failure. PG Care Time/CCT Total # of Minutes Spent Total Time Spent with Patient: Total time spent is greater than 50% in coordination of care (as documented) at patient's floor/unit and/or counseling patient: Coding Level of Care Code 69084 Initial Inpt Care Lvl 3 Diagnoses NSTEMI (non-ST elevated myocardial infarction) I21.4 CAD (coronary artery disease) I25.10 Chronic diastolic CHF (congestive heart failure) I50.32 Hypertension I10
--- NOTE | 2020-09-30 13:44 | Hospitalist Progress Note ---
Date of Service September 30, 2020 Assessment & Plan (1) Stable angina pectoris: Plan: 1. Elevated Troponin - most likely secondary to CHF exacerbation - weight up to 207 lbs from dry weight of [address] Gupta's note in July 2020 - chronically elevated, decreased today at 0.2 from previous 0.3, additionally likely to be elevated given CKD4; trops elevation --> 10 --> 19, yet to peak - mild EKG changes --> RBBB - cardiology consulted --> advises to treat conservatively, no cath at this time, inc. metoprolol succinate (75mg daily), inc. lasix 80mg qam - continue antiplatelet agents [asa, plavix], ranolazine 2. CHF exacerbation - ECHO may 2020 showing EF 60-65% - increased lasix past previous 20 daily to 20 mg po bid --> inc. to 80mg qam - monitor I&O - repeat echo pending Hx CABG, Angina - continue metoprolol, ranolazine, statin DM2 - on 15 u glargine bid, 12 u lantus TID - SSI - a1c AM - BSG elevated on admission due to not having evening dose of glargine at home hypothyroidism - levothyroxine dvt ppx: heparin sq bid fen/gi: carb consistent DM2 code status: DNR/DNI dispo: med/tele (2) Elevated troponin: (3) CHF exacerbation: (4) Chronic kidney disease, stage IV (severe): (5) Hx of CABG: (6) Chronic diastolic CHF (congestive heart failure): (7) Lower extremity edema: (8) LVH (left ventricular hypertrophy): (9) Mitral valve disorder: (10) Ventricular aneurysm: (11) Mitral stenosis: (12) Hypertension: (13) Type 2 diabetes mellitus with complications: (14) History of breast cancer: (15) Hypothyroidism: (16) Hyperlipidemia: (17) GERD without esophagitis: Admission and Anticipated Discharge Date Admission Date: September 30, 2020 Supervising Physician Co-Signing Physician Notes I personally examined the patient and verified all sebastian points of history and exam, discussed case, and agree with decision making with Dr Valle. feeling better chest pain resolved. breathing Ok vitals noted nad heent nc at mmm breathing unlabored no accessory muscles good efort but does have bibasilar rales no rhonchi no wheeze NSTEMI - symptoms now controlled. ongoing med management, appreciate cardiology input as well acute on chronic presumed diastolic chf -awaiting echo. With NSTEMI it could be systolic failure, for now continue to diurese and follow. Otherwise as above. Subjective This morning patient c/o mid sternal chest pressure. Denies SOB, headache, abdominal pain. After receiving nitroglycerin, patient felt no more chest fullness. No other complaints. Review of Systems Review of Systems: All systems reviewed & are unremarkable except as noted in HPI & below Physical Exam Physical Exam: Constitutional: elderly female in no apparent distress, sitting comfortably in bed. Eyes: EOMI, pupils equal and reactive bilaterally, no scleral icterus Cardiac: RRR, no murmurs, gallops or rubs. Normal S1, S2. Mild crackles appreciated in lower lung lobes bilaterally. Pulm: breathing easily on room air, no retractions or nasal flaring Abd: soft, nontender, nondistended, normal bowel sounds, no rebound or guarding Extremities: 1+ peripheral pulses, 2+ pitting edema to knees bilaterally with moderate tenderness, chronic venous stasis changes Neuro: no focal deficits, moving all 4 limbs, A&Ox3 Results & Data Results & Data ([facility]) Vital Signs (Past 12 Hours) Vital Signs Temp Pulse Pulse Resp BP BP Pulse Ox 09/30/20 11:41 36.7 C 77 20 144/76 H 93 09/30/20 08:03 36.5 C 64 20 159/78 H 94 09/30/20 05:03 36.5 C 70 16 151/81 H 96 09/30/20 05:00 36.5 C 70 17 151/81 H 96 09/30/20 03:58 66 18 185/67 H 97 09/30/20 02:31 71 18 187/95 H 09/30/20 02:00 73 18 175/74 H 97 Resident Activity Tracking Resident Involvement: Resident Care Provided Care Provided: Adult Hospital Medicine (1) Hyperlipidemia Hyperlipidemia type: mixed hyperlipidemia Qualified Code(s): E78.2 - Mixed hyperlipidemia (2) Hypothyroidism Hypothyroidism type: acquired Qualified Code(s): E03.9 - Hypothyroidism, unspecified
[2020-09-30] MEDS ORDERED: METOPROLOL TARTRATE 25 MG TAB PO ONE (14:54)
[2020-09-30 14:58] LABS: Partial Thromboplastin Ratio 2.4
[2020-09-30 15:10] LABS: Partial Thromboplastin Time 64.3 Seconds (21.0-31.0)
[2020-09-30] MEDS ORDERED: FUROSEMIDE 40 MG in SYRINGE 0 ML IV ONE (15:15)
[2020-09-30] MEDS: ROSUVASTATIN CALCIUM 20 MG TAB PO SCH (20:36)
[2020-09-30] MEDS: ASPIRIN 81 MG ECTAB PO SCH (20:37)
--- NOTE | 2020-09-30 21:12 | Billing Data ---
Date of Service September 30, 2020 Coding Level of Care Code 06161 Initial Inpt Care Lvl 3
[2020-10-01] MEDS: HEPARIN SODIUM/DEXTROSE 25,000 UNITS/500 ML BAG IV SCH (04:47)
--- NOTE | 2020-10-01 05:42 | Electrocardiogram Report ---
Test Reason : Blood Pressure : / mmHG Vent. Rate : 083 BPM Atrial Rate : 083 BPM P-R Int : 204 ms QRS Dur : 148 ms QT Int : 442 ms P-R-T Axes : 014 115 -11 degrees QTc Int : 519 ms Sinus rhythm Right bundle branch block Left posterior fascicular block Bifascicular block Possible Inferior infarct , age undetermined Cannot rule out Anterior infarct , age undetermined Abnormal ECG When compared with ECG of 07-MAY-2019 06:40, T wave inversion now evident in Inferior leads T wave inversion now evident in Anterior leads Confirmed by Morales Gonzáles ([id number]) on 10/01/2020 5:42:03 AM Referred By: REFERRED SELF Confirmed By:Morales Gonzáles
--- NOTE | 2020-10-01 05:53 | Electrocardiogram Report ---
Test Reason : Blood Pressure : / mmHG Vent. Rate : 060 BPM Atrial Rate : 060 BPM P-R Int : 126 ms QRS Dur : 134 ms QT Int : 504 ms P-R-T Axes : -04 039 018 degrees QTc Int : 504 ms Normal sinus rhythm with sinus arrhythmia Right bundle branch block Possible Inferior infarct (cited on or before 30-SEP-2020) Cannot rule out Anterior infarct (cited on or before 30-SEP-2020) Abnormal ECG When compared with ECG of 30-SEP-2020 00:32, T wave inversion less evident in Inferior leads Confirmed by Morales Gonzáles ([id number]) on 10/01/2020 5:52:56 AM Referred By: REFERRED SELF Confirmed By:Morales Gonzáles
[2020-10-01] MEDS: LEVOTHYROXINE SODIUM 50 MCG TABLET PO SCH (06:06)
[2020-10-01 07:30] LABS: Hematocrit (blood only) 26.8 % (37-47); Hemoglobin 8.8 g/dL (12.0-16.0); Mean Corpuscular Hemoglobin 29.8 pg (25-34); Mean Corpuscular Hgb Conc 32.8 g/dL (32-36); Mean Corpuscular Volume 90.8 fL (80-100); Mean Platelet Volume 10.8 fL (7.4-10.4); Platelet Count 212 K/uL (130-400); RDW Coefficient of Variation 14.2 % (11.5-14.5); Red Blood Count 2.95 M/uL (4.2-5.4); White Blood Count 6.98 K/uL (4.8-10.8)
[2020-10-01 07:50] LABS: Partial Thromboplastin Ratio 4.2
[2020-10-01 07:56] LABS: Partial Thromboplastin Time 109.9 Seconds (21.0-31.0)
[2020-10-01 07:58] LABS: BUN Creatinine Ratio 12.9 (10-20); Calcium 8.9 mg/dl (8.5-10.1); Creatinine Clr Calc Pharmacy 15.7 ml/min; Est GFR (African American) 16.1 ml/min; Est GFR (Non-African American) 13.9 ml/min; Magnesium 2.2 mg/dl (1.8-2.4)
[2020-10-01] MEDS: INSULIN ASPART 100 UNITS/ML 3 ML PEN SC SCH ×4 (08:14→20:27)
[2020-10-01] MEDS: INSULIN GLARGINE SOLOSTAR 100 UNITS/ML 3 ML PEN SQ SCH ×2 (08:17→20:28)
[2020-10-01 08:20] LABS: Troponin I 8.28 ng/ml (0-0.045)
[2020-10-01] MEDS: FAMOTIDINE 10 MG TABLET PO SCH ×2 (08:20→17:46)
[2020-10-01] MEDS: CLOPIDOGREL BISULFATE 75 MG TAB PO SCH (08:20)
[2020-10-01] MEDS: METOPROLOL SUCC 25MG EXT REL TAB PO SCH (08:20)
[2020-10-01] MEDS: FUROSEMIDE 80 MG TAB PO SCH (08:20)
[2020-10-01] MEDS: RANOLAZINE 500 MG ER TAB PO SCH ×2 (08:21→21:11)
[2020-10-01 09:26] LABS: Estimated Average Glucose 157 mg/dl; Hemoglobin A1C 7.1 % (4.5-5.6)
[2020-10-01] MEDS ORDERED: ISOSORBIDE MONONITRATE 20 MG TAB PO SCH (11:15)
--- NOTE | 2020-10-01 12:34 | XCELERA ---
[id number]
[2020-10-01] MEDS: ISOSORBIDE MONO EXTENDED REL 30 MG TABCR PO SCH (12:40)
--- NOTE | 2020-10-01 13:33 | Electrocardiogram Report ---
Test Reason : Blood Pressure : / mmHG Vent. Rate : 058 BPM Atrial Rate : 058 BPM P-R Int : 208 ms QRS Dur : 144 ms QT Int : 512 ms P-R-T Axes : 036 055 083 degrees QTc Int : 502 ms Sinus bradycardia Right bundle branch block Inferior infarct (cited on or before 30-SEP-2020) Abnormal ECG When compared with ECG of 30-SEP-2020 07:44, Minimal criteria for Anterior infarct are no longer Present T wave inversion no longer evident in Inferior leads Nonspecific T wave abnormality now evident in Anterior leads Confirmed by Fredi Gupta ([id number]) on 10/01/2020 1:33:13 PM Referred By: REFERRED SELF Confirmed By:Fredi Gupta
--- NOTE | 2020-10-01 14:27 | Cardiology Progress Note ---
Date of Service October 01, 2020 Assessment & Plan (1) NSTEMI (non-ST elevated myocardial infarction): Plan: - small apical infarction. - troponin peaked at 19.1. - intravenous heparin for another 24 hours. - would favor initiation of Coumadin especially in the face of moderate mitral stenosis. - continue ranolazine, aspirin, metoprolol succinate, and Plavix. - follow conservative medical management. No cardiac catheterization at this time. (2) CAD (coronary artery disease): Plan: - history of 4 vessel bypass in 1994. - history of chronic stable angina pectoris on Ranexa. - continue medical management. (3) Chronic diastolic CHF (congestive heart failure): Plan: - mild CHF on presentation. - Would use intravenous Lasix at 80 mg q.a.m.. - She follows daily weights and sliding-scale diuretics at home. (4) Hypertension: Plan: - adequate control on current regimen. (5) Mitral stenosis: Plan: - moderate mitral stenosis on current echocardiogram. - as above, may be best to start Coumadin. Admission and Anticipated Discharge Date Admission Date: September 30, 2020 Subjective The patient is resting comfortably in bed without complaints of chest pain or dyspnea. She is anxious for hospital discharge. Physical Exam Physical Exam: In general this is a well-developed well-nourished white female in no acute distress. HEENT exam is negative. Neck is supple with full carotid upstrokes. There are no carotid bruits. No jugular venous distension. There is no thyromegaly. Cardiovascular exam reveals a regular rhythm with a normal S1 and S2. A 1/6 basal systolic ejection murmur is noted. No S3 or S4. Chest reveals a well-healed midline scar. Lungs are clear without rales, rhonchi, or wheezes. Abdomen is soft and nontender without bruits. Extremities reveal intact radial artery and posterior tibial pulses bilaterally. There is 1-2+ pretibial edema bilaterally. Results & Data ([facility]) Vital Signs (Past 12 Hours) Vital Signs Temp Pulse Pulse Resp BP Pulse Ox 10/01/20 12:00 36.7 C 77 18 147/77 H 95 10/01/20 07:30 36.5 C 62 18 128/77 97 10/01/20 07:00 52 L 10/01/20 04:19 36.8 C 52 L 18 135/78 94 Diagnostic Findings easement worker notes an occasional PAC. Echocardiogram notes normal left ventricular systolic function and an area of apical akinesis. There is moderate mitral stenosis and mild aortic stenosis. PG Care Time/CCT Total # of Minutes Spent Total Time Spent with Patient: Total time spent is greater than 50% in coordination of care (as documented) at patient's floor/unit and/or counseling patient: Coding Level of Care Code 39904 Subseq Hosp Care Lvl 3 Diagnoses NSTEMI (non-ST elevated myocardial infarction) I21.4 CAD (coronary artery disease) I25.10 Chronic diastolic CHF (congestive heart failure) I50.32 Hypertension I10 Mitral stenosis I05.0
--- NOTE | 2020-10-01 18:18 | Hospitalist Progress Note ---
Date of Service October 01, 2020 Assessment & Plan (1) Stable angina pectoris: Plan: 1. Elevated Troponin - most likely secondary to CHF exacerbation - weight up to 207 lbs from dry weight of [address] Gupta's note in July 2020 - chronically elevated, decreased today at 0.2 from previous 0.3, additionally likely to be elevated given CKD4; trops elevation --> 10 --> 19 ----> 8, peaked - originally mild EKG changes --> RBBB; updated EKG show no more T wave inv ersion in inferior leads, improved - cardiology consulted --> advises to treat conservatively, no cath at this time, inc. metoprolol succinate (75mg daily), inc. lasix 80mg qam - Echo results: EF normal, moderate mitral stenosis, mild aortic stenosis, small area of apical akinesis; cardiology said this echo warrants anticoagulation with warfarin for at least 3 weeks, discussed with patient, patient agrees. - continue ranolazine, aspirin, metoprolol succinate, and Plavix - started nitrate ER 30mg daily 2. CHF exacerbation - ECHO may 2020 showing EF 60-65% - increased lasix past previous 20 daily to 20 mg po bid --> inc. to 80mg qam - monitor I&O - lower legs bilaterally less tender and swollen than yesterday. Hx CABG, Angina - continue metoprolol, ranolazine, statin DM2 - on 15 u glargine bid, 12 u lantus TID - SSI - a1c 7.1 - BSG elevated on admission due to not having evening dose of glargine at home hypothyroidism - levothyroxine dvt ppx: heparin sq bid fen/gi: carb consistent DM2 code status: DNR/DNI dispo: med/tele (2) Elevated troponin: (3) CHF exacerbation: (4) Chronic kidney disease, stage IV (severe): (5) Hx of CABG: (6) Chronic diastolic CHF (congestive heart failure): (7) Lower extremity edema: (8) LVH (left ventricular hypertrophy): (9) Mitral valve disorder: (10) Ventricular aneurysm: (11) Mitral stenosis: (12) Hypertension: (13) Type 2 diabetes mellitus with complications: (14) History of breast cancer: (15) Hypothyroidism: (16) Hyperlipidemia: (17) GERD without esophagitis: Admission and Anticipated Discharge Date Admission Date: September 30, 2020 Supervising Physician Co-Signing Physician Notes I personally examined the patient and verified all sebastian points of history and exam, discussed case, and agree with decision making with Dr Valle. Feels good overall. Chest pain has resolved. No significant dyspnea. She notes that she has not really walked around much yet though, and that is when she is usually had symptoms at home. Case discussed with cardiology, Dr. Gupta reviewed echocardiogram with us as well. vitals noted nad heent nc at mmm breathing unlabored no accessory muscles good effort. Skin without rashes, pallor, icterus. Neuro without focal deficits. NSTEMI - symptoms now controlled. Given high likelihood of diffuse disease, as well as CKD, intervention on coronaries would likely have more risk (precipitating dialysis dependent kidney failure) then benefit (target lesion that would be amenable to percutaneous intervention). Continue med managementescalated metoprolol, will add nitrate. Given apical wall motion abnormality that is concerning for thrombus formationagree with cardiology and initiating anticoagulation. We will start Coumadin. Lovenox for nowDC heparin drip. Continue other med management as above. acute on chronic diastolic chf -doing much better. Switch diuretics to p.o. Follow basic metabolic panel. Otherwise as above. If she continues to do well with med management, is able to walk around without any dyspnea or angina, and her vitals stay stable, hopefully home tomorrow. Subjective The patient is resting comfortably in bed while getting her echo. Denies chest pain and pressure, SOB, and fever. Says her leg swelling has gone down. Review of Systems Review of Systems: All systems reviewed & are unremarkable except as noted in HPI & below Physical Exam Physical Exam: Constitutional: elderly female in no apparent distress, sitting comfortably in bed. Eyes: EOMI, pupils equal and reactive bilaterally, no scleral icterus Cardiac: RRR, no murmurs, gallops or rubs. Normal S1, S2. Mild crackles appreciated in lower lung lobes bilaterally. Pulm: breathing easily on room air, no retractions or nasal flaring Abd: soft, nontender, nondistended, normal bowel sounds, no rebound or guarding Extremities: 1+ peripheral pulses, 2+ pitting edema to knees bilaterally with very mild tenderness, chronic venous stasis changes, less swollen than yesterday Neuro: no focal deficits, moving all 4 limbs, A&Ox3 Results & Data Results & Data ([facility]) Vital Signs (Past 12 Hours) Vital Signs Temp Pulse Pulse Resp BP Pulse Ox 10/01/20 16:00 36.4 C L 63 18 132/69 97 10/01/20 15:00 60 10/01/20 12:00 36.7 C 77 18 147/77 H 95 10/01/20 07:30 36.5 C 62 18 128/77 97 10/01/20 07:00 52 L Resident Activity Tracking Resident Involvement: Resident Care Provided Care Provided: Adult Hospital Medicine (1) Hyperlipidemia Hyperlipidemia type: mixed hyperlipidemia Qualified Code(s): E78.2 - Mixed hyperlipidemia (2) Hypothyroidism Hypothyroidism type: acquired Qualified Code(s): E03.9 - Hypothyroidism, unspecified
--- NOTE | 2020-10-01 18:25 | Billing Data ---
Date of Service October 01, 2020 Coding Level of Care Code 35081 Subseq Hosp Care Lvl 3
[2020-10-01] MEDS ORDERED: ENOXAPARIN 100 MG/1ML SYR SQ SCH (21:00)
[2020-10-01] MEDS: ASPIRIN 81 MG ECTAB PO SCH (21:11)
[2020-10-01] MEDS: ROSUVASTATIN CALCIUM 20 MG TAB PO SCH (21:11)
[2020-10-02] MEDS: LEVOTHYROXINE SODIUM 50 MCG TABLET PO SCH (06:07)
--- NOTE | 2020-10-02 07:08 | Hospitalist Progress Note ---
Date of Service October 02, 2020 Assessment & Plan (1) Stable angina pectoris: Plan: 1. Elevated Troponin secondary to NSTEMI - chronically elevated, additionally likely to be elevated given CKD4; trops elevation --> 10 --> 19 ----> 8 ( 10/01/20) - originally mild EKG changes --> RBBB; updated EKG show no more T wave inversion in inferior leads, improved --> 10/02 RBBB left posterior fascicular block, sinus bradycardia - cardiology consulted --> advises to treat conservatively, no cath at this time, inc. metoprolol succinate (75mg daily), inc. lasix 80mg qam discontinued 10/02 - Echo results: EF normal, moderate mitral stenosis, mild aortic stenosis, small area of apical akinesis; cardiology said this echo warrants anticoagulation with warfarin for at least 3 weeks, discussed with patient, patient agrees. - continue ranolazine, aspirin, metoprolol succinate, and Plavix - started nitrate ER 30mg daily 2. CHF exacerbation - ECHO may 2020 showing EF 60-65%, Echo 10/01 demonstrated new small area of apical akinesis - weight up to 207 lbs from dry weight of [address] Gupta's note in July 2020, currently at 198lbs - increased lasix past previous 20 daily to 20 mg po bid --> inc. to 80mg qam discontinued 10/02 - monitor I&O - lower legs bilaterally less tender and swollen than yesterday. Hx CABG, Angina - continue metoprolol, ranolazine, statin DM2 - on 15 u glargine bid, 12 u lantus TID - SSI - a1c 7.1 - BSG elevated on admission due to not having evening dose of glargine at home hypothyroidism - levothyroxine dvt ppx: heparin sq bid fen/gi: carb consistent DM2 code status: DNR/DNI dispo: med/tele (2) Elevated troponin: (3) CHF exacerbation: (4) Chronic kidney disease, stage IV (severe): (5) Hx of CABG: (6) Chronic diastolic CHF (congestive heart failure): (7) Lower extremity edema: (8) LVH (left ventricular hypertrophy): (9) Mitral valve disorder: (10) Ventricular aneurysm: (11) Mitral stenosis: (12) Hypertension: (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 Appetite well voiding well passing stool currently not in pain. Telemetry noted sinus bradycardia last night 40's-50's. She has difficulty remembering to take her medication, care management is arranging for a home health nurse to assist. Patient lives alone uses walker with seat, daughter lives next door. Review of Systems Review of Systems: Positive constipation, chronic Negative fever chills Negative headache dizziness Negative chest pain palpitations SOB Negative nausea vomitting diarrhea Negative numbness tingling rash swelling Physical Exam Physical Exam: General: Well appearing, age appropriate Heart: RRR, +S1 S2, no murmurs/gallops/rubs Lungs: low inspiratory effort, no wheezes/rales/rhonchi Abd: soft, NT/ND, +BS Extremities: +2 pitting edema b/l usp up to knee, minor erythema and healing excoriations on left leg, no rashes Results & Data Results & Data ([facility]) Vital Signs (Past 12 Hours) Vital Signs Temp Pulse Pulse Resp BP Pulse Ox 10/02/20 02:45 36.6 C 73 18 134/79 95 10/02/20 01:52 53 L 10/01/20 23:31 36.4 C L 65 18 110/68 96 10/01/20 19:48 36.6 C 57 L 18 152/78 H 97 Laboratory Results 10/02/20 10/02/20 10/02/20 Range/Units 07:34 06:36 06:36 WBC (4.8-10.8) K/uL RBC (4.2-5.4) M/uL Hgb (12.0-16.0) g/dL Hct (37-47) % MCV (80-100) fL MCH (25-34) pg MCHC (32-36) g/dL RDW Std Deviation (36.4-46.3) fL RDW Coeff of Shelli (11.5-14.5) % Plt Count (130-400) K/uL MPV (7.4-10.4) fL Immature Gran % (Auto) % Neut % (Auto) % Lymph % (Auto) % [place] % (Auto) % Eos % (Auto) % Baso % (Auto) % Neut # (Auto) (1.4-6.5) K/uL Lymph # (Auto) (1.2-3.4) K/uL [place] # (Auto) (0.11-0.59) K/uL Eos # (Auto) (0-0.5) K/uL Baso # (Auto) (0-0.2) K/uL Immature Gran # (Auto) (0.00-0.02) K/uL PT 10.7 (9.0-12.0) Seconds INR 1.1 (0.9-1.1) Sodium 135 L (136-145) mmol/L Potassium 4.1 (3.5-5.1) mmol/L Chloride 101 (98-107) mmol/L Carbon Dioxide 28 (21-32) mmol/L Anion Gap 6.0 (3-11) BUN 47 H (7-18) mg/dl Creatinine 3.27 H (0.6-1.2) mg/dl Est Cr Clr Drug Dosing 14.6 ml/min Est GFR ( Amer) 14.7 ml/min Est GFR (Non-Af Amer) 12.7 ml/min BUN/Creatinine Ratio 14.3 (10-20) Glucose 92 (70-99) mg/dl POC Glucose 103 H (70-99) mg/dl Calcium 8.6 (8.5-10.1) mg/dl 10/02/20 10/01/20 10/01/20 Range/Units 06:36 20:05 16:51 WBC 5.84 (4.8-10.8) K/uL RBC 2.92 L (4.2-5.4) M/uL Hgb 8.6 L (12.0-16.0) g/dL Hct 26.2 L (37-47) % MCV 89.7 (80-100) fL MCH 29.5 (25-34) pg MCHC 32.8 (32-36) g/dL RDW Std Deviation 46.4 H (36.4-46.3) fL RDW Coeff of Shelli 14.0 (11.5-14.5) % Plt Count 202 (130-400) K/uL MPV 10.6 H (7.4-10.4) fL Immature Gran % (Auto) 0.7 % Neut % (Auto) 47.9 % Lymph % (Auto) 35.3 % [place] % (Auto) 10.8 % Eos % (Auto) 5.1 % Baso % (Auto) 0.2 % Neut # (Auto) 2.80 (1.4-6.5) K/uL Lymph # (Auto) 2.06 (1.2-3.4) K/uL [place] # (Auto) 0.63 H (0.11-0.59) K/uL Eos # (Auto) 0.30 (0-0.5) K/uL Baso # (Auto) 0.01 (0-0.2) K/uL Immature Gran # (Auto) 0.04 H (0.00-0.02) K/uL PT (9.0-12.0) Seconds INR (0.9-1.1) Sodium (136-145) mmol/L Potassium (3.5-5.1) mmol/L Chloride (98-107) mmol/L Carbon Dioxide (21-32) mmol/L Anion Gap (3-11) BUN (7-18) mg/dl Creatinine (0.6-1.2) mg/dl Est Cr Clr Drug Dosing ml/min Est GFR ( Amer) ml/min Est GFR (Non-Af Amer) ml/min BUN/Creatinine Ratio (10-20) Glucose (70-99) mg/dl POC Glucose 166 H 166 H (70-99) mg/dl Calcium (8.5-10.1) mg/dl 10/01/ Range/Units 11:29 WBC (4.8-10.8) K/uL RBC (4.2-5.4) M/uL Hgb (12.0-16.0) g/dL Hct (37-47) % MCV (80-100) fL MCH (25-34) pg MCHC (32-36) g/dL RDW Std Deviation (36.4-46.3) fL RDW Coeff of Shelli (11.5-14.5) % Plt Count (130-400) K/uL MPV (7.4-10.4) fL Immature Gran % (Auto) % Neut % (Auto) % Lymph % (Auto) % [place] % (Auto) % Eos % (Auto) % Baso % (Auto) % Neut # (Auto) (1.4-6.5) K/uL Lymph # (Auto) (1.2-3.4) K/uL [place] # (Auto) (0.11-0.59) K/uL Eos # (Auto) (0-0.5) K/uL Baso # (Auto) (0-0.2) K/uL Immature Gran # (Auto) (0.00-0.02) K/uL PT (9.0-12.0) Seconds INR (0.9-1.1) Sodium (136-145) mmol/L Potassium (3.5-5.1) mmol/L Chloride (98-107) mmol/L Carbon Dioxide (21-32) mmol/L Anion Gap (3-11) BUN (7-18) mg/dl Creatinine (0.6-1.2) mg/dl Est Cr Clr Drug Dosing ml/min Est GFR ( Amer) ml/min Est GFR (Non-Af Amer) ml/min BUN/Creatinine Ratio (10-20) Glucose (70-99) mg/dl POC Glucose 158 H (70-99) mg/dl Calcium (8.5-10.1) mg/dl Medications Administered Current Inpatient Medications Acetaminophen (Acetaminophen 325 Mg Tab) 650 mg PO Q4H PRN PRN Reason: Pain or Fever Stop: 10/30/20 04:59 Aspirin (Aspirin 81 Mg Ectab) 81 mg PO HS ADE Stop: 10/30/20 20:59 Last Admin: 10/01/20 21:11 Dose: 81 mg Documented by: Clopidogrel Bisulfate (Clopidogrel Bisulfate 75 Mg Tab) 75 mg PO DAILY ADE Stop: 10/30/20 08:59 Last Admin: 10/02/20 08:35 Dose: 75 mg Documented by: Dextrose (Dextrose 50% 50 Ml Syringe) 25 - 50 ml IV UD PRN; Protocol PRN Reason: Hypoglycemia Protocol Stop: 10/30/20 05:14 Enoxaparin Sodium (Enoxaparin 100 Mg/1ml Syr) 90 mg SQ HS ADE Stop: 10/31/20 20:59 Last Admin: 10/01/20 20:28 Dose: 90 mg Documented by: Famotidine (Famotidine 10 Mg Tablet) 10 mg PO BIDM [facility] Stop: 10/30/20 07:59 Last Admin: 10/02/20 08:08 Dose: 10 mg Documented by: Glucagon (Glucagon For Inj 1 Mg Vial) 1 mg IM UD PRN; Protocol PRN Reason: Hypoglycemia Protocol Stop: 10/30/20 05:14 Glucose (Glucose 40% Gel 15 Gm Tube) 15 - 30 gm PO UD PRN; Protocol PRN Reason: Hypoglycemia Protocol Stop: 10/30/20 05:14 Glucose (Glucose 10 Tabs/Tube) 4 - 8 tabs PO UD PRN; Protocol PRN Reason: Hypoglycemia Protocol Stop: 10/30/20 05:14 Insulin Aspart (Insulin Aspart 100 Units/Ml 3 Ml Pen) 0 units SC ACHS [facility] Stop: 10/30/20 07:29 Last Admin: 10/02/20 08:04 Dose: 3 units Documented by: Insulin Glargine (Insulin Glargine Solostar 100 Units/Ml 3 Ml Pen) 15 units SQ BID [facility] Stop: 10/30/20 08:59 Last Admin: 10/02/20 08:04 Dose: 15 units Documented by: Isosorbide Mononitrate (Isosorbide [place] Extended Rel 30 Mg Tabcr) 30 mg PO [facility] Stop: 10/31/20 12:14 Last Admin: 10/02/20 08:36 Dose: 30 mg Documented by: Levothyroxine Sodium (Levothyroxine Sodium 50 Mcg Tablet) 50 mcg PO DAILYBB [facility] Stop: 10/30/20 06:29 Last Admin: 10/02/20 06:07 Dose: 50 mcg Documented by: Magnesium Hydroxide (Magnesium Hydroxide Susp 30 Ml Udc) 30 ml PO Q12H PRN PRN Reason: Constipation Stop: 10/30/20 04:59 Metoprolol Succinate (Metoprolol Succ 25mg Ext Rel Tab) [facility] [place] Stop: 10/31/20 08:59 Last Admin: 10/02/20 08:36 Dose: 75 mg Documented by: Miscellaneous (Carbohydrates For Hypoglycemia ) 15 - 30 gm PO UD PRN PRN Reason: Hypoglycemia Treatment Stop: 10/30/20 05:14 Morphine Sulfate (Morphine Sulfate 2 Mg/Ml [place]) 2 mg IV Q30M PRN PRN Reason: Chest Pain Stop: 10/14/20 04:59 Nitroglycerin (Nitroglycerin Sl 0.4 Mg/Tab Tab) 0.4 mg SL UD PRN PRN Reason: Chest Pain Stop: 10/30/20 04:59 Ondansetron HCl (Ondansetron Inj 2 Mg/Ml 2 Ml Vial) 4 mg IV Q6H PRN PRN Reason: Nausea Stop: 10/30/20 04:59 Ranolazine (Ranolazine 500 Mg Er Tab) 1,000 mg PO BID ADE Stop: 10/30/20 08:59 Last Admin: 10/02/20 08:08 Dose: 1,000 mg Documented by: Rosuvastatin Calcium (Rosuvastatin Calcium 20 Mg Tab) 40 mg PO HS [facility] Stop: 10/30/20 20:59 Last Admin: 10/01/20 21:11 Dose: 40 mg Documented by: Warfarin Sodium (Warfarin Sod 5 Mg Tab) 5 mg PO DAILY@1600 [facility] Stop: 11/01/20 15:59 Resident Activity Tracking Resident Involvement: Resident Care Provided Care Provided: Adult Hospital Medicine (1) Hypothyroidism Hypothyroidism type: acquired Qualified Code(s): E03.9 - Hypothyroidism, unspecified (2) Hyperlipidemia Hyperlipidemia type: mixed hyperlipidemia Qualified Code(s): E78.2 - Mixed hyperlipidemia
[2020-10-02 07:14] LABS: Basophils # (auto) 0.01 K/uL (0-0.2); Basophils % (auto) 0.2 %; Eosinophils % (auto) 5.1 %; Hematocrit (blood only) 26.2 % (37-47); Hemoglobin 8.6 g/dL (12.0-16.0); Immature Granulocytes # (auto) 0.04 K/uL (0.00-0.02); Immature Granulocytes % (auto) 0.7 %; Lymphocytes # (auto) 2.06 K/uL (1.2-3.4); Lymphocytes % (auto) 35.3 %; Mean Corpuscular Hemoglobin 29.5 pg (25-34); Mean Corpuscular Hgb Conc 32.8 g/dL (32-36); Mean Corpuscular Volume 89.7 fL (80-100); Mean Platelet Volume 10.6 fL (7.4-10.4); Monocytes # (auto) 0.63 K/uL (0.11-0.59); Monocytes % (auto) 10.8 %; Neutrophils % (auto) 47.9 %; Platelet Count 202 K/uL (130-400); RDW Standard Deviation 46.4 fL (36.4-46.3); Red Blood Count 2.92 M/uL (4.2-5.4); White Blood Count 5.84 K/uL (4.8-10.8)
[2020-10-02 07:30] LABS: INR 1.1 (0.9-1.1); Prothrombin Time 10.7 Seconds (9.0-12.0)
[2020-10-02 07:35] LABS: BUN Creatinine Ratio 14.3 (10-20); Calcium 8.6 mg/dl (8.5-10.1); Creatinine Clr Calc Pharmacy 14.6 ml/min; Est GFR (African American) 14.7 ml/min; Est GFR (Non-African American) 12.7 ml/min; Potassium 4.1 mmol/L (3.5-5.1)
[2020-10-02] MEDS: INSULIN GLARGINE SOLOSTAR 100 UNITS/ML 3 ML PEN SQ SCH (08:04)
[2020-10-02] MEDS: INSULIN ASPART 100 UNITS/ML 3 ML PEN SC SCH ×2 (08:04→11:55)
[2020-10-02] MEDS: RANOLAZINE 500 MG ER TAB PO SCH (08:08)
[2020-10-02] MEDS: FAMOTIDINE 10 MG TABLET PO SCH ×2 (08:08→15:49)
[2020-10-02] MEDS: FUROSEMIDE 80 MG TAB PO SCH (08:35)
[2020-10-02] MEDS: CLOPIDOGREL BISULFATE 75 MG TAB PO SCH (08:35)
[2020-10-02] MEDS: ISOSORBIDE MONO EXTENDED REL 30 MG TABCR PO SCH (08:36)
[2020-10-02] MEDS: METOPROLOL SUCC 25MG EXT REL TAB PO SCH (08:36)
--- NOTE | 2020-10-02 15:33 | Discharge Summary ---
Date of Service October 02, 2020 Admission HPI Per Admitting Provider 80 yo F with extensive cardiac hx including HFpEF, LVH, ventricular aneurysm, CABGx4, chronic CAD with angina, DM2, CKD4 in ER today for worsening symptoms of angina. She states that 2 pm today she was trying to casing crew her kitchen to make chili and found that she was too weak to even stand at the stove. Normally she is able to walk around her apartment without issue, but has difficulty sweeping or cleaning. Not being able to stand and cook was odd for her. She describes a chest pressure in her central chest that radiated to her back. She said that she normally takes a nitro tab and it makes that kind of pain go away but this time it didn't go away. She notes that she's also gained about 20 pounds during the pandemic and feels that much of it is water weight. She denies any shortness of breath at rest. No new numbness/tingling, lightheadedness, nausea, vomiting. Admission Exam Per Admitting Provider Constitutional: elderly female in no apparent distress, sitting comfortably in bed. Eyes: EOMI, pupils equal and reactive bilaterally, no scleral icterus Cardiac: RRR, no murmurs, gallops or rubs. Normal S1, S2 Pulm: poor inspiratory effort, breathing easily on room air, no retractions or nasal flaring Abd: soft, nontender, nondistended, normal bowel sounds, no rebound or guarding Extremities: 1+ peripheral pulses, 2+ pitting edema to knees bilaterally, chronic venous stasis changes Neuro: no focal deficits, moving all 4 limbs, A&Ox3 Principal Diagnosis NSTEMI with CHF Exacerbation Discharge Exam Constitutional well developed, + obese, cooperative and comfortable Respiratory able to speak in complete sentences; no respiratory distress, no cough and no audible wheezes Auscultation: no crackles, no rales, no rhonchi and no wheezes Poor inspiratory effort Cardiovascular Rate/Rhythm: regular rate and regular rhythm Heart Sounds: normal S1 and normal S2; no gallop, no murmur and no cardiac rub Gastrointestinal (Abdomen) normal bowel sounds, soft, nontender, no hepatosplenomegaly Musculoskeletal +2 pitting edema in LE b/l Discharge Data Allergies Allergy/AdvReac Type Severity Reaction Status Date / Time risperidone [From Risperdal] Allergy Unknown ON [facility] Verified 09/30/20 00:46 LIST Consultations 09/30/20 02:16 ED Decision to Admit Stat 09/30/20 05:00 Consult Cardiology Routine Ordered Studies Laboratory Results WBC 5.84 K/uL (4.8-10.8) 10/02/20 06:36 RBC 2.92 M/uL (4.2-5.4) L 10/02/20 06:36 Hgb 8.6 g/dL (12.0-16.0) L 10/02/20 06:36 Hct 26.2 % (37-47) L 10/02/20 06:36 MCV 89.7 fL (80-100) 10/02/20 06:36 MCH 29.5 pg (25-34) 10/02/20 06:36 MCHC 32.8 g/dL (32-36) 10/02/20 06:36 RDW Std Deviation 46.4 fL (36.4-46.3) H 10/02/20 06:36 RDW Coeff of Shelli 14.0 % (11.5-14.5) 10/02/20 06:36 Plt Count 202 K/uL (130-400) 10/02/20 06:36 MPV 10.6 fL (7.4-10.4) H 10/02/20 06:36 Immature Gran % (Auto) 0.7 % 10/02/20 06:36 Neut % (Auto) 47.9 % 10/02/20 06:36 Lymph % (Auto) 35.3 % 10/02/20 06:36 Kidder % (Auto) 10.8 % 10/02/20 06:36 Eos % (Auto) 5.1 % 10/02/20 06:36 Baso % (Auto) 0.2 % 10/02/20 06:36 Neut # (Auto) 2.80 K/uL (1.4-6.5) 10/02/20 06:36 Lymph # (Auto) 2.06 K/uL (1.2-3.4) 10/02/20 06:36 Kidder # (Auto) 0.63 K/uL (0.11-0.59) H 10/02/20 06:36 Eos # (Auto) 0.30 K/uL (0-0.5) 10/02/20 06:36 Baso # (Auto) 0.01 K/uL (0-0.2) 10/02/20 06:36 Immature Gran # (Auto) 0.04 K/uL (0.00-0.02) H 10/02/20 06:36 PT 10.7 Seconds (9.0-12.0) 10/02/20 06:36 INR 1.1 (0.9-1.1) 10/02/20 06:36 APTT 109.9 Seconds (21.0-31.0) H* 10/01/20 06:40 PTT Ratio 4.2 10/01/20 06:40 Sodium 135 mmol/L (136-145) L 10/02/20 06:36 Potassium 4.1 mmol/L (3.5-5.1) 10/02/20 06:36 Chloride 101 mmol/L (98-107) 10/02/20 06:36 Carbon Dioxide 28 mmol/L (21-32) 10/02/20 06:36 Anion Gap 6.0 (3-11) 10/02/20 06:36 BUN 47 mg/dl (7-18) H 10/02/20 06:36 Creatinine 3.27 mg/dl (0.6-1.2) H 10/02/20 06:36 Est Cr Clr Drug Dosing 14.6 ml/min 10/02/20 06:36 Est GFR ( Amer) 14.7 ml/min 10/02/20 06:36 Est GFR (Non-Af Amer) 12.7 ml/min 10/02/20 06:36 BUN/Creatinine Ratio 14.3 (10-20) 10/02/20 06:36 Glucose 92 mg/dl (70-99) 10/02/20 06:36 POC Glucose 189 mg/dl (70-99) H 10/02/20 11:43 Estimat Average Glucose 157 mg/dl 10/01/20 06:40 Hemoglobin A1c 7.1 % (4.5-5.6) H 10/01/20 06:40 Calcium 8.6 mg/dl (8.5-10.1) 10/02/20 06:36 Magnesium 2.2 mg/dl (1.8-2.4) 10/01/20 06:40 Total Bilirubin 0.5 mg/dl (0.2-1) 09/30/20 00:52 AST 16 U/L (15-37) 09/30/20 00:52 ALT 12 U/L (12-78) 09/30/20 00:52 Alkaline Phosphatase 61 U/L (45-117) 09/30/20 00:52 Troponin I 8.280 ng/ml (0-0.045) H* 10/01/20 06:40 NT-Pro-B Natriuret Pep 81410 pg/ml (0-1800) H 10/01/20 06:40 Total Protein 8.0 gm/dl (6.4-8.2) 09/30/20 00:52 Albumin 3.1 gm/dl (3.4-5.0) L 09/30/20 00:52 Globulin 4.9 gm/dl (2.5-4.0) H 09/30/20 00:52 Albumin/Globulin Ratio 0.6 (0.9-2) L 09/30/20 00:52 Lipase 63 U/L (73-393) L 09/30/20 00:52 COVID-19 Eval Order Covid19 at [facility] 09/30/20 01:03 SARS-CoV-2 (PCR) NEGATIVE (Negative) 09/30/20 01:03 Impressions Chest X-Ray 09/30/20 07:51 XR chest 1V portable HISTORY: elevated troponin COMPARISON: Chest 09/30/2020. FINDINGS: No pneumothorax. No pleural effusions. The heart remains mildly enlarged. Diffuse interstitial thickening is again noted. This likely represents mild congestive change. No new focal lung consolidations. There are poststernotomy changes. IMPRESSION: No change in the cardiomegaly and diffuse interstitial thickening suggestive of mild congestive change. ACT 112: Negative or not required by law. Electronically signed by: Cesar Morrison M.D. 09/30/2020 8:03 AM Hospital Course (1) Stable angina pectoris: 1. Elevated Troponin secondary to NSTEMI Patient admitted to hospital with chest tightness, found to have elevated troponins on 09/30, EKG changes showed RBBB with T wave inversions that later resolved, latest EKG showed RBBB left posterior fascicular block, sinus bradycardia. Cardiology was consulted, advised to treat conservatively, no cath at this time, inc. metoprolol succinate (75mg daily), inc. lasix 80mg qam. Echo was obtained showing normal EF, moderate mitral stenosis, mild aortic stenosis, small area of apical akinesis; cardiology said this echo warrants anticoagulation with warfarin for at least 3 weeks. Patient was also started on isosorbid mononitrate ER 30mg daily. Lasix 80mg was discontinued, patient is to resume their home dose of Lasix 20mg daily. Patient is to continue their home dose of ranolazine, aspirin, and Plavix, and to follow up with cardiology in outpatient in 1 week. 2. CHF exacerbation Patient presented with minor rales and leg swelling on admission, weight measured at 201lbs compared to 'dry weight' 195 lbs per cardiology note July 2020. Lasix was increased from 20mg daily to 80mg qam, discontinued on 10/02. ECHO may 2020 showing EF 60-65%, Echo 10/01 demonstrated new small area of apical akinesis. Patient symptoms improved, rales resolved leg swelling and tenderness reduced. Patient to continue Lasix 20mg daily at home. They are to repeat BMP on wednesday 10/04. 3. Moderate Mitral Valve Stenosis Patient found on echo to have moderate mitral valve stenosis, cardiology recommended warfarin for 3 weeks. Patient was started on 5mg warfarin daily. They are to repeat PT/INR labs on wednesday 10/04. 3. Hx CABG, Angina Patient is to continue their home dose of ranolazine, rosuvastatin 4. DM2 Patient HA1c on admission was 7.1, currently on 15 u glargine bid, 12 u lantus TID. Patient to continue their home insulin regime. 5. Hypothyroidism Patient to continue their home dose of levothyroxine. (2) Elevated troponin: (3) CHF exacerbation: (4) Chronic kidney disease, stage IV (severe): (5) Hx of CABG: (6) Chronic diastolic CHF (congestive heart failure): (7) Lower extremity edema: (8) LVH (left ventricular hypertrophy): (9) Mitral valve disorder: (10) Ventricular aneurysm: (11) Mitral stenosis: (12) Hypertension: (13) Type 2 diabetes mellitus with complications: (14) History of breast cancer: (15) Hypothyroidism: (16) Hyperlipidemia: (17) GERD without esophagitis: Total Time Total Time Spent Total Time Spent (In Minutes): Less than 30 Discharge Plan Discharge Items Patient Disposition: Home - Home Health Services Reason For Visit: NSTEMI Discharge Diagnosis: NSTEMI with CHF Exacerbation Activity: Resume your previous activity Non-emergency contact: Primary Care Provider Call non-emergency contact if: you have any medication questions and your symptoms worsen Follow-up/Referrals: Heevr Christianson CRNP [Primary Care Provider] - 10/12/20 8:15 am Mckenna Mcneal PA-C [Physician Sodder] - 10/08/20 10:30 am (Congestive Heart Failure Program Appointment Information Early follow up is essential to managing your heart failure. An appointment has been scheduled for you with the [facility] within 7 days of discharge. Anticipate this visit to be 30-60 minutes long. Please expect a mobile game engineer phone call from one of our nurses approximately 48 hours from discharge. They will also be placing an order for lab work to be completed 1-2 days prior to your heart failure follow up appointment. Please be sure to have this done so we can go over the results when you come in. Office Location The cardiology office building is located in front of the hospital at [address]. Bring the following with you to your follow-up doctor appointments: Please bring your daily weight log any discharge paperwork all of your medication bottles with you to this visit. ) Diet: Carb Consistent or DM2 and Heart Healthy Ambulatory Orders: Basic Metabolic Panel (Routine) Timeframe: 2 Days Facility: [facility] - Location: Administration / Operations Ordered By: Flavia Carpenter Prothrombin Time INR (Routine) Timeframe: 2 Days Location: Determined by Patient Ordered By: Flavia Carpenter Addtl Attending Provider Instructions: You were admitted to the hospital for NSTEMI with CHF Exacerbation. This means that some of your coronary arteries, the ones that supply blood to your heart muscle, became blocked. Your heart was also not pumping blood as efficiently, resulting in fluid build-up in your legs and your lungs. After imaging your heart, we found that the tip of your heart is no longer moving as much. You were also found to have some stiff heart valves. Your heart was found to be pumping a normal amount of blood. You were treated with isosorbide mononitrate, warfarin, and an increase of your metoprolol and furosemide. The metoprolol lets your heart beat slower so that it is less likely to overexert itself, while the isosorbide mononitrate helps widen your coronary arteries and increase blood flow to your heart. The furosemide is a water pill that lets you pee out the extra water that accumulated in your legs. The warfarin is a blood thinner to prevent any blood clots from forming due to your stiffened heart valve. You stated that you had difficulty managing your medication at home. Case Management has helped you arrange nursing medication assistance with [facility]. They will begin care on Sunday. A discharge summary will be sent to your primary care physician to ensure continuity of care. Please bring this discharge summary with you to your next office appointment so that your provider can review it at that time. Follow-up appointments: Make a follow-up appointment with your PCP within the next week. It is very important that you follow up with them shortly after discharge from the hospital. We have requested a follow-up appointment with your cleaner furniture within one week of discharge on 10/08/20. Please call their office if you do not hear from them. Please come in for lab work on Sunday10/04/20 to check on the effect of your blood thinner and your water pill. Keep all your follow-up appointments as already scheduled. If you cannot make an appointment, notify your provider. Medications: Your medication list has been reviewed and reconciled upon discharge to ensure accuracy and continuity of care. An updated list of all your medications is included with your hospital discharge paperwork. Please review this list closely, and make note of any changes. * We sent a new medication called Isosorbide Mononitrate to your pharmacy. Take Isosorbide Mononitrate 30mg one tablet daily. * We sent a new medication called Coumadin to your pharmacy. Take Coumadin 5mg one tablet daily. * We increased your medication called Metoprolol Succinate from 50mg to 75mg, please take Metoprolol Succinate 25mg three tablets daily. * Please resume your Furosemide at 20mg one tablet daily. * All your other medications are to be taken as before. Take your medications as instructed; do not skip a dose of your medicines. Make sure all of your doctors know every medicine you are taking (including tzhz-nwi-mkbmzqt medicines, vitamins, and supplements). Call your primary care provider before taking any new medicines (including unil-dsp-ltsrdrn medicines, vitamins, and supplements), because some of these may interact with your current medications, or may make your symptoms worse. Tell your primary care provider if you cannot afford your medications. CONTACT YOUR PRIMARY CARE PROVIDER if you experience any of the following: Increase in leg swelling Difficulty following your treatment plan, or difficulty taking medications CALL 911 OR GO TO THE EMERGENCY DEPARTMENT if you experience any of the following: Sudden, severe abdominal pain or nausea/vomiting Severe chest pain, or chest pain that radiates (moves) to your jaw or arm Sudden, severe shortness of breath or difficulty breathing Thank you for allowing us to participate in your care. Addtl Wireless Manager Provider Instructions: Call your Primary Care doctor if any of the following symptoms or problems start or get worse: * Shortness of breath or difficulty breathing * Wake up at night short of breath * Chest pain * Cough * Swelling of your hands, feet, or legs * More fatigued or tired with your normal activity * Palpitations - sudden fast heart beats WEIGHT * Weigh yourself every morning after using the bathroom. * Use the same scale. * Wear the same amount of clothing. * Write your weight down on a chart. * Call your Primary Care doctor if you gain more than 2-3 pounds in 1-2 days. MEDICATIONS * Use this discharge instruction sheet for medication instructions. * Take your medications at the time your doctor ordered. * Do not skip a dose of your medicines. * If you miss a dose of medicine, take it as soon as possible, but DO NOT DOUBLE A DOSE. * Read your medicine information when you get home. * Know all of the side effects of your medicine. If in doubt, ask your pharmacist * Call your Primary Care doctor's office if you have any side effects. * Be sure all of your doctors know what medicine and herbs you take (including cold, flu, and herbal medicine). Take the following with you to your follow-up doctor appointments: * Weight Chart * Medication List * List of questions Do not drink excessive alcohol, beer or wine. Pending Studies at Discharge: Yes Studies:: INR for warfarin usage, to be performed 10/04/20 BMP for furosemide usage with CKD stage 4, to be performed 10/04/20 Stand-Alone Forms: My Thingies, Smoking Cessation Medications and DC Order Prescriptions: New isosorbide mononitrate 30 mg Tablet Extended Release 24 Hr 30 mg PO QAM 30 Days Qty: 30 RF: 0 warfarin 5 mg Tablet 5 mg PO DAILY@1600 30 Days Qty: 30 RF: 0 metoprolol succinate 25 mg Tablet Extended Release 24 Hr 75 mg PO QAM 30 Days Qty: 90 RF: 0 Continued (DME) pen needle, diabetic [BD Ultra-Fine Karolina Pen Needle] 32 gauge x 5/32" needle See Dose Instructions .ROUTE .MEDSUPPLY Qty: 600 RF: 1 insulin lispro [Humalog KwikPen Insulin] 100 unit/mL insulin pen 12 units SUBCUT TID Qty: 3 RF: 5 (DME) Contour Next Test Strips Strip See Dose Instructions .ROUTE .MEDSUPPLY Qty: 100 RF: 11 clopidogrel [Plavix] 75 mg tablet 75 mg PO DAILY Qty: 90 RF: 3 rosuvastatin 40 mg tablet 40 mg PO HS Qty: 90 RF: 3 (DME) blood-glucose meter [Contour Next One Meter] misc See Dose Instructions .ROUTE .MEDSUPPLY Qty: 1 RF: 0 Lantus Solostar U-100 Insulin 100 unit/mL (3 mL) insulin pen 15 unit subcut BID Qty: 3 RF: 3 nitroglycerin [Nitrostat] 0.4 mg tablet, sublingual 0.4 mg sublingual UD PRN (Reason: chest pain) Qty: 25 RF: 3 ranolazine 1,000 mg tablet extended release 12 hr 1,000 mg PO BID Qty: 180 RF: 3 furosemide [Lasix] 20 mg tablet 20 mg PO QAM Qty: 90 RF: 3 famotidine 10 mg Tablet 10 mg PO BIDM RF: 0 omega 8-qaj-gfi-fish oil [Fish Oil] 1,000 mg (120 mg-180 mg) Capsule 1,000 mg PO BIDM RF: 0 levothyroxine 50 mcg tablet 50 mcg PO DAILYBB RF: 0 aspirin [Aspirin Low Dose] 81 mg Tablet,Delayed Release (Dr/Ec) 81 mg PO HS RF: 0 Discontinued metoprolol succinate 50 mg tablet extended release 24 hr 50 mg PO HS Qty: 90 RF: 1 Discharge Orders: Discharge Order (Routine); Ordered 10/02/20 Ordered By: Flavia Carpenter Admission Data Admit Date/Time: 09/30/20 02:48 Attending Provider: Zia Brewer Admit Provider: Grecia Valle Primary Care Provider: Hever Christianson Other Providers: Jorge Metcalf ; Fredi Gupta ; Raul Castaneda [facility] Other Interventions: Discharge Summary Assessment (RN) Last Done: 10/02/20 15:09 Supervising Physician Co-Signing Physician Notes I personally examined the patient and verified all sebatsian points of history and exam, discussed case, and agree with decision making with Dr Carpenter Feeling good. Whenever I first see her, she has not walked around since I saw her yesterday although going to and from the bathroom. She had still not had any significant chest pain or shortness of breath. Later asked nursing to help her walk, I was informed that she did quite well without any dyspnea, a degree of fatigue, but after having walked an entire lap around the unit. vitals noted nad heent nc at mmm breathing unlabored no accessory muscles good effort. Skin without rashes, pallor, icterus. Neuro without focal deficits. NSTEMI - symptoms now controlled. Given high likelihood of diffuse disease, as well as CKD, intervention on coronaries would likely have more risk (precipitating dialysis dependent kidney failure) then benefit (target lesion that would be amenable to percutaneous intervention). Continue med managementescalated metoprolol, long-acting nitrate, in addition to her home meds. Given apical wall motion abnormality that is concerning for thrombus formationagree with cardiology and initiating anticoagulation. Started on Coumadin. Next INR on 10/04. acute on chronic diastolic chf -doing much better. Home on Lasixright now she is a bit dry, but risk-benefit would favor continuing the diuretics even at a lower dosebasic metabolic panel on 10/04. Stable for home, otherwise as above. Resident Activity Tracking Resident Involvement: Resident Care Provided Care Provided: Adult Hospital Medicine Home Health Attestation I certify that this patient is under my care and that I, or a physicians recycling assistant working with me, had a face to-face encounter that meets the home health xhjy-sf-[id number] encounter requirements with this patient. The encounter with the patient was in whole, or in part, for the following medical condition, which is the primary reason for home health care (list medical condition): NSTEMI, CHF I certify that, based on my findings, the following services are medically necessary home health services: Nursing assistance with medication My clinical findings support the need for the above services because: Skilled Nsg Assessment Skilled Nsg Instruction New Medications Skilled Nsg Assess Pt Illness, Disease and Sx Monitoring Further, I certify that my clinical findings support that this patient is ho mebound (i.e. absences from home require considerable and taxing effort and are for medical reasons or quaker services or infrequently or of short duration when for other reasons) because: Patient ambulates with walker, lives alone, does not drive Certification for Home Health Services: Based on the above findings, I certify that this patient is confined to the home and needs intermittent long term care, physical therapy and/or speech therapy or continues to need occupational therapy. The patient is under my care, and I have initiated the establishment of the plan of care. This patient will be followed by a physician who will periodically review the plan of care.
[2020-10-02] MEDS ORDERED: WARFARIN SOD 5 MG TAB PO SCH (16:00)
--- NOTE | 2020-10-02 18:08 | Billing Data ---
Date of Service October 02, 2020 Coding Level of Care Code D/C DAY MANAGEMENT <30 MINS
--- NOTE | 2020-10-04 09:20 | Electrocardiogram Report ---
Test Reason : Blood Pressure : / mmHG Vent. Rate : 052 BPM Atrial Rate : 052 BPM P-R Int : 196 ms QRS Dur : 142 ms QT Int : 538 ms P-R-T Axes : 095 124 013 degrees QTc Int : 500 ms Sinus bradycardia Right bundle branch block Left posterior fascicular block Bifascicular block Abnormal ECG When compared with ECG of 01-OCT-2020 06:10, No significant change Confirmed by Manohar Branham ([id number]) on 10/04/2020 9:19:46 AM Referred By: REFERRED SELF Confirmed By:Manohar Branham
== END 2020-10-02 16:26 | disposition home health service (06) | DRG 280 ==
LOC: ED 00:22 → 2N 02:48 → SUATTDRO 02:48 → 2N 03:59

== ENCOUNTER 2020-10-20 17:12 | Observation (INO) ==
--- NOTE | 2020-10-20 18:03 | Emergency Department Note ---
Impression & Plan Chest pain, Elevated INR, Hypertension ED Provider Note NAME: JUAN SMITH AGE: 80 SEX: F : 1940 ARRIVES VIA: Walk-In INFORMANT: Patient ED PROVIDER(S): Zia Kang DO CHIEF COMPLAINT: abnormal lab HPI: Patient is an 80-year-old female who presents to the ER for elevated INR. She has a past medical history of a CABG, CHF, CAD, LVH, diabetes, who presents the ER following a recent admission and being placed on Coumadin 3 weeks ago. She notes that she had her blood checked and was elevated at around 7 who was referred in. She denies any headache or change in vision. No chest pain or shortness of breath. No nausea vomiting or diarrhea. No black stools or dark tarry stools. She notes that last week she did have an episode of angina which took nitro and it resolved immediately and she did have some on Sunday which again resolved after 1 dose of nitro. She noted this on review of systems. ROS: See above HPI for pertinent positives & negatives. A total of 10 systems reviewed and were otherwise negative. PAST MEDICAL HISTORY:See Below PAST SURGICAL HISTORY:See Below FAMILY HISTORY:See Below SOCIAL HISTORY:See Below HOME MEDICATIONS:See Below ALLERGIES:See Below VITALS:See Below PHYSICAL EXAMINATION: GENERAL: Sitting up in bed, alert, well appearing, well nourished, no distress, non-toxic EYE EXAM: normal conjunctiva. OROPHARYNX: no exudate, no erythema, lips, buccal mucosa, and tongue normal and mucous membranes are moist NECK: supple, no nuchal rigidity, no adenopathy, non-tender LUNGS: Clear to auscultation. Normal chest wall mechanics HEART: no murmurs, S1 normal and S2 normal ABDOMEN: abdomen soft, non-tender, normo-active bowel sounds, no masses, no rebound or guarding. UPPER EXTREMITIES: upper extremities are grossly normal. LOWER EXTREMITIES: No pitting edema. NEURO EXAM: Normal sensorium, cranial nerves II-XII grossly intact, normal speech, no gross weakness of arms, no gross weakness of legs. MEDICAL DECISION MAKING: Patient is an 80-year-old female who came into the ER and was referred in for an elevated INR. On review of systems she did note that she had chest pain last week and had some on Sunday. IV was established blood was obtained. Labs show no significant leukocytosis. Mild anemia 9.3 which actually improved from previous. INR at 6.6. BMP with a creatinine of 2.8 consistent with previous. Troponin was negative. EKG has new T wave inversions in the inferior leads which consistent with previous admission EKG on last admission. Changed from the discharge EKG. I discussed this with Dr. Roberto Moss. Patient follows with this group. As she has been asymptomatic with a negative troponin he recommends having her follow-up in the office no additional work-up from the standpoint at this time. Patient was given IV vitamin K 5 units as she did have some nosebleeds earlier this week but they have resolved. Recommended holding Coumadin and following up with PCP and cardiology within the next 48 hours. Discussed with Pt concerning signs and symptoms to watch out for. Pt was instructed to follow up with their PCP and discussed with the patient their option to return to the ED at anytime for persistent or worsening symptoms. The appropriate anticipatory guidance and out-patient management, including indications for return to the emergency department, were explained at length to the patient and understood. Triage Nursing notes reviewed. Limited review of prior medical records performed Vital Signs: reviewed and remarkable for HTN Differential diagnosis: Infection, dehydration, metabolic abnormality, hypo/hyperglycemia, electrolyte disturbance, anemia, hypoxia, cardiac sources, intracerebral event, toxicologic, neurologic, as well as other pathologies. ER treatment provided: See below Diagnostics interpreted by me: ECG: Sinus rhythm rate 63 Normal axis Right bundle branch block T wave inversion in the inferior leads QTC 511 T wave inversion in the inferior leads is new from most recent EKG but unchanged from EKG 3 weeks ago/admission EKG Cardiac Monitoring: An order was placed for continuous cardiac monitoring. The monitor shows a rate of 82 with sinus rhythm. Laboratory studies: As stated above and show below. Imaging studies: See below Consultation(s): Discussed with Dr. Roberto Moss as stated above recommends having patient follow-up in regards to intermittent chest pain. 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 Surgical History H/O lumpectomy left breast 1985 History of appendectomy History of lumbar surgery S/P CABG x 4 (1994) Family History Brother Alcohol abuse Heart disease Diabetes Hypertension Kidney disease Myocardial infarction Father Myocardial infarction Hypertension Diabetes Heart disease Stroke, Onset Age: 56 of stroke at age 56 Mother Heart disease Diabetes Gallbladder disease Myocardial infarction Unknown Breast cancer Other Family history non-contributory Social History Smoking Status: Never smoker Second Hand Exposure: No; Hx Alcohol Use: No Hx Substance Use: No Preferred Language: Comoran Communication Ability: Effective Visual Impairment: No Limitations Hearing Ability: Normal [employer] Required: No Beliefs That Will Affect Care: None marital status: / Current Living Situation: Alone Current Living Situation Comment: alone with indep. living in "[facility]. current occupational status: retired How many Children do You have: 7 How many Children do You have Comment: 3 biological and adopted 4 Feels Safe at Home: Yes Childhood Exposure to Second-Hand Smoke: No caffeine: Yes (Soda occasional intake) during the past year weight has: remained stable Dental Care, Regularly: No Physical Activity Frequency: Daily Seatbelt Use: always Sunscreen Use: No Assistive Devices: None Allergies Allergies Allergy/AdvReac Type Severity Reaction Status Date / Time risperidone [From Risperdal] Allergy Unknown ON [facility] Verified 10/20/20 19:39 LIST Home Meds Home Medications Medication Instructions Recorded Confirmed omega 4-fsb-zkk-fish oil 1,000 mg 1,000 mg PO BIDM 06/12/18 10/20/20 (120 mg-180 mg) capsule (Fish Oil) aspirin 81 mg tablet,delayed 81 mg PO HS 09/30/20 10/20/20 release (Aspirin Low Dose) levothyroxine 50 mcg tablet 50 mcg PO DAILYBB 09/30/20 10/20/20 famotidine 10 mg tablet 10 mg PO DAILY 10/11/20 10/20/20 insulin glargine 100 unit/mL (3 4 - 10 unit SUBCUT AMPM 10/20/20 10/20/20 mL) subcutaneous pen (Lantus Solostar U-100 Insulin) insulin lispro 100 unit/mL 4 - 10 units SUBCUT TIDWMEAL 10/20/20 10/20/20 subcutaneous pen (Humalog KwikPen (U-100) Insulin) patiromer calcium sorbitex 8.4 8.4 g PO DAILY 10/20/20 10/20/20 gram oral powder packet (Veltassa) warfarin 5 mg tablet 2.5 mg PO 4XWK 10/20/20 10/20/20 warfarin 5 mg tablet 5 mg PO 3XWK 10/20/20 10/20/20 Previous Rx's Medication Instructions Recorded furosemide 20 mg tablet (Lasix) 20 mg PO QAM #90 tab 06/03/20 ranolazine 1,000 mg 1,000 mg PO BID #180 tab 06/03/20 tablet,extended release,12 hr clopidogrel 75 mg tablet (Plavix) 75 mg PO DAILY #90 tab 06/21/20 rosuvastatin 40 mg tablet 40 mg PO HS #90 tab 06/21/20 isosorbide mononitrate 30 mg 30 mg PO QAM 30 Days #30 tab 10/02/20 tablet,extended release 24 hr metoprolol succinate 25 mg 75 mg PO QAM 30 Days #90 tab 10/02/20 tablet,extended release 24 hr nitroglycerin 0.4 mg sublingual 0.4 mg SUBLINGUAL UD PRN #25 tab 10/08/20 tablet (Nitrostat) Results & Data (ED) Vital Signs Vital Signs - 24 hr 10/20/20 17:37 10/20/20 18:13 10/20/20 18:26 Temperature 36.7 C Temperature Source Temporal Artery Scan Pulse Rate 66 55 L Pulse Rate [Apical] Pulse Rate from SpO2 Sensor 62 Pulse Rhythm Regular Pulse Strength Normal Respiratory Rate 20 15 Respiratory Effort / Characteristics Non-Labored Spontaneous Respiratory Depth Normal Respiratory Pattern Regular Blood Pressure 170/80 H Blood Pressure [Right Arm] Blood Pressure Mean 110 Blood Pressure Mean [Right Arm] Blood Pressure Position Sitting Pulse Oximetry 99 98 97 Oxygen Delivery Method Room Air Room Air Room Air Sepsis Recent Fever Within 48 Hours No Sepsis New/Unexplained Change in Mental Status N/A Sepsis Action Taken by Nursing No Action Required 10/20/20 18:30 10/20/20 19:32 10/20/20 19:37 Temperature Temperature Source Pulse Rate 60 Pulse Rate [Apical] 63 100 H Pulse Rate from SpO2 Sensor 63 Pulse Rhythm Pulse Strength Respiratory Rate 12 13 10 L Respiratory Effort / Characteristics Respiratory Depth Respiratory Pattern Blood Pressure Blood Pressure [Right Arm] 195/73 H 186/79 H Blood Pressure Mean Blood Pressure Mean [Right Arm] 113 114 Blood Pressure Position Pulse Oximetry 98 99 100 Oxygen Delivery Method Room Air Room Air Sepsis Recent Fever Within 48 Hours Sepsis New/Unexplained Change in Mental Status Sepsis Action Taken by Nursing 10/20/20 19:47 Temperature Temperature Source Pulse Rate Pulse Rate [Apical] 97 H Pulse Rate from SpO2 Sensor Pulse Rhythm Pulse Strength Respiratory Rate 20 Respiratory Effort / Characteristics Respiratory Depth Respiratory Pattern Blood Pressure Blood Pressure [Right Arm] 189/77 H Blood Pressure Mean Blood Pressure Mean [Right Arm] 114 Blood Pressure Position Pulse Oximetry 95 Oxygen Delivery Method Room Air Sepsis Recent Fever Within 48 Hours Sepsis New/Unexplained Change in Mental Status Sepsis Action Taken by Nursing Laboratory Data Result diagrams: 10/20/20 18:05 10/20/20 18:05 Lab Results 10/20/20 10/20/20 10/20/20 Range/Units 18:05 18:05 18:05 WBC 6.72 (4.8-10.8) K/uL RBC 3.18 L (4.2-5.4) M/uL Hgb 9.3 L (12.0-16.0) g/dL Hct 29.1 L (37-47) % MCV 91.5 (80-100) fL MCH 29.2 (25-34) pg MCHC 32.0 (32-36) g/dL RDW Std Deviation 49.2 H (36.4-46.3) fL RDW Coeff of Shelli 14.6 H (11.5-14.5) % Plt Count 203 (130-400) K/uL MPV 10.3 (7.4-10.4) fL Immature Gran % (Auto) 0.4 % Neut % (Auto) 60.3 % Lymph % (Auto) 29.0 % Hudson % (Auto) 7.4 % Eos % (Auto) 2.8 % Baso % (Auto) 0.1 % Neut # (Auto) 4.04 (1.4-6.5) K/uL Lymph # (Auto) 1.95 (1.2-3.4) K/uL Hudson # (Auto) 0.50 (0.11-0.59) K/uL Eos # (Auto) 0.19 (0-0.5) K/uL Baso # (Auto) 0.01 (0-0.2) K/uL Immature Gran # (Auto) 0.03 H (0.00-0.02) K/uL PT 57.2 H (9.0-12.0) Seconds INR 6.6 H* (0.9-1.1) APTT 77.0 H* (21.0-31.0) Seconds PTT Ratio 2.9 Sodium 136 (136-145) mmol/L Potassium 4.6 (3.5-5.1) mmol/L Chloride 105 (98-107) mmol/L Carbon Dioxide 26 (21-32) mmol/L Anion Gap 5.0 (3-11) BUN 39 H (7-18) mg/dl Creatinine 2.86 H (0.6-1.2) mg/dl Est Cr Clr Drug Dosing Not Reportable Est GFR ( Amer) 17.3 ml/min Est GFR (Non-Af Amer) 14.9 ml/min BUN/Creatinine Ratio 13.5 (10-20) Glucose 155 H (70-99) mg/dl Calcium 9.0 (8.5-10.1) mg/dl Total Bilirubin 0.6 (0.2-1) mg/dl AST 16 (15-37) U/L ALT 16 (12-78) U/L Alkaline Phosphatase 54 (45-117) U/L Troponin I < 0.015 (0-0.045) ng/ml Total Protein 8.0 (6.4-8.2) gm/dl Albumin 3.3 L (3.4-5.0) gm/dl Globulin 4.7 H (2.5-4.0) gm/dl Albumin/Globulin Ratio 0.7 L (0.9-2) Administered Medications Discontinued Medications Phytonadione 5 mg/ Sodium (Chloride) 50.5 mls @ 101 mls/hr IV ONE ONE Stop: 10/20/20 19:25 Last Admin: 10/20/20 19:26 Dose: 101 mls/hr Documented by: [id number] Discharge Plan Visit Data Chief Complaint: Referred by Doctor Stated Complaint: BLOOD TO THIN, REF BY ED Provider: Zia Kang Discharge Problem: Chest pain, Elevated INR, Hypertension Discharge Instructions Activity Restrictions/Additional Instructions: Please follow up with your primary care doctor with in the next 24 hours. Any worsening of your symptoms, please return to the ED immediately. This includes any fevers greater than 100.4, worsening pain, chest pain, shortness breath, persistent nausea, vomiting, unable to eat or drink, or any other concerning signs or symptoms from your standpoint. You were found to have a blood pressure greater than 120 systolic over 90 diastolic. Due to the new Medicare guidelines, we are now recommending that you follow up with your primary care doctor in regards to this elevated blood p ressure. Your INR was elevated and this was reversed with vitamin K. Please do not take your Coumadin tonight. Please call your PCP and your inspector balance truing tomorrow for further follow-up and adjustments in regards to your Coumadin level. This level will need to be rechecked tomorrow for further management. Forms Stand Alone Forms: My [facility] Prescriptions Prescriptions: No Action clopidogrel [Plavix] 75 mg tablet 75 mg PO DAILY Qty: 90 RF: 3 rosuvastatin 40 mg tablet 40 mg PO HS Qty: 90 RF: 3 nitroglycerin [Nitrostat] 0.4 mg tablet, sublingual 0.4 mg sublingual UD PRN (Reason: chest pain) Qty: 25 RF: 3 ranolazine 1,000 mg tablet extended release 12 hr 1,000 mg PO BID Qty: 180 RF: 3 furosemide [Lasix] 20 mg tablet 20 mg PO QAM Qty: 90 RF: 3 famotidine 10 mg tablet 10 mg PO DAILY RF: 0 omega 6-rls-pbk-fish oil [Fish Oil] 1,000 mg (120 mg-180 mg) Capsule 1,000 mg PO BIDM RF: 0 insulin lispro [Humalog KwikPen Insulin] 100 unit/mL insulin pen 4 - 10 units SUBCUT TIDWMEAL RF: 0 Lantus Solostar U-100 Insulin 100 unit/mL (3 mL) insulin pen 4 - 10 unit subcut AMPM RF: 0 warfarin 5 mg tablet 5 mg PO 3XWK RF: 0 warfarin 5 mg Tablet 2.5 mg PO 4XWK RF: 0 Veltassa 8.4 gram powder in packet 8.4 g PO DAILY RF: 0 levothyroxine 50 mcg tablet 50 mcg PO DAILYBB RF: 0 aspirin [Aspirin Low Dose] 81 mg Tablet,Delayed Release (Dr/Ec) 81 mg PO HS RF: 0 isosorbide mononitrate 30 mg Tablet Extended Release 24 Hr 30 mg PO QAM 30 Days Qty: 30 RF: 0 metoprolol succinate 25 mg Tablet Extended Release 24 Hr 75 mg PO QAM 30 Days Qty: 90 RF: 0 Referrals Referrals: Hever Christianson CRNP [Primary Care Provider] -
[2020-10-20 18:17] LABS: Basophils # (auto) 0.01 K/uL (0-0.2); Basophils % (auto) 0.1 %; Eosinophils # (auto) 0.19 K/uL (0-0.5); Eosinophils % (auto) 2.8 %; Hematocrit (blood only) 29.1 % (37-47); Hemoglobin 9.3 g/dL (12.0-16.0); Immature Granulocytes # (auto) 0.03 K/uL (0.00-0.02); Immature Granulocytes % (auto) 0.4 %; Lymphocytes # (auto) 1.95 K/uL (1.2-3.4); Mean Corpuscular Hemoglobin 29.2 pg (25-34); Mean Corpuscular Volume 91.5 fL (80-100); Mean Platelet Volume 10.3 fL (7.4-10.4); Monocytes % (auto) 7.4 %; Neutrophils # (auto) 4.04 K/uL (1.4-6.5); Neutrophils % (auto) 60.3 %; Platelet Count 203 K/uL (130-400); RDW Coefficient of Variation 14.6 % (11.5-14.5); RDW Standard Deviation 49.2 fL (36.4-46.3); Red Blood Count 3.18 M/uL (4.2-5.4); White Blood Count 6.72 K/uL (4.8-10.8)
[2020-10-20 18:33] LABS: Alanine Aminotransferase 16 U/L (12-78); Albumin Level 3.3 gm/dl (3.4-5.0); Aspartate Aminotransferase 16 U/L (15-37); BUN Creatinine Ratio 13.5 (10-20); Blood Urea Nitrogen 39 mg/dl (7-18); Carbon Dioxide 26 mmol/L (21-32); Chloride 105 mmol/L (98-107); Est GFR (African American) 17.3 ml/min; Est GFR (Non-African American) 14.9 ml/min; Glucose 155 mg/dl (70-99); Potassium 4.6 mmol/L (3.5-5.1); Sodium 136 mmol/L (136-145)
[2020-10-20 18:38] LABS: Albumin Globulin Ratio 0.7 (0.9-2); Alkaline Phosphatase 54 U/L (45-117); Bilirubin,Total 0.6 mg/dl (0.2-1); Globulin 4.7 gm/dl (2.5-4.0); Troponin I < 0.015 ng/ml (0-0.045)
[2020-10-20 18:45] LABS: Partial Thromboplastin Ratio 2.9; Prothrombin Time 57.2 Seconds (9.0-12.0)
[2020-10-20 18:49] LABS: INR 6.6 (0.9-1.1)
[2020-10-20] MEDS ORDERED: PHYTONADIONE 5 MG in SODIUM CHLORIDE 0.9% 50 ML IV ONE (18:56)
[2020-10-20] MEDS ORDERED: hydrALAZINE HCL 20 MG/ML VIAL IV STA (20:18)
--- NOTE | 2020-10-20 20:40 | History & Physical Report ---
Date of Service October 20, 2020 Assessment & Plan (1) Hypertension: Plan: 80yo female with HTN, CAD, recent NSTEMI, history of CABG, LVH, mitral stenosis, angina, DM2, CKD4, HFpEF, and GERD who initially presented for evaluation of supratherapeutic INR found on routine monitoring, admitted for evaluation of severe-range hypertension which developed while in the ED. Severe-range hypertension BP 170/80 on arrival, worsened over the course of a few hours to a max of 214/79 with persistent systolic pressures over 200 BP slightly improved with administration of hydralazine IV 10mg in ED Endorses mild worsening headache but otherwise without symptoms associated with severe-range pressures CT head without contrast pending Initial troponin negative, EKG with new T-wave inversion in leads III and aVF, EKG otherwise relatively unchanged from prior, though notable for RBBB and signs of prior infarct Admit to med/surg Continue home metoprolol (increased from 25mg to 75mg PO qAM during last admission three weeks ago) Started amlodipine 5mg qAM, with one dose given at 22:30, reevaluate in AM, consider adding to home regimen if BP responds well Hydralazine 10mg PO tid prn persistent SBP>200 or DBP>110 Supratherapeutic INR INR elevated to 6.6 on admission in the setting of warfarin therapy which was started about three weeks ago after being admitted for NSTEMI Hold home warfarin Vitamin K 5mg (IV) administered in ED Repeat PT/INR in AM CAD, recent NSTEMI Continue home metoprolol, clopidogrel, ASA, rosuvastatin Continue nitro prn chest pain EKG prn chest pain Angina Continue isosorbide mononitrate, ranolazine HFpEF No signs of fluid overload on admission Continue home furosemide 20mg PO qAM CKD4 Creatinine 2.86 on admission, baseline 2.4-2.8 Continue patiromer Trend daily BMP DM2 HbA1c 7.1% (10/01/20) Patient's home regimen held on admission Continue BSG checks, sliding-scale insulin, hypoglycemic protocol GERD Continue home famotidine Hypothyroidism Continue home levothyroxine FEN: carb-consistent, heart healthy, low sodium diet, no IVF ordered Code status: DNR/DNI DVT ppx: SCDs PT/OT: ordered Dispo: med/surg for improved BP control History of Present Illness Chief Complaint: Elevated INR Primary Care Provider: JERONIMO Raines 80yo female with CAD, recent NSTEMI, history of CABG, LVH, mitral stenosis, angina, DM2, CKD4, HFpEF, and GERD presents to the ED after outpatient labs showed a supratherapeutic INR at around 7. Patient denies any bleeding. Patient currently endorses mild pain under her right breast, headache, and LE weakness which has been bothering her on and off since she was discharged about three weeks ago (patient was admitted 09/30 for NSTEMI and CHF exacerbation; patient was not considered a candidate for cardiac catheterization and was discharged on 10/02). Patient's BP on arrival was 170/80, but while in the ED this worsened with persistent systolic pressures over 200 and a max of 214/79. Patient initially described her headache as a dull 2/10 headache, but while in the ED, patient noted her headache suddenly worsened to 4/10 and began to hurt worse on the left side of her head. Patient was concerned about this because she reports not having a headache in years. Patient denies current CP, SOB, vision changes, facial droop, slurred speech, abdominal pain, nausea, vomiting, palpitations, cough, or dysuria. Of note, patient did have chest discomfort last week as well as two days ago which resolved with nitro. Denies any associated symptoms at that time including SOB, nausea, vomiting, back pain, or other symptoms. Allergies Allergy/AdvReac Type Severity Reaction Status Date / Time risperidone [From Risperdal] Allergy Unknown ON [facility] Verified 10/20/20 19:39 LIST Home Medications Medication Instructions Recorded Confirmed Type omega [id number]-fish oil 1,000 mg 1,000 mg PO BIDM 06/12/18 10/20/20 History (120 mg-180 mg) capsule (Fish Oil) furosemide 20 mg tablet (Lasix) 20 mg PO QAM #90 tab 06/03/20 10/20/20 Rx ranolazine 1,000 mg 1,000 mg PO BID #180 tab 06/03/20 10/20/20 Rx tablet,extended release,12 hr clopidogrel 75 mg tablet (Plavix) 75 mg PO DAILY #90 tab 06/21/20 10/20/20 Rx rosuvastatin 40 mg tablet 40 mg PO HS #90 tab 06/21/20 10/20/20 Rx aspirin 81 mg tablet,delayed 81 mg PO HS 09/30/20 10/20/20 History release (Aspirin Low Dose) levothyroxine 50 mcg tablet 50 mcg PO DAILYBB 09/30/20 10/20/20 History isosorbide mononitrate 30 mg 30 mg PO QAM 30 Days #30 tab 10/02/20 10/20/20 Rx tablet,extended release 24 hr metoprolol succinate 25 mg 75 mg PO QAM 30 Days #90 tab 10/02/20 10/20/20 Rx tablet,extended release 24 hr nitroglycerin 0.4 mg sublingual 0.4 mg SUBLINGUAL UD PRN #25 tab 10/08/20 10/20/20 Rx tablet (Nitrostat) famotidine 10 mg tablet 10 mg PO DAILY 10/11/20 10/20/20 History insulin glargine 100 unit/mL (3 4 - 10 unit SUBCUT AMPM 10/20/20 10/20/20 History mL) subcutaneous pen (Lantus Solostar U-100 Insulin) insulin lispro 100 unit/mL 4 - 12 units SUBCUT TIDWMEAL 10/20/20 10/20/20 History subcutaneous pen (Humalog KwikPen (U-100) Insulin) patiromer calcium sorbitex 8.4 8.4 g PO DAILY 10/20/20 10/20/20 History gram oral powder packet (Veltassa) warfarin 5 mg tablet 2.5 mg PO 4XWK 10/20/20 10/20/20 History warfarin 5 mg tablet 5 mg PO 3XWK 10/20/20 10/20/20 History Past Med/Surg History Medical History (Updated 10/20/20 @ 20:00 by Zia Kang DO) Anemia CAD (coronary artery disease) Chronic kidney disease, stage IV (severe) 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 Diabetic retinopathy, nonproliferative GERD without esophagitis History of breast cancer Lumpectomy plus radiation Hyperlipidemia Hypertension Hypothyroidism Mild cardiomegaly Mitral stenosis 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 Surgical History H/O lumpectomy left breast 1984 History of appendectomy History of lumbar surgery S/P CABG x 4 (1994) Family History Brother Alcohol abuse Heart disease Diabetes Hypertension Kidney disease Myocardial infarction Father Myocardial infarction Hypertension Diabetes Heart disease Stroke, Onset Age: 56 of stroke at age 56 Mother Heart disease Diabetes Gallbladder disease Myocardial infarction Unknown Breast cancer Other Family history non-contributory Social History Smoking Status: Never smoker Second Hand Exposure: No; Hx Alcohol Use: No Hx Substance Use: No Preferred Language: American Communication Ability: Effective Visual Impairment: No Limitations Hearing Ability: Normal Manager Audio Required: No Beliefs That Will Affect Care: None marital status: / Current Living Situation: Alone Current Living Situation Comment: alone with indep. living in "[facility]. current occupational status: retired How many Children do You have: 7 How many Children do You have Comment: 3 biological and adopted 4 Feels Safe at Home: Yes Childhood Exposure to Second-Hand Smoke: No caffeine: Yes (Soda occasional intake) during the past year weight has: remained stable Dental Care, Regularly: No Physical Activity Frequency: Daily Seatbelt Use: always Sunscreen Use: No Assistive Devices: None Review of Systems Review of Systems: See HPI Physical Exam Physical Exam: Constitutional: well-appearing, no acute distress HEENT: NCAT, no conjunctival injection CV: regular rhythm, grade 4/6 systolic crescendo-decrescendo murmur, extremities well-perfused, 1+ pitting edema of BL LE up to the mid-calf Resp: CTABL, no wheezes/rales/rhonchi appreciated, no increased work of breathing GI: soft, nondistended, nontender, BS normoactive MSK: mild RLE tenderness to palpation Skin: warm, dry, no rash appreciated Neuro: AOx4, no focal neurological deficits appreciated Results & Data Results & Data ([facility]) Vital Signs (Past 12 Hours) Vital Signs Temp Pulse Pulse Resp BP BP Pulse Ox 10/20/20 19:47 97 H 20 189/77 H 95 10/20/20 19:37 100 H 10 L 186/79 H 100 10/20/20 19:32 63 13 195/73 H 99 10/20/20 18:30 60 12 98 10/20/20 18:26 55 L 15 97 10/20/20 18:13 98 10/20/20 17:37 36.7 C 66 20 170/80 H 99 Laboratory Results Laboratory Results WBC 6.72 K/uL (4.8-10.8) 10/20/20 18:05 RBC 3.18 M/uL (4.2-5.4) L 10/20/20 18:05 Hgb 9.3 g/dL (12.0-16.0) L 10/20/20 18:05 Hct 29.1 % (37-47) L 10/20/20 18:05 MCV 91.5 fL (80-100) 10/20/20 18:05 MCH 29.2 pg (25-34) 10/20/20 18:05 MCHC 32.0 g/dL (32-36) 10/20/20 18:05 RDW Std Deviation 49.2 fL (36.4-46.3) H 10/20/20 18:05 RDW Coeff of Shelli 14.6 % (11.5-14.5) H 10/20/20 18:05 Plt Count 203 K/uL (130-400) 10/20/20 18:05 MPV 10.3 fL (7.4-10.4) 10/20/20 18:05 Immature Gran % (Auto) 0.4 % 10/20/20 18:05 Neut % (Auto) 60.3 % 10/20/20 18:05 Lymph % (Auto) 29.0 % 10/20/20 18:05 Runnels % (Auto) 7.4 % 10/20/20 18:05 Eos % (Auto) 2.8 % 10/20/20 18:05 Baso % (Auto) 0.1 % 10/20/20 18:05 Neut # (Auto) 4.04 K/uL (1.4-6.5) 10/20/20 18:05 Lymph # (Auto) 1.95 K/uL (1.2-3.4) 10/20/20 18:05 Runnels # (Auto) 0.50 K/uL (0.11-0.59) 10/20/20 18:05 Eos # (Auto) 0.19 K/uL (0-0.5) 10/20/20 18:05 Baso # (Auto) 0.01 K/uL (0-0.2) 10/20/20 18:05 Immature Gran # (Auto) 0.03 K/uL (0.00-0.02) H 10/20/20 18:05 PT 57.2 Seconds (9.0-12.0) H 10/20/20 18:05 INR 6.6 (0.9-1.1) H* 10/20/20 18:05 APTT 77.0 Seconds (21.0-31.0) H* 10/20/20 18:05 PTT Ratio 2.9 10/20/20 18:05 Sodium 136 mmol/L (136-145) 10/20/20 18:05 Potassium 4.6 mmol/L (3.5-5.1) 10/20/20 18:05 Chloride 105 mmol/L (98-107) 10/20/20 18:05 Carbon Dioxide 26 mmol/L (21-32) 10/20/20 18:05 Anion Gap 5.0 (3-11) 10/20/20 18:05 BUN 39 mg/dl (7-18) H 10/20/20 18:05 Creatinine 2.86 mg/dl (0.6-1.2) H 10/20/20 18:05 Est Cr Clr Drug Dosing Not Reportable 10/20/20 18:05 Est GFR ( Amer) 17.3 ml/min 10/20/20 18:05 Est GFR (Non-Af Amer) 14.9 ml/min 10/20/20 18:05 BUN/Creatinine Ratio 13.5 (10-20) 10/20/20 18:05 Glucose 155 mg/dl (70-99) H 10/20/20 18:05 Calcium 9.0 mg/dl (8.5-10.1) 10/20/20 18:05 Total Bilirubin 0.6 mg/dl (0.2-1) 10/20/20 18:05 AST 16 U/L (15-37) 10/20/20 18:05 ALT 16 U/L (12-78) 10/20/20 18:05 Alkaline Phosphatase 54 U/L (45-117) 10/20/20 18:05 Troponin I < 0.015 ng/ml (0-0.045) 10/20/20 18:05 Total Protein 8.0 gm/dl (6.4-8.2) 10/20/20 18:05 Albumin 3.3 gm/dl (3.4-5.0) L 10/20/20 18:05 Globulin 4.7 gm/dl (2.5-4.0) H 10/20/20 18:05 Albumin/Globulin Ratio 0.7 (0.9-2) L 10/20/20 18:05 COVID-19 Eval Order Covid19 at [facility] 10/20/20 20:25 SARS-CoV-2 (PCR) NEGATIVE (Negative) 10/20/20 20:25 Supervising Physician Co-Signing Physician Notes Patient seen and examined, chart reviewed, case discussed with Dr. Leija and I agree with his assessment and plan as above. Briefly, patient is an 80yo female with history of CAD, CKD, DM, GERD, HTN and HLP presenting with supratherapeutic INR. Patient with elevated BP in the ER requiring IV antihypertensives. Also with new left sided headache. On exam she is afebrile, hypertensive, otherwise HD stable, NAD Skin - intact, no rashes, lesions HEENT - NC/AT, PERRL, MMM, neck supple Heart - +S1/S2, regular, 2/6 JERILYN at LSB Lungs - CTA Abd - +BS, soft, NT/ND Ext - No edema labs and images reviewed Assessment/Plan Elevated blood pressure > 200mmHg on several occasions in ER. Patient reports compliance with her home medications and has taken them today. She is complaining of headache. No neurological deficits. No end-organ damage noted Will continue home blood pressure medications. Her Metoprolol was recently increased to 75mg daily. Will initiate Amlodipine 5mg po daily in addition to her other agents. Monitor BP Supratherapeutic INR - no evidence of bleeding. Vitamin K 5mg IV given in ER. Patient is on Coumadin for apical akinesis + MR- should be anticoagulated for at least 3 weeks starting 10/01/20. Patient is nearing the end of her 3 weeks - question need for ongoing anticoagulation following this admission? Repeat INR in AM Hold Coumadin CAD with recent NSTEMI. On medical management. No CP at present. EKG with stable changes. Continue home medications - Metoprolol, Plavix, ASA, Rosuvastatin Remainder of plan as above Resident Activity Tracking Resident Involvement: Resident Care Provided Care Provided: Adult Hospital Medicine (1) Hypertension Hypertension type: unspecified Qualified Code(s): I10 - Essential (primary) hypertension
[2020-10-20] MEDS ORDERED: amLODIPine BESYLATE 5 MG TAB PO ONE (22:20)
[2020-10-20] MEDS ORDERED: GLUCOSE 10 TABS/TUBE PO PRN (22:44)
[2020-10-20] MEDS ORDERED: CARBOHYDRATES FOR HYPOGLYCEMIA PO PRN (22:44)
[2020-10-20] MEDS ORDERED: GLUCOSE 40% GEL 15 GM TUBE PO PRN (22:44)
[2020-10-20] MEDS ORDERED: DEXTROSE 50% 50 ML SYRINGE IV PRN (22:44)
[2020-10-20] MEDS ORDERED: GLUCAGON FOR INJ 1 MG VIAL SQ PRN (22:44)
--- NOTE | 2020-10-20 23:37 | Billing Data ---
Date of Service October 20, 2020 Coding Level of Care Code INT OBSERVATION CARE 70M LVL 3
[2020-10-21] MEDS ORDERED: MAGNESIUM HYDROXIDE SUSP 30 ML UDC PO PRN (00:07)
[2020-10-21] MEDS ORDERED: ALUMINUM/MAGNESIUM SUSP 30 ML UDC PO PRN (00:07)
[2020-10-21] MEDS ORDERED: POLYETHYLENE (MIRALAX) 17 GM PACK PO PRN (00:07)
[2020-10-21] MEDS ORDERED: NITROGLYCERIN SL 0.4 MG/TAB TAB SL PRN (00:07)
[2020-10-21] MEDS ORDERED: ONDANSETRON INJ 2 MG/ML 2 ML VIAL IV PRN (00:07)
[2020-10-21] MEDS ORDERED: ACETAMINOPHEN 325 MG TAB PO PRN (00:07)
[2020-10-21] MEDS ORDERED: INSULIN ASPART 100 UNITS/ML 3 ML PEN SC SCH (00:30)
[2020-10-21] MEDS: RANOLAZINE 500 MG ER TAB PO SCH ×3 (00:59→20:41)
[2020-10-21] MEDS: ROSUVASTATIN CALCIUM 20 MG TAB PO SCH ×2 (00:59→20:41)
[2020-10-21] MEDS ORDERED: Nursing to Pharmacy Communication SCH ×2 (05:00→06:00)
[2020-10-21] MEDS ORDERED: LEVOTHYROXINE SODIUM 50 MCG TABLET PO SCH (06:30)
[2020-10-21 06:49] LABS: Basophils # (auto) 0.01 K/uL (0-0.2); Basophils % (auto) 0.1 %; Eosinophils # (auto) 0.16 K/uL (0-0.5); Eosinophils % (auto) 2.4 %; Hematocrit (blood only) 26.8 % (37-47); Hemoglobin 8.8 g/dL (12.0-16.0); Immature Granulocytes # (auto) 0.03 K/uL (0.00-0.02); Immature Granulocytes % (auto) 0.4 %; Lymphocytes # (auto) 1.65 K/uL (1.2-3.4); Lymphocytes % (auto) 24.4 %; Mean Corpuscular Hemoglobin 29.6 pg (25-34); Mean Corpuscular Hgb Conc 32.8 g/dL (32-36); Mean Corpuscular Volume 90.2 fL (80-100); Mean Platelet Volume 10.5 fL (7.4-10.4); Monocytes # (auto) 0.83 K/uL (0.11-0.59); Monocytes % (auto) 12.3 %; Neutrophils # (auto) 4.09 K/uL (1.4-6.5); Neutrophils % (auto) 60.4 %; Platelet Count 198 K/uL (130-400); RDW Coefficient of Variation 14.7 % (11.5-14.5); RDW Standard Deviation 47.9 fL (36.4-46.3); Red Blood Count 2.97 M/uL (4.2-5.4); White Blood Count 6.77 K/uL (4.8-10.8)
[2020-10-21 06:57] LABS: INR 1.7 (0.9-1.1); Prothrombin Time 16.7 Seconds (9.0-12.0)
[2020-10-21] MEDS: LEVOTHYROXINE SODIUM 50 MCG TABLET PO SCH (07:32)
--- NOTE | 2020-10-21 07:37 | CT Scan Report ---
HEAD CT NONCONTRAST CT DOSE: 537.48 mGy.cm HISTORY: severe range blood pressure, worsening headache TECHNIQUE: Multiaxial CT images of the head were performed without the use of intravenous contrast. A utomated exposure control was utilized for this study. A dose lowering technique was utilized adheri ng to the principles of ALARA. Comparison: Head CT 05/05/2019. Findings: The paranasal sinuses and mastoid air cells are clear. The calvarium and skull base are int act. There is no mass, hematoma, midline shift, acute infarct. White matter hypodensity is nonspecifi c but suggestive of microvascular ischemic change. The ventricles and sulci demonstrate mild age-rela meryl involutional changes. Impression: No significant change compared to the prior study. No acute intracranial abnormality. ACT 112: Negative or not required by law. Electronically signed by: Cesar Morrison M.D. 10/21/2020 7:35 AM
[2020-10-21 07:44] LABS: BUN Creatinine Ratio 14.3 (10-20); Calcium 8.6 mg/dl (8.5-10.1); Creatinine Clr Calc Pharmacy 17.7 ml/min; Est GFR (African American) 18.5 ml/min; Est GFR (Non-African American) 15.9 ml/min; Potassium 4.2 mmol/L (3.5-5.1)
[2020-10-21] MEDS: FUROSEMIDE 20 MG TAB PO SCH (08:33)
[2020-10-21] MEDS: ISOSORBIDE MONO EXTENDED REL 30 MG TABCR PO SCH (08:33)
[2020-10-21] MEDS: amLODIPine BESYLATE 5 MG TAB PO SCH (08:33)
[2020-10-21] MEDS: FAMOTIDINE 10 MG TABLET PO SCH (08:33)
[2020-10-21] MEDS: METOPROLOL SUCC 25MG EXT REL TAB PO SCH (08:34)
[2020-10-21] MEDS: CLOPIDOGREL BISULFATE 75 MG TAB PO SCH (08:34)
[2020-10-21] MEDS ORDERED: PATIROMER CALCIUM SORBITEX 8.4 GM PACK PO SCH (09:00)
[2020-10-21] MEDS: INSULIN ASPART 100 UNITS/ML 3 ML PEN SC SCH ×4 (09:37→20:43)
[2020-10-21 10:46] LABS: Folate (Folic Acid) > 20.00 ng/ml (>5.38); Vitamin B12 626 pg/ml (193-986)
[2020-10-21] MEDS: PANTOprazole 40 MG TAB PO SCH (11:53)
--- NOTE | 2020-10-21 11:59 | Hospitalist Progress Note ---
Date of Service October 21, 2020 Assessment & Plan (1) Hypertension: Plan: 80yo female with HTN, CAD, recent NSTEMI, history of CABG, LVH, mitral stenosis, angina, DM2, CKD4, HFpEF, and GERD who initially presented for evaluation of supratherapeutic INR found on routine monitoring, admitted for evaluation of this derangement as well as hypertensive urgency which developed while in the ED. Hypertensive Urgency BP 170/80 on arrival, worsened over the course of a few hours to persistent pressures SBP > 200 -- improved with hydralazine Endorses mild worsening headache but otherwise no CP/SOB/visual changes Work-up as follows: CT-Head without acute process Initial troponin negative, EKG with new T-wave inversion in leads III and aVF, EKG otherwise relatively unchanged from prior, though notable for RBBB and signs of prior infarct Troponin negative Suspect stress-induced at this point given appreciation in ED and otherwise no symptoms beforehand -- baseline BPs seem to be around 140-160s/80-90s on review of records Continue home metoprolol succinate 75mg daily Continue home isosorbide Will continue amlodipine 5mg started at admission for now, can consider discontinuing in near future if BPs stable Hydralazine 10mg PO tid prn persistent SBP>200 or DBP>110 Supratherapeutic INR -- INR 6.6 on admission, downtrended to 1.7 in AM of 10/21 INR elevated to 6.6 on admission in the setting of warfarin therapy which was started about three weeks ago after being admitted for NSTEMI, with TTE at that time showing apical akinesis and moderate MS (started as preventative measure for thrombus formation) In setting of 3 small meals a day and one missed INR check -- suspect component of nutritional relationship. No major medication interactions otherwi se. Hold home Warfarin for now Consult cardiology: -- Appreciate insight on utilization of Warfarin vs. NOACs for management of apical hypokinesis, as well as length of treatment -- Appreciate insight on need for DAPT (Plavix/ASA) while on anticoagulation s/p Vitamin K x 1 in ED Trend PT/INR Leg Pain (B/L) Began yesterday after no specific trigger - no trauma, fall, overuse Patient's INR supratherapeutic; however, given reproducibility on exam and significant TTP, will order venous duplex to r/o clot-related process CAD, recent NSTEMI Continue home metoprolol, clopidogrel, ASA, rosuvastatin Continue nitro prn chest pain EKG prn chest pain Angina Continue isosorbide mononitrate, ranolazine HFpEF No signs of fluid overload on admission Echo 10/01 demonstrating: Small area of apical akinesis, no thrombus, mild cLVH, EF 60-65, moderate MS Continue home furosemide 20mg PO qAM CKD4 Creatinine 2.86 on admission, baseline 2.4-2.8 Continue patiromer Trend daily BMP DM2 HbA1c 7.1% (10/01/20) Patient's home regimen held on admission Continue BSG checks, sliding-scale insulin, hypoglycemic protocol GERD Continue home famotidine Hypothyroidism Continue home levothyroxine FEN: carb-consistent, heart healthy, low sodium diet, no IVF ordered Code status: DNR/DNI DVT ppx: SCDs PT/OT: ordered Dispo: med/surg for improved BP control Admission and Anticipated Discharge Date Admission Date: October 20, 2020 Supervising Physician Co-Signing Physician Notes I also saw the patient with the resident physician and aonfirmed sebastian portions of the history and physical examination. Briefly, patient is an 80yo female with history of CAD, CKD, DM, GERD, HTN and HLP presenting with supratherapeutic INR. Patient with elevated BP in the ER requiring IV antihypertensives. She is status post a non-ST elevation HI about 1 month ago; she looks been placed on systemic anticoagulation (warfarin) out of concern for an apical thrombus and in the setting of her moderate mitral stenosis. She is also on dual antiplatelet therapy with aspirin and Plavix. This morning upon examination, her headache has largely resolved. She denies any chest pain or shortness of breath. Exam 148/58, 73, 18, 36.9, 96% on room air On exam she is afebrile, hypertensive, otherwise HD stable, NAD HEENT - NC/AT, PERRL, MMM, neck supple Heart - +S1/S2, regular, 2/6 JERILYN at LSB Lungs -clear to auscultation Abd - +BS, soft, NT/ND Ext - No edema Data Hemoglobin 8.8. This appears chronic. INR is 1.7 BUN 39, creatinine 2.71 Assessment/Plan I agree with the impression and plan as noted in the resident documentation, major points as summarized below. Hypertensive urgency Blood pressure is markedly improved today, with really minimal addition in terms of antihypertensives Supratherapeutic INR Has been successfully reversed with 5 mg IV vitamin K given in the emergency department. Question is if systemic anticoagulation is still indicated in this patient, and consideration of the risk of warfarin in combination with dual antiplatelet therapy in a patient with chronic anemia. We will discuss with cardiology Anemia Suspect chronic, and probably largely based on her renal disease and other chronic illnesses Agree with additional anemia studies as ordered Additional diagnoses as per the resident documentation Subjective No acute events overnight. At the bedside this morning, patient reports feeling better overall. Headache was still very mild this morning, but went away after I came back to revisit her an hour later this morning. Denies any changes in vision. Denies any chest pain, palpitations, shortness of breath. Of note, I did review history with patient and I have the following additions to her HPI: Patient says that she eats 2-3 small meals a day, but is otherwise been taking her medications as prescribed. She said that she was supposed to have an INR check on Sunday, but because of the holiday, this was delayed until yesterday. She does endorse drinking 4 ounces of prune juice a day due to constipation. Review of Systems Review of Systems: As per HPI Physical Exam Physical Exam: General: Tired and frail appearing 80-year-old female who is lying back in her hospital bed relaxed upon my arrival. She converses freely and is in no acute distress. HEENT: NCAT. Eyes - Sclera are white, anicteric, and without injection. outh - MMM with no tonsillar edema or exudates. Cardiac: Normal rate and regular rhythm; S1 and S2 present with no murmurs, rubs, or gallops. Pulmonary: Good respiratory effort with symmetric expansion of the chest. No use of accessory muscles. Lungs were clear to auscultation bilaterally with no crackles or wheezes. Abdominal: Normoactive bowel sounds. Abdomen was soft, nondistended, and non- tender to palpation. Extremities: Upper and lower extremities are warm and well perfused. There is mild tenderness to palpation along the medial aspects of both legs. There is no significant edema. Homans negative. Lower extremity strength 5 out of 5. Psych: Well-developed, well-nourished, appropriately dressed for occasion. Behavior is cooperative and appropriate. Affect is WNL. Insight is appropriate. Results & Data Results & Data ([facility]) Vital Signs (Past 12 Hours) Vital Signs Temp Pulse Resp BP BP Pulse Ox 10/21/20 07:15 37.1 C 65 16 125/66 95 10/21/20 03:55 75 129/75 117/69 10/21/20 00:30 36.5 C 81 20 183/77 H 97 10/21/20 00:16 36.5 C 20 183/77 H 97 Resident Activity Tracking Resident Involvement: Resident Care Provided Care Provided: Adult Hospital Medicine (1) Hypertension Hypertension type: unspecified Qualified Code(s): I10 - Essential (primary) hypertension
--- NOTE | 2020-10-21 13:36 | Ultrasound Report ---
BILATERAL LOWER EXTREMITY VENOUS DOPPLER HISTORY: Bilateral leg pain on medial calf (L+R), +TTP COMPARISON STUDY: None. FINDINGS: There is normal compressibility, flow, and augmentation within the bilateral lower extremit y deep venous systems. IMPRESSION: No DVT within the right or left lower extremity. ACT 112: Negative or not required by law. Electronically signed by: Cesar Morrison M.D. 10/21/2020 1:35 PM
--- NOTE | 2020-10-21 17:52 | Cardiology Consultation ---
Date of Consultation October 21, 2020 Assessment & Plan (1) CAD (coronary artery disease): (2) Mitral stenosis: (3) Stable angina pectoris: (4) Hx of CAB. Coronary disease: She continues have some symptoms of chest discomfort, however at this appears to be her baseline "angina". No extended episodes. I think at this point continuation of her medical regimen would be indicated. This will include dual anti-platelet therapy, isosorbide mononitrate, metoprolol succinate and ranolazine. She did recently suffer an NSTEMI. At the time of her discharge she was placed on warfarin, likely due to concerns over an apical wall motion abnormality that was new. However, given her degree of anemia and supratherapeutic INR as well as the fact that her event was a few weeks ago now, I think would be reasonable to stop the warfarin. Plavix and aspirin should be continued. 2. Valvular heart disease: Moderate mitral stenosis and mild aortic stenosis. No current symptoms. I do not think the mitral stenosis alone represents an independent indication for anticoagulation. No history of atrial fibrillation, no recent ventricular thrombus or thromboembolic events. 3. Hypertension: Improved. For persistently elevated pressures, amlodipine could be considered 4. Diastolic heart failure: She appears well compensated currently. She follows in the [facility] failure [facility]. History of Present Illness Reason for Consultation: Supratherapeutic INR Requesting Physician: Jaimie Attending Physician: Eric Etienne, History of Present Illness the patient is a 80-year-old woman with an extensive history of cardiac disease to include valvular heart disease, coronary disease status post surgical revascularization, chronic angina and diastolic heart failure who initially presented to the hospital in late September with an extended episode of chest dis comfort. She was discovered to have elevated biomarkers at that time. Conservative approach was adopted in the patient was discharged on medical therapy. This included the addition of warfarin to dual anti-platelet therapy. Yesterday, the patient was notified by the nursing staff that her INR was supratherapeutic and she should present to the emergency room. She was noted to be hypertensive in the emergency room and admitted for observation. The patient states that she had not experienced any acute symptoms yesterday. She has had 2 episodes of typical chest discomfort since discharge. Both the she treated with nitroglycerin. Most recent was approximately 1 week ago. The episodes themselves are fairly random and not associated with activity. She has difficulty describing symptoms entirely. She appears to be fairly limited with respect to activity and uses a wheeled walker to push herself around. Activity is primarily limited by left lower extremity and back discomfort. Although, she will describe symptoms of dyspnea and occasional chest pain as well. she has not report worsening shortness of breath recently. Currently comfortable. She seems somewhat frustrated by her multiple medical conditions And inability to be more mobile and active Allergies Allergy/AdvReac Type Severity Reaction Status Date / Time risperidone [From Risperdal] Allergy Unknown ON [facility] Verified 10/20/20 19:39 LIST Home Medications Medication Instructions Recorded Confirmed Type omega 0-jqs-usp-fish oil 1,000 mg 1,000 mg PO BIDM 06/12/18 10/20/20 History (120 mg-180 mg) capsule (Fish Oil) furosemide 20 mg tablet (Lasix) 20 mg PO QAM #90 tab 06/03/20 10/20/20 Rx ranolazine 1,000 mg 1,000 mg PO BID #180 tab 06/03/20 10/20/20 Rx tablet,extended release,12 hr clopidogrel 75 mg tablet (Plavix) 75 mg PO DAILY #90 tab 06/21/20 10/20/20 Rx rosuvastatin 40 mg tablet 40 mg PO HS #90 tab 06/21/20 10/20/20 Rx aspirin 81 mg tablet,delayed 81 mg PO HS 09/30/20 10/20/20 History release (Aspirin Low Dose) levothyroxine 50 mcg tablet 50 mcg PO DAILYBB 09/30/20 10/20/20 History isosorbide mononitrate 30 mg 30 mg PO QAM 30 Days #30 tab 10/02/20 10/20/20 Rx tablet,extended release 24 hr metoprolol succinate 25 mg 75 mg PO QAM 30 Days #90 tab 10/02/20 10/20/20 Rx tablet,extended release 24 hr nitroglycerin 0.4 mg sublingual 0.4 mg SUBLINGUAL UD PRN #25 tab 10/08/20 10/20/20 Rx tablet (Nitrostat) famotidine 10 mg tablet 10 mg PO DAILY 10/11/20 10/20/20 History insulin glargine 100 unit/mL (3 4 - 10 unit SUBCUT AMPM 10/20/20 10/20/20 History mL) subcutaneous pen (Lantus Solostar U-100 Insulin) insulin lispro 100 unit/mL 4 - 12 units SUBCUT TIDWMEAL 10/20/20 10/20/20 History subcutaneous pen (Humalog KwikPen (U-100) Insulin) patiromer calcium sorbitex 8.4 8.4 g PO DAILY 10/20/20 10/20/20 History gram oral powder packet (Veltassa) warfarin 5 mg tablet 2.5 mg PO 4XWK 10/20/20 10/20/20 History warfarin 5 mg tablet 5 mg PO 3XWK 10/20/20 10/20/20 History Patient History Medical History (Updated 10/20/20 @ 20:00 by Zia Kang DO) Anemia CAD (coronary artery disease) Chronic kidney disease, stage IV (severe) 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 Diabetic retinopathy, nonproliferative GERD without esophagitis History of breast cancer Lumpectomy plus radiation Hyperlipidemia Hypertension Hypothyroidism Mild cardiomegaly Mitral stenosis 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 Surgical History H/O lumpectomy left breast 1985 History of appendectomy History of lumbar surgery S/P CABG x 4 (1994) Family History Brother Alcohol abuse Heart disease Diabetes Hypertension Kidney disease Myocardial infarction Father Myocardial infarction Hypertension Diabetes Heart disease Stroke, Onset Age: 56 of stroke at age 56 Mother Heart disease Diabetes Gallbladder disease Myocardial infarction Unknown Breast cancer Other Family history non-contributory Social History Smoking Status: Never smoker Second Hand Exposure: No; Hx Alcohol Use: No Hx Substance Use: No Preferred Language: Pashto Communication Ability: Effective Visual Impairment: No Limitations Hearing Ability: Normal Protocol Manager Required: No Beliefs That Will Affect Care: None marital status: / Current Living Situation: Alone Current Living Situation Comment: lives in [facility] in [place], [place] current occupational status: retired How many Children do You have: 7 How many Children do You have Comment: 3 biological and adopted 4 Feels Safe at Home: Yes Childhood Exposure to Second-Hand Smoke: No caffeine: Yes (Soda occasional intake) during the past year weight has: remained stable Dental Care, Regularly: No Physical Activity Frequency: Daily Seatbelt Use: always Sunscreen Use: No Assistive Devices: Walker Review of Systems Review of Systems: All systems reviewed & are unremarkable except as noted in HPI & below Physical Exam Physical Exam: She is alert and oriented x3. Mood affect appear normal. She answered all questions appropriately. obese HEENT: Sclerae are anicteric. Pupils are equal and reactive to light and accommodation. Extraocular movements were intact. Neuro: Cranial nerves intact Neck: Examination of the submandibular region did not reveal any significant lymphadenopathy. Carotids are palpable bilaterally and free of bruits on auscultation. There was no evidence of jugular venous distention. The thyroid was not enlarged. Lungs: Lungs are clear to auscultation bilaterally with occasional crackle in the base. There are no rales wheezes or rhonchi. She has normal respiratory effort without use of accessory muscles. There is normal pulmonary excursion. Cardiac: The rhythm was regular. S1 and S2 were normal. Soft systolic murmur appreciated. The PMI was not markedly displaced on palpation. Abdomen: The abdomen was soft and nontender. Extremities: Patient has bilateral radial pulses that are equal in intensity. There is no evidence cyanosis or clubbing. Skin: There are no rashes noted on examination today. Results & Data ([facility]) Vital Signs (Past 12 Hours) Vital Signs Temp Pulse Resp BP BP Pulse Ox 10/21/20 14:21 36.9 C 73 18 148/58 H 96 10/21/20 07:15 37.1 C 65 16 125/66 95 Laboratory Results Abnormal Lab Results 10/20/20 10/20/20 10/20/20 18:05 18:05 18:05 WBC 6.72 RBC 3.18 L Hgb 9.3 L Hct 29.1 L MCV 91.5 MCH 29.2 MCHC 32.0 RDW Std Deviation 49.2 H RDW Coeff of Shelli 14.6 H Plt Count 203 MPV 10.3 Immature Gran % (Auto) 0.4 Neut % (Auto) 60.3 Lymph % (Auto) 29.0 [place] % (Auto) 7.4 Eos % (Auto) 2.8 Baso % (Auto) 0.1 Neut # (Auto) 4.04 Lymph # (Auto) 1.95 [place] # (Auto) 0.50 Eos # (Auto) 0.19 Baso # (Auto) 0.01 Immature Gran # (Auto) 0.03 H PT 57.2 H INR 6.6 H* APTT 77.0 H* PTT Ratio 2.9 Sodium 136 Potassium 4.6 Chloride 105 Carbon Dioxide 26 Anion Gap 5.0 BUN 39 H Creatinine 2.86 H Est Cr Clr Drug Dosing Not Reportable Est GFR ( Amer) 17.3 Est GFR (Non-Af Amer) 14.9 BUN/Creatinine Ratio 13.5 Glucose 155 H POC Glucose Calcium 9.0 Iron TIBC Transferrin Transferrin % Sat Ferritin Total Bilirubin 0.6 AST 16 ALT 16 Alkaline Phosphatase 54 Troponin I < 0.015 Total Protein 8.0 Albumin 3.3 L Globulin 4.7 H Albumin/Globulin Ratio 0.7 L Vitamin B12 Folate COVID-19 Eval Order SARS-CoV-2 (PCR) 10/20/20 10/20/20 10/21/20 20:25 20:25 00:00 WBC RBC Hgb Hct MCV MCH MCHC RDW Std Deviation RDW Coeff of Shelli Plt Count MPV Immature Gran % (Auto) Neut % (Auto) Lymph % (Auto) [place] % (Auto) Eos % (Auto) Baso % (Auto) Neut # (Auto) Lymph # (Auto) [place] # (Auto) Eos # (Auto) Baso # (Auto) Immature Gran # (Auto) PT INR APTT PTT Ratio Sodium Potassium Chloride Carbon Dioxide Anion Gap BUN Creatinine Est Cr Clr Drug Dosing Est GFR ( Amer) Est GFR (Non-Af Amer) BUN/Creatinine Ratio Glucose POC Glucose 194 H Calcium Iron TIBC Transferrin Transferrin % Sat Ferritin Total Bilirubin AST ALT Alkaline Phosphatase Troponin I Total Protein Albumin Globulin Albumin/Globulin Ratio Vitamin B12 Folate COVID-19 Eval Order Covid19 at [facility] SARS-CoV-2 (PCR) NEGATIVE 10/21/20 10/21/20 10/21/20 06:24 06:24 06:24 WBC 6.77 RBC 2.97 L Hgb 8.8 L Hct 26.8 L MCV 90.2 MCH 29.6 MCHC 32.8 RDW Std Deviation 47.9 H RDW Coeff of Shelli 14.7 H Plt Count 198 MPV 10.5 H Immature Gran % (Auto) 0.4 Neut % (Auto) 60.4 Lymph % (Auto) 24.4 [place] % (Auto) 12.3 Eos % (Auto) 2.4 Baso % (Auto) 0.1 Neut # (Auto) 4.09 Lymph # (Auto) 1.65 [place] # (Auto) 0.83 H Eos # (Auto) 0.16 Baso # (Auto) 0.01 Immature Gran # (Auto) 0.03 H PT 16.7 H INR 1.7 H APTT PTT Ratio Sodium 139 Potassium 4.2 Chloride 107 Carbon Dioxide 27 Anion Gap 5.0 BUN 39 H Creatinine 2.71 H Est Cr Clr Drug Dosing 17.7 Est GFR ( Amer) 18.5 Est GFR (Non-Af Amer) 15.9 BUN/Creatinine Ratio 14.3 Glucose 175 H POC Glucose Calcium 8.6 Iron TIBC Transferrin Transferrin % Sat Ferritin Total Bilirubin AST ALT Alkaline Phosphatase Troponin I Total Protein Albumin Globulin Albumin/Globulin Ratio Vitamin B12 Folate COVID-19 Eval Order SARS-CoV-2 (PCR) 10/21/20 10/21/20 10/21/20 08:01 09:36 09:36 WBC RBC Hgb Hct MCV MCH MCHC RDW Std Deviation RDW Coeff of Shelli Plt Count MPV Immature Gran % (Auto) Neut % (Auto) Lymph % (Auto) [place] % (Auto) Eos % (Auto) Baso % (Auto) Neut # (Auto) Lymph # (Auto) [place] # (Auto) Eos # (Auto) Baso # (Auto) Immature Gran # (Auto) PT INR APTT PTT Ratio Sodium Potassium Chloride Carbon Dioxide Anion Gap BUN Creatinine Est Cr Clr Drug Dosing Est GFR ( Amer) Est GFR (Non-Af Amer) BUN/Creatinine Ratio Glucose POC Glucose 188 H Calcium Iron 53 TIBC 218 L Transferrin 192 L Transferrin % Sat 20 Ferritin 185.0 Total Bilirubin AST ALT Alkaline Phosphatase Troponin I Total Protein Albumin Globulin Albumin/Globulin Ratio Vitamin B12 626 Folate > 20.00 COVID-19 Eval Order SARS-CoV-2 (PCR) 10/21/20 10/21/20 11:59 17:13 WBC RBC Hgb Hct MCV MCH MCHC RDW Std Deviation RDW Coeff of Shelli Plt Count MPV Immature Gran % (Auto) Neut % (Auto) Lymph % (Auto) [place] % (Auto) Eos % (Auto) Baso % (Auto) Neut # (Auto) Lymph # (Auto) [place] # (Auto) Eos # (Auto) Baso # (Auto) Immature Gran # (Auto) PT INR APTT PTT Ratio Sodium Potassium Chloride Carbon Dioxide Anion Gap BUN Creatinine Est Cr Clr Drug Dosing Est GFR ( Amer) Est GFR (Non-Af Amer) BUN/Creatinine Ratio Glucose POC Glucose 156 H 131 H Calcium Iron TIBC Transferrin Transferrin % Sat Ferritin Total Bilirubin AST ALT Alkaline Phosphatase Troponin I Total Protein Albumin Globulin Albumin/Globulin Ratio Vitamin B12 Folate COVID-19 Eval Order SARS-CoV-2 (PCR) Diagnostic Findings echocardiogram performed 10/01/2020: Normal LV systolic function with ejection fraction of 60 65%. Moderate mitral stenosis. Mild aortic stenosis. Small area of apical akinesis PG Care Time/CCT Total # of Minutes Spent Total Time Spent with Patient: Total time spent is greater than 50% in coordination of care (as documented) at patient's floor/unit and/or counseling patient: Coding Level of Care Code 43459 Initial Inpt Care Lvl 3 Diagnoses CAD (coronary artery disease) I25.10 Mitral stenosis I05.0 Stable angina pectoris I20.8 Hx of CABG Z95.1
--- NOTE | 2020-10-21 18:22 | Electrocardiogram Report ---
Test Reason : Blood Pressure : / mmHG Vent. Rate : 063 BPM Atrial Rate : 063 BPM P-R Int : 208 ms QRS Dur : 150 ms QT Int : 500 ms P-R-T Axes : 052 036 -07 degrees QTc Int : 511 ms Normal sinus rhythm Right bundle branch block possible Inferior infarct , age undetermined Abnormal ECG When compared with ECG of 02-OCT-2020 04:30, Left posterior fascicular block is no longer Present T wave inversion now evident in Inferior leads Confirmed by Danilo Echavarria ([id number]) on 10/21/2020 6:21:52 PM Referred By: Desiree Zaman Confirmed By:Ry Echavarria
[2020-10-21] MEDS ORDERED: ASPIRIN 81 MG ECTAB PO SCH (21:00)
[2020-10-22] MEDS ORDERED: Nursing to Pharmacy Communication SCH (00:45)
[2020-10-22] MEDS: LEVOTHYROXINE SODIUM 50 MCG TABLET PO SCH (07:25)
[2020-10-22] MEDS: CLOPIDOGREL BISULFATE 75 MG TAB PO SCH (09:03)
[2020-10-22] MEDS: ISOSORBIDE MONO EXTENDED REL 30 MG TABCR PO SCH (09:03)
[2020-10-22] MEDS: FAMOTIDINE 10 MG TABLET PO SCH (09:03)
[2020-10-22] MEDS: FUROSEMIDE 20 MG TAB PO SCH (09:03)
[2020-10-22] MEDS: METOPROLOL SUCC 25MG EXT REL TAB PO SCH (09:03)
[2020-10-22] MEDS: INSULIN ASPART 100 UNITS/ML 3 ML PEN SC SCH ×2 (09:04→12:45)
[2020-10-22] MEDS: RANOLAZINE 500 MG ER TAB PO SCH (09:04)
[2020-10-22] MEDS: PANTOprazole 40 MG TAB PO SCH (09:04)
[2020-10-22] MEDS: amLODIPine BESYLATE 5 MG TAB PO SCH (09:04)
--- NOTE | 2020-10-22 10:51 | Discharge Summary ---
Date of Service October 22, 2020 Admission HPI Per Admitting Provider 80yo female with CAD, recent NSTEMI, history of CABG, LVH, mitral stenosis, angina, DM2, CKD4, HFpEF, and GERD presents to the ED after outpatient labs showed a supratherapeutic INR at around 7. Patient denies any bleeding. Patient currently endorses mild pain under her right breast, headache, and LE weakness which has been bothering her on and off since she was discharged about three weeks ago (patient was admitted 09/30 for NSTEMI and CHF exacerbation; patient was not considered a candidate for cardiac catheterization and was discharged on 10/02). Patient's BP on arrival was 170/80, but while in the ED this worsened with persistent systolic pressures over 200 and a max of 214/79. Patient initially described her headache as a dull 2/10 headache, but while in the ED, patient noted her headache suddenly worsened to 4/10 and began to hurt worse on the left side of her head. Patient was concerned about this because she reports not having a headache in years. Patient denies current CP, SOB, vision changes, facial droop, slurred speech, abdominal pain, nausea, vomiting, palpitations, cough, or dysuria. Of note, patient did have chest discomfort last week as well as two days ago which resolved with nitro. Denies any associated symptoms at that time including SOB, nausea, vomiting, back pain, or other symptoms. Admission Exam Per Admitting Provider Constitutional: well-appearing, no acute distress HEENT: NCAT, no conjunctival injection CV: regular rhythm, grade 4/6 systolic crescendo-decrescendo murmur, extremities well-perfused, 1+ pitting edema of BL LE up to the mid-calf Resp: CTABL, no wheezes/rales/rhonchi appreciated, no increased work of breathing GI: soft, nondistended, nontender, BS normoactive MSK: mild RLE tenderness to palpation Skin: warm, dry, no rash appreciated Neuro: AOx4, no focal neurological deficits appreciated Principal Diagnosis supratherapeutic INR hypertensive urgency Discharge Exam Constitutional WD/WN, vitals as above Respiratory normal respiratory effort, lungs clear to auscultation Cardiovascular RRR, no murmur, no edema No significant asymmetrical swelling of LLE as compared to RLE Gastrointestinal (Abdomen) normal bowel sounds, soft, nontender, no hepatosplenomegaly Skin no rashes, warm and dry Psychiatric A+Ox3, euthymic affect Discharge Data Allergies Allergy/AdvReac Type Severity Reaction Status Date / Time risperidone [From Risperdal] Allergy Unknown ON [facility] Verified 10/20/20 19:39 LIST Consultations 10/20/20 20:18 ED Decision to Admit Stat 10/21/20 11:10 Consult Cardiology Routine Ordered Studies 10/20/20 21:49 CT head/brain wo con Urgent 10/21/20 11:58 US venous doppler LE BI Routine Hospital Course (1) Hypertension: 80 yo F with HTN, CAD, recent NSTEMI, history of CABG, LVH, mitral stenosis, angina, DM2, CKD4, HFpEF, and GERD admitted for supratherapeutic INR and hypetensive urgency. Hypertensive Urgency: BP 170/80 on arrival, worsened over the course of a few hours to persistent pressures SBP > 200 -- improved with hydralazine. Endorsed mild worsening headache but otherwise no CP/SOB/visual changes Work-up as follows: CT-Head without acute process. Troponins negative, EKG with new T-wave inversion in leads III and aVF, EKG otherwise relatively unchanged from prior, though notable for RBBB and signs of prior infarct. Suspect stress-induced at this point given appreciation in ED and otherwise no symptoms beforehand -- BP normotensive this morning. Continue home metoprolol succinate 75mg daily, isosorbide, amlodipine 5mg daily (new med started on admission). Supratherapeutic INR -- INR 6.6 on admission, downtrended to 1.7 in AM of 10/21 INR elevated to 6.6 on admission in the setting of warfarin therapy which was started about three weeks ago after being admitted for NSTEMI, with TTE at that time showing apical akinesis and moderate MS (started as preventative measure for thrombus formation). In setting of 3 small meals a day and one missed INR check -- suspect component of nutritional relationship. No major medication interactions otherwise. Hold home Warfarin for now; and s/p Vitamin D x1 in ER. Consult cardiology performed and appreciate recommendations: -- Drs. Echavarria and Alonso agree that warfarin in this setting risks outweigh benefits. Would continue DAPT. Leg Pain (B/L): Began 10/20 after no specific trigger - no trauma, fall, overuse. Patient's INR supratherapeutic; however, given reproducibility on exam and significant TTP, venous duplex to r/o clot-related process, which was negative. CAD, recent NSTEMI: Continue home metoprolol, clopidogrel, ASA, rosuvastatin. Continue nitro prn chest pain. Angina Continue isosorbide mononitrate, ranolazine. HFpEF: No signs of fluid overload on admission. Echo 10/01 demonstrating: Small area of apical akinesis, no thrombus, mild cLVH, EF 60-65, moderate MS. Continue home furosemide 20mg PO qAM, low sodium diet. CKD4: Creatinine 2.86 on admission, baseline 2.4-2.8. Continue patiromer. DM2: HbA1c 7.1% (10/01/20). Patient's home regimen held on admission, can resume on discharge. GERD: Continue home famotidine. Hypothyroidism: Continue home levothyroxine. FEN: carb-consistent, heart healthy, low sodium diet Code status: DNR/DNI Total Time Total Time Spent Total Time Spent (In Minutes): see attending attestation Discharge Plan Discharge Items Patient Disposition: Home - Self-Care Reason For Visit: SEVERE HYPERTENSION Discharge Diagnosis: supratherapeutic INR, hypertensive urgency Activity: Per Instructions section Non-emergency contact: Primary Care Provider and Cross Tie Maker Call non-emergency contact if: you have any medication questions and your symptoms worsen Follow-up/Referrals: Hever Christianson CRNP [Primary Care Provider] - 11/02/20 10:20 am Fredi Gupta MD [Physician] - 11/04/20 3:30 pm Diet: Carb Consistent or DM2, Heart Healthy and Low Sodium (2gm) Addtl Attending Provider Instructions: You were admitted to the hospital for evaluation of your high blood pressure and your high INR. INR is a marker of thinning of the blood, which was elevated in the setting of recently starting warfarin. In discussion with Dr. Gupta, we feel that this medication's risks outweigh its benefits in your case and will stop this medication. It was initially started to try to prevent clots in the heart due to your recent heart attack. You had high blood pressure on admission to the hospital which improved with a medication called amlodipine. You will continue this medication on discharge; it was sent to [facility] in [place]. Please follow up with both Cardiology and your primary care doctor's office within the next 7-10 days regarding your hospital admission. Your medication changes are outlined below. If not mentioned, the medications you were on at home you should continue to take. 1) STOP warfarin altogether. 2) START amlodipine, one 5 milligram pill once daily for blood pressure. 3) CONTINUE aspirin and Plavix for your heart attack. Pending Studies at Discharge: No Stand-Alone Forms: My [facility], Smoking Cessation Medications and DC Order Prescriptions: New amlodipine [Norvasc] 5 mg Tablet 5 mg PO QAM 30 Days Qty: 30 RF: 0 Continued clopidogrel [Plavix] 75 mg tablet 75 mg PO DAILY Qty: 90 RF: 3 rosuvastatin 40 mg tablet 40 mg PO HS Qty: 90 RF: 3 nitroglycerin [Nitrostat] 0.4 mg tablet, sublingual 0.4 mg sublingual UD PRN (Reason: chest pain) Qty: 25 RF: 3 ranolazine 1,000 mg tablet extended release 12 hr 1,000 mg PO BID Qty: 180 RF: 3 furosemide [Lasix] 20 mg tablet 20 mg PO QAM Qty: 90 RF: 3 famotidine 10 mg tablet 10 mg PO DAILY RF: 0 omega 0-loo-jhc-fish oil [Fish Oil] 1,000 mg (120 mg-180 mg) Capsule 1,000 mg PO BIDM RF: 0 insulin lispro [Humalog KwikPen Insulin] 100 unit/mL insulin pen 4 - 12 units SUBCUT TIDWMEAL RF: 0 Lantus Solostar U-100 Insulin 100 unit/mL (3 mL) insulin pen 4 - 10 unit subcut AMPM RF: 0 Veltassa 8.4 gram powder in packet 8.4 g PO DAILY RF: 0 levothyroxine 50 mcg tablet 50 mcg PO DAILYBB RF: 0 aspirin [Aspirin Low Dose] 81 mg Tablet,Delayed Release (Dr/Ec) 81 mg PO HS RF: 0 isosorbide mononitrate 30 mg Tablet Extended Release 24 Hr 30 mg PO QAM 30 Days Qty: 30 RF: 0 metoprolol succinate 25 mg Tablet Extended Release 24 Hr 75 mg PO QAM 30 Days Qty: 90 RF: 0 Discontinued warfarin 5 mg tablet 5 mg PO 3XWK RF: 0 warfarin 5 mg Tablet 2.5 mg PO 4XWK RF: 0 Discharge Orders: Discharge Order (Routine); Ordered 10/22/20 Ordered By: Peg Salazar Admission Data Admit Date/Time: 10/20/20 21:48 Attending Provider: Ignacio Box Admit Provider: Nicolas Leija Primary Care Provider: Hever Christianson Other Interventions: Discharge Summary Assessment (RN) Last Done: 10/22/20 12:08 Supervising Physician Co-Signing Physician Notes Patient seen and examined independently of PGY-3 Dr. Salazar. Agree with history, exam findings, assessment and plan of care as outlined. In brief, Colette is an 80 year old female with history significant for CAD, CKD, DM, GERD, HTN and HLD admitted with a supratherapeutic INR. In the ED, BP was significantly elevated requiring IV antihypertensives. Today, she is feeling well. No complaints. Vital signs and nursing notes reviewed. Heart with regular rate and rhythm. 2/6 JERILYN at LSB. No lower extremity edema. Lungs clear to auscultation. Labs and imaging reviewed. 1. supratherapeutic INR. Resolved s/p vitamin K in the ED. Appreciate cardiology recommendations regarding stopping Coumadin altogether. Now that she does not require Coumadin, suspect that her INR will normalize in a few days. 2. Hypertensive urgency. Resolved. 3. Anemia of chronic disease. Stable. Can consider epo as an outpatient. 4. CAD, recent NSTEMI. Continue ASA, Plavix, statin. Stop Coumadin. Other chronic issues stable. Home medications continued. I personally spent 25 minutes discharge planning for this patient. Resident Activity Tracking Resident Involvement: Resident Care Provided Care Provided: Adult Hospital Medicine
[2020-10-22] MEDS ORDERED: PATIROMER CALCIUM SORBITEX 8.4 GM PACK PO SCH (12:00)
== END 2020-10-22 14:32 | disposition home or self-care (01) ==
LOC: 3N 17:12 → ED 17:12 → SUATTDRO 21:48 → 3N 23:46